=== PATIENT | female | born 1965 | race Hispanic/Latino ===

== ENCOUNTER 2017-10-22 16:16 | Emergency (ER) | payer OTHER ==
--- NOTE | 2017-10-22 16:41 | EDPHYS ---
Physician Documentation [facility] Name: Kianna Horton Age: 52 yrs Sex: Female : 1965 Arrival Date: 10/22/2017 Time: 16:20 Bed 13 Private MD: ED Physician Momo Up HPI: 10/22 16:35 This 52 yrs old Female presents to ER via Unassigned with complaints of joint rn pains. 16:35 Reports generalized aches and pains for months, told has arthritis, mad MRIs of knees rn yesterday, pcp just sent bloodwork, no results yet, states was tired of waiting for answers thought we could do faster tests here, so came in for evaluation. . Severity of symptoms: At their worst the symptoms were mild in the emergency department the symptoms are unchanged. The patient has experienced similar episodes in the past, chronically. 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 - Social history:: Smoking status: Patient/guardian denies using tobacco. - Family history:: not pertinent. - Hospitalizations: : No recent hospitalization is reported. ROS: 16:35 Constitutional: Negative for fever, chills, and weight loss, Eyes: Negative for injury, rn pain, redness, and discharge, Neck: Negative for injury, pain, and swelling, Cardiovascular: Negative for chest pain, palpitations, and edema, Respiratory: Negative for shortness of breath, cough, wheezing, and pleuritic chest pain, Abdomen/GI: Negative for abdominal pain, nausea, vomiting, diarrhea, and constipation, Back: Negative for injury and pain, MS/Extremity: Negative for injury and deformity, Skin: Negative for injury, rash, and discoloration, Neuro: Negative for headache, weakness, numbness, tingling, and seizure. Exam: 16:35 Constitutional: This is a well developed, well nourished patient who is awake, alert, rn and in no acute distress. Eyes: Pupils equal round and reactive to light, extra-ocular motions intact. Lids and lashes normal. Conjunctiva and sclera are non-icteric and not injected. Cornea within normal limits. Periorbital areas with no swelling, redness, or edema. Neck: Trachea midline, no thyromegaly or masses palpated, and no cervical lymphadenopathy. Supple, full range of motion without nuchal rigidity, or vertebral point tenderness. No Meningismus. Cardiovascular: Regular rate and rhythm with a normal S1 and S2. No gallops, murmurs, or rubs. Normal PMI, no JVD. No pulse deficits. Respiratory: Lungs have equal breath sounds bilaterally, clear to auscultation and percussion. No rales, rhonchi or wheezes noted. No increased work of breathing, no retractions or nasal flaring. Abdomen/GI: Soft, non-tender, with normal bowel sounds. No distension or tympany. No guarding or rebound. No evidence of tenderness throughout. MS/ Extremity: Pulses equal, no cyanosis. Neurovascular intact. Full, normal range of motion. Equal circumference. Neuro: Awake and alert, GCS 15, oriented to person, place, time, and situation. Cranial nerves II-XII grossly intact. Motor strength 5/5 in all extremities. Sensory grossly intact. Vital Signs: 16:23 BP 128 / 88; Pulse 109; Resp 19; Temp 98.7(O); Pulse Ox 100% on R/A; Weight 62.14 kg rb1 (R); Height 5 ft. 3 in. (160.02 cm) (R); Pain 9/10; 16:23 Body Mass Index 24.27 (62.14 kg, 160.02 cm) rb1 MDM: 16:22 Patient medically screened. rn 16:35 Differential Diagnosis osteoarthritis, polyarthritis, RA, lupus, autoimmune disorder. rn Data reviewed: vital signs, nurses notes, and as a result, I will discharge patient. Counseling: I had a detailed discussion with the patient and/or guardian regarding: the historical points, exam findings, and any diagnostic results supporting the discharge/admit diagnosis, the need for outpatient follow up, to return to the emergency department if symptoms worsen or persist or if there are any questions or concerns that arise at home. Special discussion: I discussed with the patient/guardian in detail that at this point there is no indication for admission to the hospital. It is understood, however, that if the symptoms persist or worsen the patient needs to return immediately for re-evaluation. Based on the history and exam findings, there is no indication for further emergent testing or inpatient evaluation. I discussed with the patient/guardian the need to see the primary care provider for further evaluation of the symptoms. ED course: No emergent testing indicated here, needs to f/u with pcp who has already started w/u, return precautions given and understood.. Administered Medications: No medications were administered Disposition: 10/22/17 16:40 Discharged to Home as Medical Screen. Impression: Polyarthritis, unspecified. - Condition is Stable. - Discharge Instructions: Arthritis, Nonspecific. - Medication Reconciliation Form, Thank You Letter, Antibiotic Education, Prescription Opioid Use form. - Follow up: Private Physician; When: As needed; Reason: Recheck today's complaints, Re-evaluation by your physician. - Problem is chronic. - Symptoms have improved. Signatures: Momo Up MD MD rn Barber, Rebecca, RN RN rb1 Corrections: (The following items were deleted from the chart) 16:40 16:40 10/22/2017 16:40 Discharged to Home. Impression: Polyarthritis, unspecified. rn Condition is Stable. Forms are Medication Reconciliation Form, Thank You Letter, Antibiotic Education, Prescription Opioid Use. Follow up: Private Physician; When: As needed; Reason: Recheck today's complaints, Re-evaluation by your physician. Problem is chronic. Symptoms have improved. rn 16:54 16:40 10/22/2017 16:40 Discharged to Home as Medical Screen. Impression: Polyarthritis, rb1 unspecified. Condition is Stable. Forms are Medication Reconciliation Form, Thank You Letter, Antibiotic Education, Prescription Opioid Use. Follow up: Private Physician; When: As needed; Reason: Recheck today's complaints, Re-evaluation by your physician. Problem is chronic. Symptoms have improved. rn
--- NOTE | 2017-10-22 16:41 | ER ---
Nurse's Notes [facility] Name: Kianna Horton Age: 52 yrs Sex: Female : 1965 Arrival Date: 10/22/2017 Time: 16:20 Bed 13 Private MD: Diagnosis: Polyarthritis, unspecified Presentation: 10/22 16:23 Presenting complaint: EMS states: Pt. is 52 yr. old female and is A x O x 4. Pt. called rb1 for c/o of body pain all over. She has had recent tests done at the doctors but has not received any results yet. The doctor is weaning her off of steroids. Pt. took 1/2 a hydrocodone at 1400 today. History of HTN, ulcerative colitis, and anxiety. Pt. takes medicine for HTN but doesn't know the name of it and also takes Adderall. NKA, BP 122/84, P 113, O2 95% RA. Transition of care: patient was not received from another setting of care. Onset of symptoms is unknown. Initial Sepsis Screen: Does the patient meet any 2 criteria? No. Patient's initial sepsis screen is negative. Does the patient have a suspected source of infection? No. Patient's initial sepsis screen is negative. Care prior to arrival: None. 16:23 Acuity: ANGELICA 3 rb1 16:23 Method Of Arrival: EMS: [facility] Triage Assessment: 16:23 General: Appears in no apparent distress. comfortable, Behavior is calm, cooperative. rb1 Pain: Complains of pain in generalized body aches Pain currently is 9 out of 10 on a pain scale. Neuro: Level of Consciousness is awake, alert, obeys commands, Oriented to person, place, time, situation. Cardiovascular: Capillary refill < 3 seconds is brisk in bilateral fingers. Respiratory: Airway is patent Respiratory effort is even, unlabored, Respiratory pattern is regular, symmetrical. GI: No signs and/or symptoms were reported involving the gastrointestinal system. : No signs and/or symptoms were reported regarding the genitourinary system. Derm: Skin is pink, warm \T\ dry. Musculoskeletal: Range of motion: intact in all extremities. 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 - Social history:: Smoking status: Patient/guardian denies using tobacco. - Family history:: not pertinent. - Hospitalizations: : No recent hospitalization is reported. Screenin:23 Abuse screen: Denies threats or abuse. Nutritional screening: No deficits noted. rb1 Tuberculosis screening: No symptoms or risk factors identified. Fall Risk None identified. Assessment: 16:23 General: see triage assessment. rb1 Vital Signs: 16:23 BP 128 / 88; Pulse 109; Resp 19; Temp 98.7(O); Pulse Ox 100% on R/A; Weight 62.14 kg rb1 (R); Height 5 ft. 3 in. (160.02 cm) (R); Pain 9/10; 16:23 Body Mass Index 24.27 (62.14 kg, 160.02 cm) rb1 ED Course: 16:20 Patient arrived in ED. aj1 16:22 Momo Up MD is Attending Physician. rn 16:23 Arm band placed on right wrist. rb1 16:23 Patient has correct armband on for positive identification. Bed in low position. Call rb1 light in reach. Side rails up X 1. Pulse ox on. NIBP on. 16:32 Kathleen Salguero, RN is Primary Nurse. rb1 16:37 Triage completed. rb1 16:54 No provider procedures requiring assistance completed. Patient did not have IV access rb1 during this emergency room visit. Administered Medications: No medications were administered Outcome: 16:40 Discharge ordered by . rn 16:54 Patient left the ED. rb1 16:54 Discharged to home via wheelchair. rb1 16:54 Condition: stable 16:54 Discharge instructions given to patient, Instructed on discharge instructions, follow up and referral plans. Demonstrated understanding of instructions, follow-up care, Prescriptions given X none Signatures: Maida Fritz RN RN aj1 Momo Up MD MD rn Barber, Rebecca, DANISH RN rb1
== END 2017-10-22 16:54 | disposition home or self-care (01) ==
LOC: ER 16:16
DX: M13.0 Polyarthritis, unspecified (principal); I10 Essential (primary) hypertension; F41.9 Anxiety disorder, unspecified
CPT/HCPCS: 99283

== ENCOUNTER 2018-02-12 16:39 | Emergency (ER) | payer OTHER ==
--- OUTSIDE RECORDS SUMMARY | 2018-02-12 16:41 | XMS REPORT | Continuity of Care Document ---
:1965 Author Organization Interface Problems Problem Status Onset Classification Date Comments Source Date Reported ABDOMINAL PAIN Active Sugar GENERALIZED-R10 6 Land .84 / ULCE Nonspecific Active Problem 01/07/2017 [facility] ulcerative [place], colitis [facility] Medications Medication Details Route Status Patient Ordering Order Source Instructions Provider Date Allergies, Adverse Reactions, Alerts Substance Category Reaction Severity Reaction Status Date Comments Source type Reported NKDA Assertion Drug Active [facility] allergy [place] Immunizations Immunization Date Given Site Status Last Updated Comments Source Results Order Results Value Reference Date Interpretation Comments Source Name Range Abdomen Abdomen Study: Abdomen complete US 01/04 - [facility] complete complete /2016 - [place] US US Clinical Indication: R74.0 Nonspecific elevation of levels of transaminase and lactic acid dehydrogenase [LDH] - R74.0 Nonspecific elevation of levels of transaminase and lactic acid dehydrogenase [LDH] Read by: Paramjit Campbell MD Dictated Date/time: 01/04/17 09:43 Electronically Signed by: Paramjit Campbell MD 01/04/17 09:46 FINAL REPORT Comparison: MRI of the abdomen from 12/21/2016. TECHNIQUE: Grayscale and limited color sonographic evaluation of the abdomen was performed with standard technique. FINDINGS: The liver is echogenic measuring 17.1 cm.The visualized portions of the pancreas are unremarkable. The visualized portions of the abdominal aorta and IVC are unremarkable. The gallbladder is mildly contracted. 4 mm polyp in the gallbladder lumen is seen. No pericholecystic fluid is present. No echogenic shadowing gallstone or gallbladder sludge is present. There is no biliary duct dilatation. Common bile duct measures 4 mm. The bilateral kidneys are normal in size and echotexture without stones or hydronephrosis. The right kidney measures 10.8 x 3.5 x 5 cm. The left kidney measures 10.9 x 5 x 5.3 cm. The spleen is normal in size and echotexture measuring 7.1 cm. The main portal vein is patent and with hepatopedal flow. The right, middle , and left hepatic veins are patent with hepatofugal flow. Hepatic artery is patent. No free fluid is noted. IMPRESSION: 1. Hepatomegaly with increased echotexture of the liver, compatible with fatty infiltration or fibrosis. 2. 4 mm gallbladder polyp. SL: [id number] Abdomen Abdomen 12/21 - [facility] wo /2016 - [place] contrast contrast EXAM: Abdomen wo contrast MRI MRI MRI Read by: Paramjit Campbell MD Dictated Date/time: 12/21/16 10:57 INDICATION: R10.13 Epigastric pain - R10.13 Epigastric pain Electronically Signed by: Paramjit Campbell MD 12/21/16 11 :00 FINAL REPORT COMPARISON: CT abdomen and pelvis from 01/30/2009 TECHNIQUE: Multiplanar, multisequence magnetic resonance imaging of the abdomen was performed without the administration of intravenous gadolinium contrast. MRCP protocol was utilized. FINDINGS: Hepatomegaly is noted. No filling defect is noted throughout the gallbladder to suggest stone. No intrahepatic or extra hepatic biliary duct dilatation is seen. Common bile duct measures 3 mm in diameter. No filling defect in the common bile duct to suggest stone is seen. No pancreatic ductal dilatation is noted. Pancreas, spleen, adrenal glands, and kidneys are normal in appearance. No pathologic adenopathy or ascites is seen. IMPRESSION: 1. No intrahepatic or extrahepatic biliary duct dilatation and no evidence of choledocholithiasis. 2. No cholelithiasis. 3. Hepatomegaly. SL: [id number] Vital Signs Vital Sign Value Date Comments Source Weight 46.818 10/12/2015 [facility] BMI Calculated 20.16 10/12/2015 [facility] Height 152.4 cm 10/12/2015 [facility] Encounters Location Location Encounter Encounter Reason Attending ADM DC Status Source Details Type Number For Provider Date Date Visit Outpatient [id number] SILVINO 09/07 [facility] Outpatient [id number] SILVINO 09/28 [facility] Bedded [id number] Silvino 10/13 10/13 [facility] Outpatient Garcia /2015 [facility] Outpatient [id number] SILVINO 11/02 [facility] Outpatient [id number] SILVINO 01/18 [facility] Outpt Diag [id number] Fritz 12/21 12/22 [facility] Outpt Diag [id number] Fritz 01/04 01/05 [facility] Outpatient Services [facility] [address] Procedures Procedure Code Date Perfomer Comments Source
[2018-02-12] MEDS ORDERED: ONDANSETRON 4 MG/2 ML VIAL ONE (18:56)
[2018-02-12] MEDS ORDERED: NA CHLORIDE 0.9% 1,000 ML ONE (18:56)
[2018-02-12] MEDS ORDERED: MORPHINE 4 MG/ML SYR ONE (18:56)
[2018-02-12 19:35] LABS: Absolute Lymphocytes (CBC) 2.2 K/uL (0.7-4.9); Absolute Monocytes 1.1 K/uL (0.1-1.3); Absolute Neutrophil 9.6 K/uL (1.8-8.0); Basophils % 1.4 % (0-1.3); Eosinophils % 1.1 % (0-4.4); Hematocrit 38.1 % (36.0-45.0); Lymphocytes % 16.3 % (15.3-44.8); MCH 24.9 pg (27.0-35.0); MCV 75.9 fL (80-100); MPV 8.2 fL (7.6-11.3); Monocytes % 8.3 % (3.3-12.3); RBC Red Blood Cell Count 5.02 M/uL (3.86-4.86)
[2018-02-12 19:44] LABS: Potassium 3.8 mmol/L (3.5-5.1)
--- NOTE | 2018-02-12 20:16 | RAD REPORT ---
EXAM DESCRIPTION: CTAbdomen Pelvis W Contrast - 02/12/2018 8:02 pm CLINICAL HISTORY: Abdominal pain. bilateral flank pain, iv contrast only;Abd pain COMPARISON: CT ABD PELVIS W CONTRAST dated 10/12/2014 TECHNIQUE: Biphasic CT imaging of the abdomen and pelvis was performed with 100 ml non-ionic IV cont rast. All CT scans are performed using dose optimization technique as appropriate and may include automated exposure control or mA/KV adjustment according to patient size. FINDINGS: The lung bases are clear. The liver, spleen, pancreas, adrenal glands are within normal limits. The pelvicaliceal system of bot h kidneys appear somewhat prominent. There is mild enhancement suspected of the uroepithelium bilater ally, greater on the right. The findings raise suspicion for ascending urinary tract infection. CT fi ndings of pyelonephritis are not seen. No bowel obstruction, free air, free fluid or abscess. The colon is incompletely distended and is not fully evaluated. The appendix is normal. No evidence of significant lymphadenopathy. Lumbosacral degenerative changes are noted. IMPRESSION: Findings suspicious for ascending urinary tract infection are noted. Recommend correlati on with urinalysis. Elsewhere, no acute abnormality is detected.
[2018-02-12 20:25] LABS: Urine Blood 3+ (NEG); Urine Glucose NEGATIVE (NEG); Urine Protein 3+ (NEG); Urine Specific Gravity 1.025 (1.005-1.030)
--- NOTE | 2018-02-12 20:46 | EDPHYS ---
Physician Documentation [facility] Name: Kianna Horton Age: 52 yrs Sex: Female : 1965 Arrival Date: 02/12/2018 Time: 16:40 Bed 23 Private MD: Jamarcus Young E ED Physician Wallace Lemons HPI: 02/12 19:48 This 52 yrs old Female presents to ER via Wheelchair with complaints of kb Abdominal Pain, Vomiting. 19:48 The patient complains of pain in the left flank and right flank. The pain does not kb radiate. Onset: The symptoms/episode began/occurred yesterday. Modifying factors: The symptoms are alleviated by nothing. the symptoms are aggravated by palpation/percussion. Associated signs and symptoms: Pertinent positives: nausea, vomiting. Severity of pain: At its worst the pain was moderate in the emergency department the pain is unchanged. The patient has not experienced similar symptoms in the past. The patient has not recently seen a physician. 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 - Social history:: Smoking status: Patient uses tobacco products, smokes one-half pack cigarettes per day. - Ebola Screening: : No symptoms or risks identified at this time. ROS: 19:48 Constitutional: Negative for fever, chills, and weight loss, Cardiovascular: Negative kb for chest pain, palpitations, and edema, Respiratory: Negative for shortness of breath, cough, wheezing, and pleuritic chest pain, : Negative for injury, bleeding, discharge, and swelling, MS/Extremity: Negative for injury and deformity, Skin: Negative for injury, rash, and discoloration, Neuro: Negative for headache, weakness, numbness, tingling, and seizure. 19:48 Abdomen/GI: Positive for nausea and vomiting, Negative for abdominal pain, diarrhea, constipation, abdominal cramps, abdominal distension, anorexia. Exam: 19:50 Constitutional: This is a well developed, well nourished patient who is awake, alert, kb and in no acute distress. Head/Face: Normocephalic, atraumatic. ENT: Nares patent. No nasal discharge, no septal abnormalities noted. Tympanic membranes are normal and external auditory canals are clear. Oropharynx with no redness, swelling, or masses, exudates, or evidence of obstruction, uvula midline. Mucous membranes moist. Neck: Trachea midline, no thyromegaly or masses palpated, and no cervical lymphadenopathy. Supple, full range of motion without nuchal rigidity, or vertebral point tenderness. No Meningismus. Chest/axilla: Normal chest wall appearance and motion. Nontender with no deformity. No lesions are appreciated. Cardiovascular: Regular rate and rhythm with a normal S1 and S2. No gallops, murmurs, or rubs. Normal PMI, no JVD. No pulse deficits. Respiratory: Lungs have equal breath sounds bilaterally, clear to auscultation and percussion. No rales, rhonchi or wheezes noted. No increased work of breathing, no retractions or nasal flaring. Abdomen/GI: Soft, non-tender, with normal bowel sounds. No distension or tympany. No guarding or rebound. No evidence of tenderness throughout. Skin: Warm, dry with normal turgor. Normal color with no rashes, no lesions, and no evidence of cellulitis. MS/ Extremity: Pulses equal, no cyanosis. Neurovascular intact. Full, normal range of motion. Neuro: Awake and alert, GCS 15, oriented to person, place, time, and situation. Cranial nerves II-XII grossly intact. Motor strength 5/5 in all extremities. Sensory grossly intact. Cerebellar exam normal. Normal gait. 19:50 Back: CVA tenderness, that is moderate, is noted on the right, is noted on the left. Vital Signs: 16:57 BP 143 / 98; Pulse 91; Resp 18 S; Temp 98.0(TE); Pulse Ox 100% on R/A; Weight 54.43 kg aa5 (R); Height 5 ft. 0 in. (152.40 cm) (R); Pain 10/10; 21:13 BP 149 / 105; Pulse 77; Resp 18; Pulse Ox 97% on R/A; tl3 16:57 Body Mass Index 23.44 (54.43 kg, 152.40 cm) aa5 MDM: 18:19 Patient medically screened. kb 19:50 Data reviewed: vital signs, nurses notes. Data interpreted: Pulse oximetry: on room air kb is 100 %. Interpretation: normal. 20:33 Counseling: I had a detailed discussion with the patient and/or guardian regarding: the kb historical points, exam findings, and any diagnostic results supporting the discharge/admit diagnosis, lab results, radiology results, the need for outpatient follow up, a family practitioner, to return to the emergency department if symptoms worsen or persist or if there are any questions or concerns that arise at home. 02/12 18:23 Order name: CBC with Diff; Complete Time: 19:46 kb 02/12 18:23 Order name: Basic Metabolic Panel; Complete Time: 19:46 kb 02/12 18:23 Order name: Urine Microscopic Only; Complete Time: 21:13 kb 02/12 19:45 Order name: Urine Dipstick--Ancillary (enter results); Complete Time: 20:31 rg2 02/12 19:45 Order name: Urine --Ancillary (enter results); Complete Time: 20:31 rg2 02/12 18:23 Order name: Urine Dipstick-Ancillary (obtain specimen) kb 02/12 18:24 Order name: IV Start; Complete Time: 21:05 kb 02/12 19:47 Order name: CT Abd/Pelvis - W/Contrast; Complete Time: 20:18 kb Administered Medications: 19:00 Drug: NS 0.9% 1000 ml Route: IV; Rate: 1000 ml; Site: left antecubital; Delivery: tl3 Primary tubing; 20:00 Follow up: IV Status: Completed infusion; IV Intake: 1000ml tl3 19:00 Drug: Zofran 4 mg Route: IVP; Infused Over: 2 mins; Site: left antecubital; tl3 21:06 Follow up: Response: No adverse reaction tl3 19:00 Drug: morphine 4 mg Route: IVP; Infused Over: 3 mins; Site: left antecubital; tl3 21:09 Follow up: Response: Pain is decreased tl3 21:09 Drug: Rocephin - (cefTRIAXone) 1 grams {Note: ivp.} Route: IVPB; Infused Over: 5 mins; tl3 Site: left antecubital; 21:09 Follow up: IV Status: Completed infusion; IV Intake: 20ml tl3 Disposition: 02/13 06:49 Co-signature as Attending Physician, Wallace Lemons MD I agree with the assessment and robert plan of care. Disposition: 02/12/18 20:46 Discharged to Home. Impression: Urinary tract infection, site not specified. - Condition is Stable. - Discharge Instructions: Urinary Tract Infection, Adult, [id number], Form - Return To Work. - Prescriptions for Augmentin 875- 125 mg Oral Tablet - take 1 tablet by ORAL route every 12 hours for 10 days; 20 tablet. - Medication Reconciliation Form, Thank You Letter, Antibiotic Education, Prescription Opioid Use, Work release form form. - Follow up: Emergency Department; When: As needed; Reason: Worsening of condition. Follow up: Private Physician; When: 2 - 3 days; Reason: Recheck today's complaints, Continuance of care, Re-evaluation by your physician. Signatures: Dispatcher [employer] EDMS Petra Faye, AGRICULTURAL ENGINEERING TECHNOLOGIST-C AGRICULTURAL ENGINEERING TECHNOLOGIST-Saravananb Wallace Lemons MD MD cha Calderon, Audri, RN RN aa5 Nellie Toribio, RN RN tl3 Corrections: (The following items were deleted from the chart) 02/12 19:50 19:48 Associated signs and symptoms: The patient has no apparent associated signs or kb symptoms, kb 21:16 20:46 02/12/2018 20:46 Discharged to Home. Impression: Urinary tract infection, site tl3 not specified. Condition is Stable. Discharge Instructions: Urinary Tract Infection, Adult, [id number]-Zpli. Prescriptions for Augmentin 875-125 mg Oral Tablet - take 1 tablet by ORAL route every 12 hours for 10 days; 20 tablet. and Forms are Medication Reconciliation Form, Thank You Letter, Antibiotic Education, Prescription Opioid Use. Follow up: Emergency Department; When: As needed; Reason: Worsening of condition. Follow up: Private Physician; When: 2 - 3 days; Reason: Recheck today's complaints, Continuance of care, Re-evaluation by your physician. kb
--- NOTE | 2018-02-12 20:46 | ER ---
Nurse's Notes [facility] Name: Kianna Horton Age: 52 yrs Sex: Female : 1965 Arrival Date: 02/12/2018 Time: 16:40 Bed 23 Private MD: Jamarcus Young E Diagnosis: Urinary tract infection, site not specified Presentation: 02/12 16:56 Presenting complaint: Patient states: shahzad flank pain that began yesterday. Pt reports aa5 nausea, denies vomiting, denies diarrhea. Transition of care: patient was not received from another setting of care. Onset of symptoms was February 2018. Risk Assessment: Do you want to hurt yourself or someone else? Patient reports no desire to harm self or others. Initial Sepsis Screen: Does the patient meet any 2 criteria? No. Patient's initial sepsis screen is negative. Does the patient have a suspected source of infection? No. Patient's initial sepsis screen is negative. Care prior to arrival: None. 16:56 Method Of Arrival: Wheelchair aa5 16:56 Acuity: ANGELICA 3 aa5 Triage Assessment: 21:16 General: Behavior is calm, cooperative, anxious. 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 - Social history:: Smoking status: Patient uses tobacco products, smokes one-half pack cigarettes per day. - Ebola Screening: : No symptoms or risks identified at this time. Screenin:00 Abuse screen: Denies threats or abuse. Nutritional screening: No deficits noted. tl3 Tuberculosis screening: No symptoms or risk factors identified. Fall Risk None identified. Assessment: 17:00 General: Appears distressed, uncomfortable, slender, well groomed, well developed, well tl3 nourished. Pain: Complains of pain in right flank and left flank Pain currently is 10 out of 10 on a pain scale. Neuro: Level of Consciousness is awake, alert, obeys commands. Cardiovascular: Patient's skin is warm and dry. Respiratory: Airway is patent Respiratory effort is even, unlabored, Respiratory pattern is regular, symmetrical. GI: No signs and/or symptoms were reported involving the gastrointestinal system. : Urine is cloudy, Reports urinary frequency. EENT: No signs and/or symptoms were reported regarding the EENT system. Derm: No signs and/or symptoms reported regarding the dermatologic system. Musculoskeletal: No signs and/or symptoms reported regarding the musculoskeletal system. 21:13 Reassessment: No changes from previously documented assessment. Patient and/or family tl3 updated on plan of care and expected duration. Pain level reassessed. Patient is alert, oriented x 3, equal unlabored respirations, skin warm/dry/pink. 21:16 GI: tl3 Vital Signs: 16:57 BP 143 / 98; Pulse 91; Resp 18 S; Temp 98.0(TE); Pulse Ox 100% on R/A; Weight 54.43 kg aa5 (R); Height 5 ft. 0 in. (152.40 cm) (R); Pain 10/10; 21:13 BP 149 / 105; Pulse 77; Resp 18; Pulse Ox 97% on R/A; tl3 16:57 Body Mass Index 23.44 (54.43 kg, 152.40 cm) aa5 ED Course: 16:40 Patient arrived in ED. mr 16:41 Jamarcus Young MD is Private Physician. mr 16:56 Triage completed. aa5 16:58 Arm band placed on Patient placed in waiting room, Patient notified of wait time. aa5 17:00 Patient has correct armband on for positive identification. Bed in low position. Call tl3 light in reach. Side rails up X 1. Adult w/ patient. Pulse ox on. NIBP on. 17:00 No provider procedures requiring assistance completed. Inserted saline lock: 20 gauge tl3 in left antecubital area, using aseptic technique. Blood collected. 18:19 Petra Faye FNP-C is PHCP. kb 18:19 Wallace Lemons MD is Attending Physician. kb 18:48 Nellie Toribio, DANISH is Primary Nurse. tl3 19:[address] sj 20:02 CT completed. Patient tolerated procedure well. Patient moved back from CT. nj 20:03 CT Abd/Pelvis - W/Contrast In Process Unspecified. EDMS 21:13 IV discontinued, intact, bleeding controlled, No redness/swelling at site. Pressure tl3 dressing applied. Administered Medications: 19:00 Drug: NS 0.9% 1000 ml Route: IV; Rate: 1000 ml; Site: left antecubital; Delivery: tl3 Primary tubing; 20:00 Follow up: IV Status: Completed infusion; IV Intake: 1000ml tl3 19:00 Drug: Zofran 4 mg Route: IVP; Infused Over: 2 mins; Site: left antecubital; tl3 21:06 Follow up: Response: No adverse reaction tl3 19:00 Drug: morphine 4 mg Route: IVP; Infused Over: 3 mins; Site: left antecubital; tl3 21:09 Follow up: Response: Pain is decreased tl3 21:09 Drug: Rocephin - (cefTRIAXone) 1 grams {Note: ivp.} Route: IVPB; Infused Over: 5 mins; tl3 Site: left antecubital; 21:09 Follow up: IV Status: Completed infusion; IV Intake: 20ml tl3 Intake: 20:00 IV: 1000ml; Total: 1000ml. tl3 21:09 IV: 20ml; Total: 1020ml. tl3 Outcome: 20:46 Discharge ordered by MD. calderón 21:13 Discharged to home ambulatory. tl3 21:13 Condition: stable 21:13 Discharge instructions given to patient, family, Instructed on discharge instructions, follow up and referral plans. medication usage, Demonstrated understanding of instructions, follow-up care, medications, Prescriptions given X 1. 21:16 Patient left the ED. tl3 Signatures: Dispatcher [employer] EDMS Petra Faye, GREGOR BYRDP-Aria Flowers Susan sj Calderon, Audri, RN RN aa5 Nathanael Lopez Tammy, RN RN tl3
[2018-02-12] MEDS ORDERED: CEFTRIAXONE/SWI 1gm 1 GM/10 ML SYR ONE (21:03)
[2018-02-12 21:10] LABS: Urine Bacteria <20 /HPF (<20); Urine RBC TNTC /HPF (NONE SEEN)
[2018-02-12 21:11] LABS: Urine Culture Reflex Order NOT NEEDED
== END 2018-02-12 21:16 | disposition home or self-care (01) ==
LOC: ER 16:39
DX: N39.0 Urinary tract infection, site not specified (principal); I10 Essential (primary) hypertension; F17.210 Nicotine dependence, cigarettes, uncomplicated
CPT/HCPCS: 36415; 74177; 80048; 81003; 81015; 81025; 85025; 96361; 96374; 96375; 99284; J0696; J2405; J7030; Q9967

== ENCOUNTER 2018-05-23 11:19 | Emergency (ER) | payer OTHER ==
--- OUTSIDE RECORDS SUMMARY | 2018-05-23 11:21 | XMS REPORT | Continuity of Care Document ---
:1965 Author Organization Interface Problems Problem Status Onset Classification Date Comments Source Date Reported ABDOMINAL PAIN Active Sugar GENERALIZED-R10 6 Land .84 / ULCE Nonspecific Active Problem 01/07/2017 [facility] ulcerative [place], colitis [place] Medications Medication Details Route Status Patient Ordering Order Source Instructions Provider Date Allergies, Adverse Reactions, Alerts Substance Category Reaction Severity Reaction Status Date Comments Source type Reported Immunizations Immunization Date Given Site Status Last Updated Comments Source Results Order Results Value Reference Date Interpretation Comments Source Name Range Abdomen Abdomen Study: Abdomen complete US 01/04 - [facility] complete complete /2016 - [place] US US Clinical Indication: R74.0 Nonspecific elevation [...] fibrosis. 2. 4 mm gallbladder polyp. SL: [id number] Abdomen Abdomen 12/21 - [facility] wo wo /2016 - [place] contrast contrast EXAM: Abdomen wo contrast MRI [...] choledocholithiasis. 2. No cholelithiasis. 3. Hepatomegaly. SL: [id number] Vital Signs Vital Sign Value Date Comments Source Weight 46.818 10/12/2015 [facility] BMI Calculated 20.16 10/12/2015 [facility] Height 152.4 cm 10/12/2015 [facility] Encounters Location Location Encounter Encounter Reason Attending ADM [place] Status Source Details Type Number For Provider Date Date Visit Outpatient [id number] SILVINO 09/07 [facility] [place] Outpatient [id number] SILVINO 09/28 [facility] Bedded [id number] Silvino 10/13 10/13 [facility] Outpatient Garcia [facility] Outpatient [id number] SILVINO 11/02 [facility] Outpatient [id number] SILVINO 01/18 [facility] Outpt Diag [id number] Fritz 12/21 12/22 [facility] Outpt Diag [id number] Fritz 01/04 01/05 [facility] Procedures Procedure Code Date Perfomer Comments Source
[2018-05-23] MEDS ORDERED: TETANUS & DIPHTHERIA TOX,ADULT 0.5 ML VIAL ONE (12:11)
[2018-05-23] MEDS ORDERED: IBUPROFEN 400 MG TAB ONE (13:02)
--- NOTE | 2018-05-23 13:07 | RAD REPORT ---
EXAM DESCRIPTION: RAD - Hand Left 3 View - 05/23/2018 12:55 pm CLINICAL HISTORY: Dog bite left second digit COMPARISON: None. FINDINGS: No fracture, dislocation or periosteal reaction noted. No acute bone or joint finding. Min imal soft tissue injury is evident left second digit. No air or foreign body. IMPRESSION: No left hand bone abnormality. No air or foreign body in the soft tissues.
--- NOTE | 2018-05-23 13:13 | ER ---
Nurse's Notes [facility] Name: Kianna Horton Age: 52 yrs Sex: Female : 1965 Arrival Date: 05/23/2018 Time: 11:22 Bed 24 Private MD: Jamarcus Young E Diagnosis: Bitten by dog-Left index finger, right lower leg and upper legs Presentation: 05/23 11:35 Presenting complaint: Patient states: dog bite by a friends dog, bitten to the LLE, sv RLE, and left 2nd digit. Transition of care: patient was not received from another setting of care. Onset of symptoms was May 22, 2018. Care prior to arrival: None. 11:35 Method Of Arrival: Ambulatory sv 11:35 Acuity: ANGELICA 4 sv 11:45 Note [place] PD called and stated they would let their aerospace engineer officer armament know. sv 12:05 Risk Assessment: Do you want to hurt yourself or someone else? Patient reports no ss desire to harm self or others. Initial Sepsis Screen: Does the patient meet any 2 criteria? No. Patient's initial sepsis screen is negative. Does the patient have a suspected source of infection? No. Patient's initial sepsis screen is negative. Triage Assessment: 12:05 Bite description: bite sustained to L hand, R buttock, L buttock by a dog, animal ss information: vaccination(s) is current. 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 - Social history:: Smoking status: Patient uses tobacco products, smokes one pack cigarettes per day. - Ebola Screening: : No symptoms or risks identified at this time. Screenin:00 Abuse screen: Denies threats or abuse. Denies injuries from another. Nutritional ss screening: No deficits noted. Tuberculosis screening: No symptoms or risk factors identified. Never had TB. Fall Risk None identified. Assessment: 11:50 General: Appears in no apparent distress. comfortable, Behavior is cooperative, ss restless, Denies fever, feeling ill, fatigue, chills. Pain: Complains of pain in L finger, R buttock, L thigh Pain currently is 5 out of 10 on a pain scale. Quality of pain is described as tender, Pain began 1 day ago. Is continuous. Neuro: Level of Consciousness is awake, alert, obeys commands, Oriented to person, place, time, situation. Cardiovascular: Capillary refill < 3 seconds is brisk. Respiratory: Airway is patent Respiratory effort is even, unlabored, Respiratory pattern is regular, symmetrical. GI: Patient currently denies diarrhea, nausea, vomiting. : No signs and/or symptoms were reported regarding the genitourinary system. EENT: Nares are clear Oral mucosa is moist. Throat is clear. Derm: Skin is intact, is healthy with good turgor, Skin is pink, warm \T\ dry. normal. Musculoskeletal: Circulation, motion, and sensation intact. Range of motion: intact in all extremities, Swelling absent. Injury Description: small puncture wounds from dog bite noted to L thigh, R buttock, L index finger, no bleeding noted. 12:30 Reassessment: wounds cleaned with saline and hibiclens. Covered with non adherent ss dressing, antibiotic ointment and tape. Pt tolerated well. Is grateful for care received. 13:07 Reassessment: Patient appears in no apparent distress at this time. awaiting XRAY ss results. Vital Signs: 11:37 BP 151 / 117; Pulse 94; Resp 16; Temp 97; Pulse Ox 97% ; Weight 56.7 kg; Height 5 ft. 0 sv in. (152.40 cm); Pain 5/10; 11:37 Body Mass Index 24.41 (56.70 kg, 152.40 cm) sv ED Course: 11:22 Patient arrived in ED. sb2 11:22 Jamarcus Young MD is Private Physician. sb2 11:36 Triage completed. sv 11:38 Arm band placed on. sv 11:48 Wallace Padilla PA is PHCP. cp 11:48 Wallace Lemons MD is Attending Physician. cp 12:00 Kymberly Bishop RN is Primary Nurse. ss 12:00 Patient has correct armband on for positive identification. Bed in low position. Call ss light in reach. 12:52 X-ray completed. Portable x-ray completed in exam room. Patient tolerated procedure ls3 well. 12:56 XRAY Hand LEFT 3 View In Process Unspecified. EDMS 13:08 No provider procedures requiring assistance completed. Patient did not have IV access ss during this emergency room visit. Administered Medications: 12:13 Drug: Tetanus-Diphtheria Toxoid Adult 0.5 ml {Recep: [employer]. Exp: ss 06/28/2020. Lot #: [id number]. } Route: IM; Site: right deltoid; 12:51 Follow up: Response: No adverse reaction ss 12:54 Drug: Ibuprofen 800 mg Route: PO; ss 13:22 Follow up: Response: No adverse reaction; Medication administered at discharge. ss 13:22 Drug: Augmentin 875 mg Route: PO; ss 13:22 Follow up: Response: Medication administered at discharge. Outcome: 13:12 Discharge ordered by MD. cp 13:22 Discharged to home ambulatory. ss 13:22 Condition: good 13:22 Discharge instructions given to patient, Instructed on discharge instructions, follow up and referral plans. medication usage, wound care, Demonstrated understanding of instructions, follow-up care, medications, wound care, Prescriptions given X 2. 13:51 Patient left the ED. kr2 Signatures: Dispatcher [employer] EDKY Marge Hernandez RN RN Kymberly Bishop RN RN Wallace Padilla PA PA cp Reaves, Karey, RN RN kr2 Sweta Gurrola2 Dereck Haywood ls3 Corrections: (The following items were deleted from the chart) 11:38 11:37 BP 151 / 117; Pulse 94bpm; Resp 16bpm; Pulse Ox 97%; Temp 97F; sv sv
--- NOTE | 2018-05-23 13:13 | EDPHYS ---
Physician Documentation [facility] Name: Kianna Horton Age: 52 yrs Sex: Female : 1965 Arrival Date: 05/23/2018 Time: 11:22 Bed 24 Private MD: Jamarcus Young E ED Physician Wallace Lemons HPI: 05/23 11:55 This 52 yrs old Female presents to ER via Ambulatory with complaints of Dog cp Bite. 11:55 The patient was bitten on the left hand, right leg and left leg, by a dog, in an cp unprovoked manner, at a friend's house. 11:55 Onset: The symptoms/episode began/occurred yesterday. Animal information: cp Patient/Caregiver unable to provide information related to the animal. Animal control has been notified. Secondary to the bite the patient reports multiple puncture wounds, that are superficial. Associated signs and symptoms: Pertinent negatives: fever, suspected foreign body. OFFICE ADMINISTRATION: 12:05 LMP N/A - ss Historical: - Allergies: 11:36 No Known Allergies; sv - PMHx: 11:36 Anxiety; Hypertension; ulcerative colitis; sv - PSHx: 11:36 None; sv - Immunization history:: Last tetanus immunization: unknown. - Social history:: Smoking status: Patient uses tobacco products, smokes one pack cigarettes per day. - Ebola Screening: : No symptoms or risks identified at this time. ROS: 12:00 Constitutional: Negative for chills, fever, poor PO intake. cp 12:00 Eyes: Negative for injury, pain, redness, and discharge. cp 12:00 ENT: Negative for drainage from ear(s), ear pain, sore throat, difficulty swallowing, difficulty handling secretions. 12:00 Cardiovascular: Negative for chest pain, edema, palpitations. 12:00 Respiratory: Negative for cough, shortness of breath, wheezing. 12:00 Abdomen/GI: Negative for abdominal pain, nausea, vomiting, and diarrhea. 12:00 Skin: Positive for of the left hand, right leg and left leg, multiple dog bite. 12:00 All other systems are negative. Exam: 12:10 Constitutional: The patient appears in no acute distress, alert, awake, non-toxic, well cp developed, well nourished. 12:10 Head/Face: Normocephalic, atraumatic. cp 12:10 Eyes: Periorbital structures: appear normal, Conjunctiva: normal, no exudate, no injection, Lids and lashes: appear normal, bilaterally. 12:10 ENT: External ear(s): are unremarkable, Nose: is normal, Mouth: is normal, Posterior pharynx: Airway: no evidence of obstruction, patent. 12:10 Chest/axilla: Inspection: normal. 12:10 Cardiovascular: Rate: normal. 12:10 Respiratory: the patient does not display signs of respiratory distress, Respirations: normal, no use of accessory muscles, no retractions, no splinting, no tachypnea. 12:10 Abdomen/GI: Exam negative for discomfort, distension, guarding, Inspection: abdomen appears normal. 12:10 Skin: injury, bite(s), superficial, of the bilateral upper leg and distal phalanx left index finger, that can be described as without bleeding. Vital Signs: 11:37 BP 151 / 117; Pulse 94; Resp 16; Temp 97; Pulse Ox 97% ; Weight 56.7 kg; Height 5 ft. 0 sv in. (152.40 cm); Pain 5/10; 11:37 Body Mass Index 24.41 (56.70 kg, 152.40 cm) sv MDM: 11:48 Patient medically screened. cp 13:11 Data reviewed: vital signs, nurses notes, radiologic studies, plain films, and as a cp result, I will discharge patient. 13:11 Differential diagnosis: superficial laceration, rabies, cellulitis. Test cp interpretation: by ED physician or midlevel provider: plain radiologic studies. Counseling: I had a detailed discussion with the patient and/or guardian regarding: the historical points, exam findings, and any diagnostic results supporting the discharge/admit diagnosis, radiology results, to return to the emergency department if symptoms worsen or persist or if there are any questions or concerns that arise at home. 05/23 12:14 Order name: XRAY Hand LEFT 3 View; Complete Time: 13:08 cp 05/23 13:09 Interpretation: Report reviewed. cp 05/23 12:42 Order name: Wound dressing; Complete Time: 12:51 cp Administered Medications: 12:13 Drug: Tetanus-Diphtheria Toxoid Adult 0.5 ml {Carrier Packer: [employer]. Exp: ss 06/28/2020. Lot #: [id number]. } Route: IM; Site: right deltoid; 12:51 Follow up: Response: No adverse reaction 12:54 Drug: Ibuprofen 800 mg Route: PO; ss 13:22 Follow up: Response: No adverse reaction; Medication administered at discharge. ss 13:22 Drug: Augmentin 875 mg Route: PO; ss 13:22 Follow up: Response: Medication administered at discharge. Disposition: 16:15 Co-signature as Attending Physician, Wallace Lemons MD I agree with the assessment and robert plan of care. Disposition: 05/23/18 13:12 Discharged to Home. Impression: Bitten by dog - Left index finger, right lower leg and upper legs. - Condition is Stable. - Discharge Instructions: Animal Bite. - Prescriptions for Augmentin 875- 125 mg Oral Tablet - take 1 tablet by ORAL route every 12 hours for 10 days; 20 tablet. Tramadol 50 mg Oral Tablet - take 1 tablet by ORAL route every 8 hours as needed; 12 tablet. - Medication Reconciliation Form, Thank You Letter, Antibiotic Education, Prescription Opioid Use form. - Follow up: Private Physician; When: 48 Hours; Reason: Wound Recheck. - Problem is new. - Symptoms have improved. Signatures: Dispatcher [employer] Marge Camilo RN Wallace Rascon MD MD cha Smirch, Shelby RN Wallace Dhillon PA PA cp Reaves, Karey, RN RN kr2 Corrections: (The following items were deleted from the chart) 13:51 13:12 05/23/2018 13:12 Discharged to Home. Impression: Bitten by dog - Left index kr2 finger, right lower leg and upper legs. Condition is Stable. Forms are Medication Reconciliation Form, Thank You Letter, Antibiotic Education, Prescription Opioid Use. Follow up: Private Physician; When: 48 Hours; Reason: Wound Recheck. Problem is new. Symptoms have improved. cp
[2018-05-23] MEDS ORDERED: AMOX/K CLAV 875 MG TAB ONE (13:28)
== END 2018-05-23 13:51 | disposition home or self-care (01) ==
LOC: ER 11:19
DX: S80.872A Other superficial bite, left lower leg, initial encounter (principal); S80.871A Other superficial bite, right lower leg, initial encounter; S60.471A Other superficial bite of left index finger, initial encounter; W54.0XXA Bitten by dog, initial encounter; Y93.9 Activity, unspecified; Y92.89 Other specified places as the place of occurrence of the external cause; Z23 Encounter for immunization; F17.210 Nicotine dependence, cigarettes, uncomplicated; I10 Essential (primary) hypertension
CPT/HCPCS: 90714; 99283

== ENCOUNTER 2018-10-10 16:34 | Emergency (ER) | payer OTHER ==
--- OUTSIDE RECORDS SUMMARY | 2018-10-10 16:35 | XMS REPORT ---
:1965 [facility] Address [address] [place] [id number] Care Team Providers Name Role Phone Unavailable Unavailable Unavailable Problems This patient has no known problems. Allergies, Adverse Reactions, Alerts This patient has no known allergies or adverse reactions. Medications This patient has no known medications.
[2018-10-10] MEDS ORDERED: LIDOCAINE 1% MPF 5 ML VIAL ONE (17:16)
[2018-10-10] MEDS ORDERED: BUPIVACAINE 0.5% PF 10 ML VIAL ONE (17:16)
[2018-10-10] MEDS ORDERED: ACETAMINOPHEN 500 MG TAB ONE (17:28)
--- NOTE | 2018-10-10 17:36 | ER ---
Nurse's Notes [facility] Name: Kianna Horton Age: 53 yrs Sex: Female : 1965 Arrival Date: 10/10/2018 Time: 16:35 Bed 11 Private MD: Diagnosis: Pain in right finger(s)-ulceration to distal index finger Presentation: 10/10 16:55 Presenting complaint: Right index finger pain 10/10 after puncture with crab leg 1 hb month ago. Transition of care: patient was not received from another setting of care. Onset of symptoms is unknown. Risk Assessment: Do you want to hurt yourself or someone else? Patient reports no desire to harm self or others. Initial Sepsis Screen: Does the patient meet any 2 criteria? No. Patient's initial sepsis screen is negative. Does the patient have a suspected source of infection? No. Patient's initial sepsis screen is negative. Care prior to arrival: None. 16:55 Method Of Arrival: Ambulatory hb 16:55 Acuity: ANGELICA 4 hb Triage Assessment: 16:57 General: Appears in no apparent distress. Behavior is calm, cooperative. Pain: Pain hb currently is 10 out of 10 on a pain scale. EENT: No signs and/or symptoms were reported regarding the EENT system. Neuro: Level of Consciousness is awake, alert, obeys commands, Oriented to person, place, time, situation. Cardiovascular: Capillary refill < 3 seconds Patient's skin is warm and dry. Respiratory: Airway is patent Respiratory effort is even, unlabored, Respiratory pattern is regular, symmetrical. GI: No signs and/or symptoms were reported involving the gastrointestinal system. : No signs and/or symptoms were reported regarding the genitourinary system. Derm: Skin is intact, is healthy with good turgor, bruising noted to right index finger pad. Musculoskeletal: Reports right finger pain 10/10. 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 - Social history:: Smoking status: Patient/guardian denies using tobacco. - Ebola Screening: : No symptoms or risks identified at this time. Screenin:58 Abuse screen: Denies threats or abuse. Denies injuries from another. Nutritional hb screening: No deficits noted. Tuberculosis screening: No symptoms or risk factors identified. Fall Risk None identified. Assessment: 16:58 General: see triage assessment. hb 17:18 Reassessment: Pt c/o headache 8/10. VAULT PERSON Petra notified, Tylenol administered as hb ordered. Vital Signs: 16:56 BP 139 / 92; Pulse 88; Resp 16; Temp 98.1; Pulse Ox 100% ; Pain 10/10; hb ED Course: 16:35 Patient arrived in ED. as 16:55 Petra Faye FNP-C is [facility]. kb 16:55 Momo Up MD is Attending Physician. kb 16:56 Triage completed. hb 16:56 Arm band placed on. hb 16:58 Patient has correct armband on for positive identification. Bed in low position. Call hb light in reach. 17:08 Cindy Bean, RN is Primary Nurse. hb Administered Medications: 17:08 Drug: Lidocaine (1 %) 1 vials {Note: administered by FELIPE Lambert.} Volume: 5 ml; Route: hb Infiltration; 17:09 Drug: Marcaine (0.5 %) 1 vials {Note: administered by FELIPE Lambert.} Volume: 10 ml; hb Route: Infiltration; 17:17 Drug: Tylenol 1000 mg Route: PO; hb Outcome: 17:35 Discharge ordered by . kb 18:03 Patient left the ED. hb Signatures: Petra Faye FNP-C FNP-Ckb Martinez, Amelia as Cindy Bean, RN RN hb
--- NOTE | 2018-10-10 17:36 | EDPHYS ---
Physician Documentation [facility] Name: Kianna Horton Age: 53 yrs Sex: Female : 1965 Arrival Date: 10/10/2018 Time: 16:35 Bed 11 Private MD: ED Physician Momo Up HPI: 10/10 17:07 This 53 yrs old Female presents to ER via Ambulatory with complaints of Finger kb Problem. 17:09 the patient presents with a swollen area of the palmar aspect of distal phalanx of kb right index finger. Description: erythematous, swollen. Onset: The symptoms/episode began/occurred 2 month(s) ago. Possible cause(s): unknown. Associated signs and symptoms: Pertinent positives: erythema, swelling, Pertinent negatives: discharge, drainage, foreign body sensation, fever, headache, nausea, shortness of breath, vomiting. Modifying factors: the symptoms are alleviated by nothing, the symptoms are aggravated by nothing. Severity of symptoms: At their worst the symptoms were mild, in the emergency department the symptoms are unchanged. The patient has not experienced similar symptoms in the past. The patient has not recently seen a physician. 17:10 Pt reports skin infection to distal right index finger that started 2 months ago. kb States she has had a course of antibiotics and an x-ray, but has had no relief. . PORTFOLIO LEAD: 16:56 LMP N/A - Post-menopause hb Historical: - Allergies: 16:57 No Known Drug Allergies; hb - PMHx: 16:57 Anxiety; Hypertension; ulcerative colitis; hb - PSHx: 16:57 None; hb - Immunization history:: Adult Immunizations up to date. - Social history:: Smoking status: Patient/guardian denies using tobacco. - Ebola Screening: : No symptoms or risks identified at this time. ROS: 17:07 Constitutional: Negative for fever, chills, and weight loss, Cardiovascular: Negative kb for chest pain, palpitations, and edema, Respiratory: Negative for shortness of breath, cough, wheezing, and pleuritic chest pain, Abdomen/GI: Negative for abdominal pain, nausea, vomiting, diarrhea, and constipation, Neuro: Negative for headache, weakness, numbness, tingling, and seizure. 17:07 MS/extremity: Positive for pain, swelling, tenderness, of the palmar aspect of distal phalanx of right index finger, discoloration. Exam: 17:07 Constitutional: This is a well developed, well nourished patient who is awake, alert, kb and in no acute distress. Head/Face: Normocephalic, atraumatic. Chest/axilla: Normal chest wall appearance and motion. Nontender with no deformity. No lesions are appreciated. Cardiovascular: Regular rate and rhythm with a normal S1 and S2. No gallops, murmurs, or rubs. Normal PMI, no JVD. No pulse deficits. Respiratory: Lungs have equal breath sounds bilaterally, clear to auscultation and percussion. No rales, rhonchi or wheezes noted. No increased work of breathing, no retractions or nasal flaring. Abdomen/GI: Soft, non-tender, with normal bowel sounds. No distension or tympany. No guarding or rebound. No evidence of tenderness throughout. MS/ Extremity: Pulses equal, no cyanosis. Neurovascular intact. Full, normal range of motion. Neuro: Awake and alert, GCS 15, oriented to person, place, time, and situation. Cranial nerves II-XII grossly intact. Motor strength 5/5 in all extremities. Sensory grossly intact. Cerebellar exam normal. Normal gait. 17:09 Skin: lesion(s), noted, and can be described as raised, ulcerated, located on the kb palmar aspect of distal phalanx of right index finger. Vital Signs: 16:56 BP 139 / 92; Pulse 88; Resp 16; Temp 98.1; Pulse Ox 100% ; Pain 10/10; hb Procedures: 17:06 Nerve block: (digital) of palmar aspect of proxima; phalanx of right index finger kb Medication: Lidocaine 1% without epinephrine Marcaine 0.5%, Amount: 3 mls were injected, Effect: the patient has resolution of the pain, Set up for procedure. Performed by Petra BUNDY Patient tolerated well. MDM: 16:55 Patient medically screened. kb 17:06 Data reviewed: vital signs, nurses notes. Data interpreted: Pulse oximetry: on room air kb is 100 %. Interpretation: normal. 17:31 Counseling: I had a detailed discussion with the patient and/or guardian regarding: the kb historical points, exam findings, and any diagnostic results supporting the discharge/admit diagnosis, radiology results, the need for outpatient follow up, a sign maintenance, a hand specialist, to return to the emergency department if symptoms worsen or persist or if there are any questions or concerns that arise at home. ED course: x-ray from earlier this week reviewed. Administered Medications: 17:08 Drug: Lidocaine (1 %) 1 vials {Note: administered by FELIPE Lambert.} Volume: 5 ml; Route: hb Infiltration; 17:09 Drug: Marcaine (0.5 %) 1 vials {Note: administered by FELIPE Lambert.} Volume: 10 ml; hb Route: Infiltration; 17:17 Drug: Tylenol 1000 mg Route: PO; hb Disposition: 10/10/18 17:35 Discharged to Home. Impression: Pain in right finger(s) - ulceration to distal index finger. - Condition is Stable. - Discharge Instructions: Excision of Skin Lesions, Skin Biopsy. - Prescriptions for Tramadol 50 mg Oral Tablet - take 1 tablet by ORAL route every 8 hours as needed; 12 tablet. - Medication Reconciliation Form, Thank You Letter, Antibiotic Education, Prescription Opioid Use form. - Follow up: Emergency Department; When: As needed; Reason: Worsening of condition. Follow up: Private Physician; When: 2 - 3 days; Reason: Recheck today's complaints, Continuance of care, Re-evaluation by your physician. Addendum: 10/11/2018 22:27 Co-signature as Attending Physician, Momo Up MD. r n Signatures: Petra Faye, ELECTRONIC EQUIPMENT SET UP OPERATOR-C ELECTRONIC EQUIPMENT SET UP OPERATOR-Ckb Momo Up MD MD rn Baxter, Heather, RN RN Corrections: (The following items were deleted from the chart) 10/10 17:34 17:09 Skin: cellulitis, that is minimal, on the palmar aspect of distal phalanx of kb right index finger, kb 18:03 17:35 10/10/2018 17:35 Discharged to Home. Impression: Pain in right finger(s) - hb ulceration to distal index finger. Condition is Stable. Prescriptions for Tramadol 50 mg Oral Tablet - take 1 tablet by ORAL route every 8 hours as needed; 12 tablet. and Forms are Medication Reconciliation Form, Thank You Letter, Antibiotic Education, Prescription Opioid Use. Follow up: Emergency Department; When: As needed; Reason: Worsening of condition. Follow up: Private Physician; When: 2 - 3 days; Reason: Recheck today's complaints, Continuance of care, Re-evaluation by your physician. kb
== END 2018-10-10 18:03 | disposition home or self-care (01) ==
LOC: ER 16:34
DX: L98.499 Non-pressure chronic ulcer of skin of other sites with unspecified severity (principal); I10 Essential (primary) hypertension; F41.9 Anxiety disorder, unspecified
CPT/HCPCS: 64450; 99282

== ENCOUNTER 2019-11-10 10:20 | Emergency (ER) | payer OTHER ==
[2019-11-10] MEDS ORDERED: DIPHENHYDRAMINE 50 MG/ML VIAL ONE (11:25)
[2019-11-10] MEDS ORDERED: METOCLOPRAMIDE 10 MG/2mL INJ ONE (11:25)
[2019-11-10] MEDS ORDERED: NA CHLORIDE 0.9% 1,000 ML ONE (11:25)
--- NOTE | 2019-11-10 11:39 | RAD REPORT ---
EXAM DESCRIPTION: CT - Head Brain Wo Cont - 11/10/2019 11:29 am CLINICAL HISTORY: HEADACHE Headache, drowsiness COMPARISON: Head Brain Wo Cont dated 09/19/2018; Head Brain Wo Cont dated 05/17/2017 TECHNIQUE: All CT scans are performed using dose optimization technique as appropriate and may inclu de automated exposure control or mA/KV adjustment according to patient size. FINDINGS: No intracranial hemorrhage, hydrocephalus or extra-axial fluid collection.No areas of brai n edema or evidence of midline shift. The paranasal sinuses and mastoids are clear. The calvarium is intact. IMPRESSION: No acute intracranial abnormality.
[2019-11-10 11:53] LABS: Absolute Lymphocytes (CBC) 1.5 K/uL (0.7-4.9); Basophils % 1.2 % (0-1.3); Hematocrit 36.9 % (36.0-45.0); Lymphocytes % 10.7 % (15.3-44.8); MPV 7.9 fL (7.6-11.3); RBC Red Blood Cell Count 4.88 M/uL (3.86-4.86)
[2019-11-10 11:54] LABS: Protime INR 0.92
[2019-11-10 12:09] LABS: ALT/SGPT 24 U/L (12-78); AST/SGOT 17 U/L (15-37); Albumin 3.5 g/dL (3.4-5.0); Alkaline Phosphatase 47 U/L (45-117); BUN Blood Urea Nitrogen 12 mg/dL (7-18); Bicarbonate 28 mmol/L (21-32); Bilirubin Direct < 0.1 mg/dL (0-0.2); Bilirubin Total 0.2 mg/dL (0.2-1.0); Glucose Level 105 mg/dL (74-106); Potassium 3.4 mmol/L (3.5-5.1); Protein, Total 6.6 g/dL (6.4-8.2); Sodium Level 144 mmol/L (136-145)
--- OUTSIDE RECORDS SUMMARY | 2019-11-10 12:30 | XMS REPORT | Continuity of Care Document ---
:1965 Author Organization [facility] t Address [address] [place] [address] Care Team Providers Name Role Phone Osmani Ennis MD Attending Clinician Laron Duff MD Attending Clinician Fritz Rizzo Attending Clinician Donovan Sparks Attending Clinician Raymon THOMAS Admitting Clinician Problems Condition Condition Condition Status Onset Resolution Last Treating Co mments Source Name Details Category Date Date Treatment Clinician Date ABDOMINAL Diagnosis Active 2017-01-02 PAIN 4-29 08:16:00 [place] GENERALIZE 00:00: [place] D-R10.84 / ABDOMINAL 00 ULCE PAIN GENERALIZE D-R10.84 / ULCE Active 10/07/2015 [place] Ulcerative Problem Active 2017-01-07 M H OPID colitis 00:39:08 Christopher (disorder) royce Ulcerative [place] colitis [place] (disorder) Active Problem 01/07/2017 Era Villeda [place] Allergies, Adverse Reactions, Alerts This patient has no known allergies or adverse reactions. Social History Social Habit Start Date Stop Date Quantity Comments Source Social History 2015-08-26 2015-08-26 Zachary nugent 20:16:32 20:16:32 [facility] Medications This patient has no known medications. Vital Signs Vital Name Observation Time Observation Value Comments Source Weight 2015-10-12 19:43:00 [facility] [place] BMI Calculated 2015-10-12 19:43:00 MH [place] Height 2015-10-12 19:43:00 152.4 cm MH [place] Procedures This patient has no known procedures. Encounters Start End Encounter Admission Attending Care Care Encounter Source Date/Time Date/Time Type Type Clinicians Facility Department ID 2019-01-09 2019-01-10 Emergency Gisell Ennis [id number] 19:47:42 13:00:00 Osmani Moe [id number] [facility] [id number] 2019-01-09 2019-01-09 Emergency Omega [facility] [id number] 16:27:15 19:10:00 Laronlibby Harris [id number] [place] [id number] [place] [id number] 2017-01-04 2017-01-05 Outpt Diag MHIEALT [facility] [id number] MH OPID 12:53:00 04:59:00 Services Outpatient 01 [facility] [place] 2017-01-04 2017-01-04 Outpatient Rizzo, MHOIP MHOIP [id number] 07:53:00 23:59:00 Fritz P 01 2016-12-21 2016-12-22 Outpt Diag MHIEALT HS [id number] MH OPID 12:54:00 04:59:00 Services Outpatient 00 [facility] [place] 2016-12-21 2016-12-21 Outpatient Matthias, MHOIP MHOIP [id number] 07:54:00 23:59:00 Fritz P 00 2016-01-19 2016-01-19 Outpatient MHIEALT MHIEALT [id number] [place] 16:00:00 16:00:00 05 donovan Cardenas 2015-11-03 2015-11-03 Outpatient MHIEALT MHIEALT [id number] [place] 13:20:00 13:20:00 04 donovan Cardenas 2015-10-14 2015-10-14 Bedded MHIEALT [facility] [id number] MH 13:49:00 16:30:00 Outpatient Ronald 02 Sug [place] 2015-10-14 2015-10-14 Outpatient BridgerSAMAN S [id number] 08:49:00 11:30:00 Silvino Craven 2015-09-29 2015-09-29 Outpatient MHIEALT MHIEALT [id number] [place] 13:40:00 13:40:00 02 donovan Cardenas 2015-09-08 2015-09-08 Outpatient MHIEALT MHIEALT [id number] [place] 14:20:00 14:20:00 01 donovan Cardenas Results This patient has no known results.
--- OUTSIDE RECORDS SUMMARY | 2019-11-10 12:30 | XMS REPORT | Continuity of Care Document ---
:1965 Author Organization [employer] Care Team Providers Name Role Phone [employer] Unavailable Un available Problems Problem Status Onset Classification Date Comments Sourc e Date Reported ABDOMINAL PAIN Active [place] gar GENERALIZED-R1 6 [place] 0.84 / ULCE Ulcerative Active Problem 01/07/2017 OP[facility] colitis [place],M (disorder) H [place] Medications No Data Provided for This Section Allergies, Adverse Reactions, Alerts No Known Medication Allergies Immunizations No Data Provided for This Section Results No Data Provided for This Section Pathology Reports No Data Provided for This Section Diagnostic Reports Report Value Date Source Abdomen complete US Study: Abdomen complete US 01/04/2017 M H RUFINO [place] Clinical Indication: R74.0 Nonspecific elevation of levels of transaminase and lactic acid dehydrogenase [LDH] - R74.0 Nonspecific elevation of levels of transaminase and lactic acid dehydrogenase [LDH] Comparison: MRI of the abdomen from 12/21/2016. TECHNIQUE: Grayscale and limited color sonographic evaluation of the abdomen was performed with standard technique. FINDINGS: The liver is echog enic measuring 17.1 cm.The visualized portions of the pancreas are unremarkable. The visualized portions of the abdominal aorta and IVC are unremarkable. The gallbladder is mildly contracted. 4 mm tata yp in the gallbladder lumen is seen. No pericholecystic fluid is present. No echogenic shadowing gallstone or gallbladder sludge is present. There is no biliary duct dilatation. Common bile duct measures 4 mm. The bilateral kidneys are no rmal in size and echotexture without stones or hydronephrosis. The right kidney measures 10.8 x 3.5 x 5 cm. The left kidney measures 10.9 x 5 x 5.3 cm. The spleen is normal in size and echotexture yadi suring 7.1 cm. The main portal vein is garnados nt and with hepatopedal flow. The right, middle, and left hepatic veins are patent with hepatofugal flow. Hepatic artery is patent. No free fluid is noted. IMPRESSION: 1. Hepatomegaly with increas ed echotexture of the liver, compatible with fatty infiltration or fibrosis. 2. 4 mm gallbladder polyp. SL: [id number] Abdomen wo contrast 12/21/2016 [facility] [place] MRI EXAM: Abdomen wo contrast MRI INDICATION: R10.13 Epigastric pain - R10.13 Epigastric pain COMPARISON: CT abdomen and pelvis from 9 TECHNIQUE: Multiplanar, mult isequence magnetic resonance imaging of the abdomen was performed without the administration of intravenous gadolinium contrast. MRCP protocol was utilized. FINDINGS: Hepatomegaly is no jesusita. No filling defect is noted throughout the gallbladder to suggest stone. No intrahepatic or extra hepatic biliary duct dilatation is seen. Common bile duct measures 3 mm in diameter. No filling defe ct in the common bile duct to suggest stone is seen. No pancreatic ductal dilatation is noted. Pancreas, spleen, adrenal gl ands, and kidneys are normal in appearance. No pathologic adenopathy or ascites is seen. IMPRESSION: 1. No intrahepatic or extrah epatic biliary duct dilatation and no evidence of choledocholithiasis. 2. No cholelithiasis. 3. Hepatomegaly. SL: [id number] Consultation Notes No Data Provided for This Section Discharge Summaries No Data Provided for This Section History and Physicals No Data Provided for This Section Vital Signs Vital Sign Value Date Comments Source Weight 46.818 10/12/2015 [facility] BMI Calculated 20.16 10/12/2015 [facility] Height 152.4 cm 10/12/2015 [place] Encounters Location Location Encounter Encounter Reason Attending ADM ID Stat Source Details Type Number For Provider Date Date Visit Outpatient [id number] SILVINO 09/07 [facility] [place] Outpatient [id number] SILVINO 09/28 [facility] Bedded [id number] Silvino 10/13 10/13 [place] [facility] Garcia Chivo d [place] Outpatient [id number] SILVINO 11/02 [facility] Outpatient [id number] SILVINO 01/18 [facility] Outpt Diag [id number] Fritz 12/21 12/22 [facility] [place] [facility] Outpt Diag [id number] Fritz 01/04 01/05 [facility] [place] [facility] [place] Procedures No Data Provided for This Section Assessment and Plan No Data Provided for This Section Plan of Care No Data Provided for This Section Social History Social History Date Source Social History TypeResponse 08/26/2015 [facility] [place] Substance Abuse Use: Past. Type: Marijuana.1 Exercise 2 Employment/School Status: Employed. Alcohol Current, Type Beer. Smoking Status Current every day smoker; Type: Cigarett es; Exposed at work; Lives with someone who smokes; Cigarette Smoking Last 365 Days Yes; Reg Smoking Cessation Counseling No 1PATIENT STATES " YOU NAME IT I TRIED IT. MOSTLY MARIJUANA A ND COCAINE."2no Social History TypeResponse 08/26/2015 [place] Substance Abuse Use: Past. Type: Marijuana.1 Exercise 2 Employment/School Status: Employed. Alcohol Current, Type Beer. Smoking Status Current every day smoker; Type: Cigarett es; Exposed at work; Lives with someone who smokes; Cigarette Smoking Last 365 Days Yes; Reg Smoking Cessation Counseling No 1PATIENT STATES " YOU NAME IT I TRIED IT. MOSTLY MARIJUANA A ND COCAINE."2no Family History No Data Provided for This Section Advance Directives No Data Provided for This Section Functional Status No Data Provided for This Section
--- NOTE | 2019-11-10 13:44 | ER ---
Nurse's Notes [facility] Name: Kianna Horton Age: 54 yrs Sex: Female : 1965 Arrival Date: 11/10/2019 Time: 10:25 Bed 6 Private MD: Diagnosis: Vertigo;Headache Presentation: 11/09 10:54 Chief complaint: Patient states: Headache, blurred vision and dizziness that started ph Saturday, also reports sensitivity to sound, denies hx of migraines. Coronavirus screen: Patient denies a cough. Patient denies shortness of breath or difficulty breathing. Patient denies measured and/or subjective temperature greater than 100.4F prior to today's visit. Patient denies travel on a cruise ship or to a country the [facility] currently lists as an affected area. Patient denies contact with known and/or suspected case of COVID-19. Ebola Screen: No symptoms or risks identified at this time. Initial Sepsis Screen: Does the patient meet any 2 criteria? No. Patient's initial sepsis screen is negative. Does the patient have a suspected source of infection? No. Patient's initial sepsis screen is negative. Risk Assessment: Do you want to hurt yourself or someone else? Patient reports no desire to harm self or others. Onset of symptoms was November 10, 2019. 10:54 Method Of Arrival: Ambulatory ph 10:54 Acuity: ANGELICA 3 ph Triage Assessment: 11:05 Pain: Pain began 2-3 days ago. Also complains of dizziness, blurred vision, headache. tw2 WOOD TURNER: 11:04 LMP N/A - tw2 Historical: - Allergies: 10:56 No Known Drug Allergies; ph - PMHx: 10:56 Anxiety; Hypertension; ulcerative colitis; ph - Immunization history:: Adult Immunizations. - Social history:: Smoking status: . Screenin:03 Abuse screen: Denies threats or abuse. Nutritional screening: No deficits noted. tw2 Tuberculosis screening: No symptoms or risk factors identified. Fall Risk None identified. Assessment: 11:00 General: Appears in no apparent distress. slender, well groomed, Behavior is tw2 cooperative, appropriate for age, talkative. Pain: Complains of pain in headache. Neuro: Level of Consciousness is awake, alert, obeys commands, Oriented to person, place, time, situation. Neuro: Reports dizziness, headache. Cardiovascular: Heart tones S1 S2 Patient's skin is warm and dry. Respiratory: Airway is patent Respiratory effort is even, unlabored, Respiratory pattern is regular, agonal Breath sounds are clear bilaterally. GI: No signs and/or symptoms were reported involving the gastrointestinal system. Abdomen is flat. : No signs and/or symptoms were reported regarding the genitourinary system. EENT: No signs and/or symptoms were reported regarding the EENT system. Derm: No signs and/or symptoms reported regarding the dermatologic system. Musculoskeletal: Range of motion: intact in all extremities. 11:50 Reassessment: Patient appears in no apparent distress at this time. No changes from tw2 previously documented assessment. Patient and/or family updated on plan of care and expected duration. Pain level reassessed. Patient is alert, oriented x 3, equal unlabored respirations, skin warm/dry/pink. 13:00 Reassessment: Patient appears in no apparent distress at this time. No changes from tw2 previously documented assessment. Patient and/or family updated on plan of care and expected duration. Pain level reassessed. Patient is alert, oriented x 3, equal unlabored respirations, skin warm/dry/pink. 14:16 Reassessment: Patient appears in no apparent distress at this time. No changes from tw2 previously documented assessment. Patient and/or family updated on plan of care and expected duration. Pain level reassessed. Patient is alert, oriented x 3, equal unlabored respirations, skin warm/dry/pink. Patient states feeling better. Patient states symptoms have improved. Vital Signs: 10:54 BP 137 / 100; Pulse 106; Resp 18; Temp 98.0; Pulse Ox 100% on R/A; Weight 50.8 kg; ph Height 5 ft. 0 in. (152.40 cm); Pain 8/10; 11:57 BP 153 / 94; Pulse 87; Resp 14; Pulse Ox 99% ; sv 12:32 BP 126 / 82; Pulse 85; Resp 13; Pulse Ox 96% ; sv 13:35 BP 131 / 93; Pulse 79; Resp 12; Pulse Ox 98% ; sv 14:10 BP 126 / 88; Pulse 76; Resp 16; Pulse Ox 100% on R/A; tw2 10:54 Body Mass Index 21.87 (50.80 kg, 152.40 cm) ph ED Course: 10:25 Patient arrived in ED. mr 10:55 Geoff Boucher MD is Attending Physician. [facility] 10:56 Triage completed. 11:02 Aidee Peterson RN is Primary Nurse. tw2 11:04 Bed in low position. Call light in reach. retail sales assistant on. Pulse ox on. NIBP on. tw2 11:04 Arm band placed on. tw2 11:28 CT Head Brain wo Cont In Process Unspecified. EDMS 11:40 Patient has correct armband on for positive identification. sv 11:40 Inserted saline lock: 20 gauge in left antecubital area, using aseptic technique. sv ,using aseptic technique. done by Aidee PENG Blood collected. 13:42 Marge Eddy MD is Referral Physician. [facility] 14:15 No provider procedures requiring assistance completed. IV discontinued, intact, tw2 bleeding controlled, No redness/swelling at site. Pressure dressing applied. Administered Medications: 11:47 Drug: NS 0.9% 1000 ml Route: IV; Rate: 1000 ml; Site: left antecubital; tw2 14:15 Follow up: Response: No adverse reaction; IV Status: Completed infusion; IV Intake: tw2 1000ml 11:47 Drug: Benadryl 50 mg Route: IVP; Site: left antecubital; tw2 14:15 Follow up: Response: No adverse reaction tw2 11:50 Drug: Reglan 10 mg Route: IVP; Site: left antecubital; tw2 14:10 Follow up: Response: No adverse reaction tw2 Intake: 14:15 IV: 1000ml; Total: 1000ml. tw2 Outcome: 13:42 Discharge ordered by . 7 14:15 Patient left the ED. tw2 14:15 Discharged to home ambulatory. tw2 14:15 Condition: stable 14:15 Discharge instructions given to patient, Instructed on discharge instructions, follow up and referral plans. medication usage, Demonstrated understanding of instructions, follow-up care, medications, Prescriptions given X 1. Signatures: Dispatcher [employer] Marge Camilo, DANISH PENG Giana HargroveChandni RN RN Aidee Peterson, DANISH RN 2 Geoff Boucher MD MD [facility] Corrections: (The following items were deleted from the chart) 14:19 14:16 Reassessment: Patient appears in no apparent distress at this time. No changes tw2 from previously documented assessment. Patient and/or family updated on plan of care and expected duration. Pain level reassessed. Patient is alert, oriented x 3, equal unlabored respirations, skin warm/dry/pink. tw2
--- NOTE | 2019-11-10 13:44 | EDPHYS ---
Physician Documentation [facility] Name: Kianna Horton Age: 54 yrs Sex: Female : 1965 Arrival Date: 11/10/2019 Time: 10:25 Bed 6 Private MD: ED Physician Geoff Boucher HPI: 11/09 12:07 This 54 yrs old Female presents to ER via Ambulatory with complaints of mh7 Dizziness, Headache, Blurred Vision. 12:07 The patient presents with dizziness, sense of spinning. Onset: The symptoms/episode mh7 began/occurred 3 day(s) ago. Context: occurred at work, occurred while the patient was working, just prior to the episode the patient experienced no apparent symptoms. Modifying factors: The symptoms are alleviated by holding head still, the symptoms are aggravated by movement of head, changing position. Associated signs and symptoms: Pertinent positives: blurred vision, headache, Pertinent negatives: abdominal pain, agitation, ataxia, chest pain, combativeness, confusion, diaphoresis, focal weakness, head injury, nausea, near-syncope, numbness, palpitations, , seizure, shortness of breath, syncope, tingling, vomiting. Severity of symptoms: At their worst the symptoms were moderate yesterday, in the emergency department the symptoms have improved moderately. The patient has been recently seen at an urgent care, two days ago. 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 - Social history:: Smoking status: . ROS: 12:07 Constitutional: Negative for fever, chills, and weight loss. mh7 12:07 ENT: Negative for injury, pain, and discharge, Neck: Negative for injury, pain, and swelling, Cardiovascular: Negative for chest pain, palpitations, and edema, Respiratory: Negative for shortness of breath, cough, wheezing, and pleuritic chest pain, Abdomen/GI: Negative for abdominal pain, nausea, vomiting, diarrhea, and constipation, Back: Negative for injury and pain, : Negative for injury, bleeding, discharge, and swelling, MS/Extremity: Negative for injury and deformity, Skin: Negative for injury, rash, and discoloration, Psych: Negative for depression, anxiety, suicide ideation, homicidal ideation, and hallucinations, Allergy/Immunology: Negative for hives, rash, and allergies, Endocrine: Negative for neck swelling, polydipsia, polyuria, polyphagia, and marked weight changes, Hematologic/Lymphatic: Negative for swollen nodes, abnormal bleeding, and unusual bruising. 12:07 Eyes: Positive for itching, matting. Exam: 12:07 Constitutional: This is a well developed, well nourished patient who is awake, alert, mh7 and in no acute distress. Head/Face: Normocephalic, atraumatic. Eyes: Pupils equal round and reactive to light, extra-ocular motions intact. Lids and lashes normal. Conjunctiva and sclera are non-icteric and not injected. Cornea within normal limits. Periorbital areas with no swelling, redness, or edema. ENT: Nares patent. No nasal discharge, no septal abnormalities noted. Tympanic membranes are normal and external auditory canals are clear. Oropharynx with no redness, swelling, or masses, exudates, or evidence of obstruction, uvula midline. Mucous membranes moist. Neck: Trachea midline, no thyromegaly or masses palpated, and no cervical lymphadenopathy. Supple, full range of motion without nuchal rigidity, or vertebral point tenderness. No Meningismus. Chest/axilla: Normal chest wall appearance and motion. Nontender with no deformity. No lesions are appreciated. Cardiovascular: Regular rate and rhythm with a normal S1 and S2. No gallops, murmurs, or rubs. Normal PMI, no JVD. No pulse deficits. Respiratory: Lungs have equal breath sounds bilaterally, clear to auscultation and percussion. No rales, rhonchi or wheezes noted. No increased work of breathing, no retractions or nasal flaring. Abdomen/GI: Soft, non-tender, with normal bowel sounds. No distension or tympany. No guarding or rebound. No evidence of tenderness throughout. Back: No spinal tenderness. No costovertebral tenderness. Full range of motion. Skin: Warm, dry with normal turgor. Normal color with no rashes, no lesions, and no evidence of cellulitis. MS/ Extremity: Pulses equal, no cyanosis. Neurovascular intact. Full, normal range of motion. Neuro: Awake and alert, GCS 15, oriented to person, place, time, and situation. Cranial nerves II-XII grossly intact. Motor strength 5/5 in all extremities. Sensory grossly intact. Cerebellar exam normal. Normal gait. Psych: Awake, alert, with orientation to person, place and time. Behavior, mood, and affect are within normal limits. Vital Signs: 10:54 BP 137 / 100; Pulse 106; Resp 18; Temp 98.0; Pulse Ox 100% on R/A; Weight 50.8 kg; ph Height 5 ft. 0 in. (152.40 cm); Pain 8/10; 11:57 BP 153 / 94; Pulse 87; Resp 14; Pulse Ox 99% ; sv 12:32 BP 126 / 82; Pulse 85; Resp 13; Pulse Ox 96% ; sv 13:35 BP 131 / 93; Pulse 79; Resp 12; Pulse Ox 98% ; sv 14:10 BP 126 / 88; Pulse 76; Resp 16; Pulse Ox 100% on R/A; tw2 10:54 Body Mass Index 21.87 (50.80 kg, 152.40 cm) ph MDM: 11:15 Patient medically screened. 7 13:39 Differential diagnosis: idiopathic dizziness. mh7 13:39 Differential diagnosis: head injury, hypovolemia, vertigo, non specific headache, mh7 migraine, cluster headache. Data reviewed: vital signs, nurses notes, old medical records, lab test result(s), CBC, electrolytes, urinalysis, radiologic studies, CT scan. Data interpreted: secured entrance monitor: rate is 79 beats/min, rhythm is normal sinus rhythm, regular, Interpretation: normal rate, normal rhythm, Pulse oximetry: on room air is 98 %. Interpretation: normal. Counseling: I had a detailed discussion with the patient and/or guardian regarding: the historical points, exam findings, and any diagnostic results supporting the discharge/admit diagnosis, the presence of at least one elevated blood pressure reading (>120/80) during this emergency department visit, lab results, radiology results, the need for outpatient follow up, to return to the emergency department if symptoms worsen or persist or if there are any questions or concerns that arise at home. Response to treatment: the patient's symptoms have resolved after treatment, the patient's blood pressure is in an acceptable range, mental status has returned to baseline, the patient no longer shows bradycardia, the patient is not short of breath, the patient is not tachycardic, the patient's pain is gone, the patient's temperature has normalized. 11/09 11:17 Order name: CBC with Diff; Complete Time: 12:03 7 11/09 11:17 Order name: Basic Metabolic Panel; Complete Time: 12:45 7 11/09 11:17 Order name: LFT's; Complete Time: 12:45 7 11/09 11:17 Order name: Protime (+inr); Complete Time: 12:03 7 11/09 11:17 Order name: CT Head Brain wo Cont; Complete Time: 12:03 7 11/09 11:17 Order name: Saline Lock; Complete Time: 11:46 mh7 Administered Medications: 11:47 Drug: NS 0.9% 1000 ml Route: IV; Rate: 1000 ml; Site: left antecubital; tw2 14:15 Follow up: Response: No adverse reaction; IV Status: Completed infusion; IV Intake: tw2 1000ml 11:47 Drug: Benadryl 50 mg Route: IVP; Site: left antecubital; tw2 14:15 Follow up: Response: No adverse reaction tw2 11:50 Drug: Reglan 10 mg Route: IVP; Site: left antecubital; tw2 14:10 Follow up: Response: No adverse reaction 2 Disposition: 11/10/19 13:42 Discharged to Home. Impression: Vertigo, Headache. - Condition is Stable. - Discharge Instructions: Vertigo, [id number], General Headache Without Cause, [id number]. - Prescriptions for Meclizine 25 mg Oral Tablet - take 1 tablet by ORAL route every 8 hours As needed; 21 tablet. - Work release form, Medication Reconciliation Form, Thank You Letter, Antibiotic Education, Prescription Opioid Use form. - Follow up: Private Physician; When: 1 - 2 days; Reason: Worsening of condition, Re-evaluation by your physician. Follow up: Marge Eddy MD; When: 1 - 2 days; Reason: Worsening of condition, Recheck today's complaints. - Problem is new. - Symptoms are resolved. Signatures: Dispatcher [employer] Chandni Portillo RN RN [facility] RN 2 Geoff Boucher MD MD 7 Corrections: (The following items were deleted from the chart) 14:15 13:42 11/10/2019 13:42 Discharged to Home. Impression: Vertigo; Headache. Condition is tw2 Stable. Forms are Work release form, Medication Reconciliation Form, Thank You Letter, Antibiotic Education, Prescription Opioid Use. Follow up: Private Physician; When: 1 - 2 days; Reason: Worsening of condition, Re-evaluation by your physician. Follow up: Marge Eddy; When: 1 - 2 days; Reason: Worsening of condition, Recheck today's complaints. Problem is new. Symptoms are resolved. mh7
[2019-11-10 14:35] VITALS: TEMP 98
[2019-11-10 14:38] VITALS: BP 131/93; O2SAT 98
== END 2019-11-10 14:15 | disposition home or self-care (01) ==
LOC: ER 10:20
DX: R42 Dizziness and giddiness (principal); R51 Headache
CPT/HCPCS: 96361; 85025; 80048; 36415; 85610; 80076; 70450; 96375; 96374; 99284; J2765; J1200; J7030

== ENCOUNTER 2020-03-25 09:33 | Emergency (ER) | payer OTHER ==
[2020-03-25 10:24] LABS: Absolute Lymphocytes (CBC) 0.9 K/uL (0.7-4.9); Basophils % 0.8 % (0-1.3); Lymphocytes % 13.6 % (15.3-44.8); MPV 8.2 fL (7.6-11.3); RBC Red Blood Cell Count 4.92 M/uL (3.86-4.86)
[2020-03-25] MEDS ORDERED: dexAMETHasone 10 MG/ML VIAL ONE (10:32)
[2020-03-25] MEDS ORDERED: NA CHLORIDE 0.9% 1,000 ML ONE (10:33)
[2020-03-25 10:39] LABS: ALT/SGPT 23 U/L (12-78); AST/SGOT 12 U/L (15-37); Albumin 3.5 g/dL (3.4-5.0); Alkaline Phosphatase 60 U/L (45-117); BUN Blood Urea Nitrogen 16 mg/dL (7-18); Bicarbonate 31 mmol/L (21-32); Bilirubin Direct < 0.1 mg/dL (0-0.2); Bilirubin Total 0.2 mg/dL (0.2-1.0); Glucose Level 114 mg/dL (74-106); Lipase 115 U/L (73-393); Protein, Total 7.3 g/dL (6.4-8.2); Sodium Level 140 mmol/L (136-145)
--- OUTSIDE RECORDS SUMMARY | 2020-03-25 10:46 | XMS REPORT | Continuity of Care Document ---
:1965 Author Organization [employer] Care Team Providers Name Role Phone [employer] Unavailable Un available Problems Problem Status Onset Classification Date Comments Sourc e Date Reported ABDOMINAL PAIN Active Ferguson gar GENERALIZED-R1 6 [place] 0.84 / ULCE Ulcerative Active Problem 01/07/2017 [facility] colitis [place],M (disorder) [facility] [place] Medications No Data Provided for This Section [...] 7.1 cm. The main portal vein is granados nt and with hepatopedal flow. The right, middle, and left hepatic veins are patent with hepatofugal flow. Hepatic artery is patent. No free fluid is noted. IMPRESSION: 1. Hepatomegaly with increas ed echotexture of the liver, compatible with fatty infiltration or fibrosis. 2. 4 mm gallbladder polyp. SL: [id number] Abdomen wo contrast 12/21/2016 [facility] [place] [...] choledocholithiasis. 2. No cholelithiasis. 3. Hepatomegaly. SL: [id number] Consultation Notes No Data Provided for This Section Discharge Summaries No Data Provided for This Section History and Physicals No Data Provided for This Section Vital Signs Vital Sign Value Date Comments Source Weight 46.818 10/12/2015 [facility] BMI Calculated 20.16 10/12/2015 [facility] Height 152.4 cm 10/12/2015 [place] Encounters Location Location Encounter Encounter Reason Attending ADM HI Stat Source Details Type Number For Provider Date Date Visit Outpatient [id number] SILVINO 09/07 [facility] [id number] SILVINO 09/28 [facility] Bedded [id number] Silvino 10/13 10/13 [facility] Garcia Chivo d [place] Out[facility] [id number] SILVINO 11/02 [facility] Outpatient [id number] SILVINO 01/18 [facility] Outpt Diag [id number] Fritz 12/21 12/22 [facility] Outpt Diag [id number] Fritz 01/04 01/05 [facility] [place] [facility] [place] Procedures No Data Provided for This Section [...]
--- OUTSIDE RECORDS SUMMARY | 2020-03-25 10:47 | XMS REPORT | Continuity of Care Document ---
:1965 Author Organization [facility] t Address [address] [place] [address] Care Team Providers Name Role Phone Osmani Ennis MD Attending Clinician Laron Duff MD Attending Clinician Fritz Rizzo Attending Clinician Caterina Sparks Attending Clinician Raymon THOMAS Admitting Clinician Problems Condition Condition Condition Status Onset Resolution Last Treating Co mments Source Name Details Category Date Date Treatment Clinician Date ABDOMINAL Diagnosis Active 2017-01-02 Memoria PAIN 4-29 08:16:00 l GENERALIZE 00:00: Aly n D-R10.84 / ABDOMINAL 00 ULCE PAIN GENERALIZE D-R10.84 / ULCE Active 10/07/2015 [place] Ulcerative Problem Active 2017-01-07 M emoria colitis 00:39:08 l (disorder) Aly humphreys Ulcerative colitis (disorder) Active Problem 01/07/2017 Era Villeda [place] Allergies, Adverse Reactions, Alerts This patient has no known allergies or adverse reactions. Social History Social Habit Start Date Stop Date Quantity Comments Source Social History 2015-08-26 2015-08-26 Zachary nugent 20:16:32 20:16:32 Medications This patient has no known medications. Vital Signs Vital Name Observation Time Observation Value Comments Source Weight 2015-10-12 19:43:00 [facility] BMI Calculated 2015-10-12 19:43:00 Christine Ireland Height 2015-10-12 19:43:00 152.4 cm [facility] Procedures This patient has no known procedures. Encounters Start End Encounter Admission Attending Care Care Encounter Source Date/Time Date/Time Type Type Clinicians Facility Department ID 2019-01-09 2019-01-10 Emergency Gisell Ennis [id number] 19:47:42 13:00:00 Osmani Kurtzy [id number] [facility] [id number] 2019-01-09 2019-01-09 Emergency [facility] [id number] 16:27:15 19:10:00 Laron Harris [id number] [place] [id number] [place] [id number] 2017-01-04 2017-01-04 Outpatient JEANNE Rizzo OIP [id number] 07:53:00 23:59:00 Fritz P 01 2016-12-21 2016-12-21 Outpatient JEANNE RizzoOIP [id number] 07:54:00 23:59:00 Fritz P 00 2015-10-14 2015-10-14 [place] [id number] 08:49:00 11:30:00 Silvino Diggs 02 Results This patient has no known results.
--- NOTE | 2020-03-25 10:49 | EDPHYS ---
Physician Documentation [facility] Name: Kianna Horton Age: 54 yrs Sex: Female : 1965 Arrival Date: 03/25/2020 Time: 09:34 Bed 15 Private MD: Alicia Nunn H ED Physician Bradley Herzog HPI: 03/25 10:02 This 54 yrs old Female presents to ER via Ambulatory with complaints of kb Ulcerative Colitis Flare Up. 10:02 The patient presents with abdominal pain that is diffuse. Onset: The symptoms/episode kb began/occurred 2 day(s) ago. The symptoms do not radiate. Associated signs and symptoms: Pertinent positives: diarrhea. The symptoms are described as constant. Modifying factors: The symptoms are alleviated by nothing, the symptoms are aggravated by nothing. Severity of pain: At its worst the pain was moderate in the emergency department the pain is unchanged. The patient has experienced similar episodes in the past, chronically. The patient has not recently seen a physician. Pt reports she is having a UC flare that started 2 days ago. "My doctor is closed and urgent care won't prescribe what I need so I came in here." Pt states these symptoms are exactly the same as previous flares. States she takes prednisone 10mg daily, but when she has a flare-up she needs 40mg for 4 days or 20mg for a week to put her back into remission.. 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 - Social history:: Smoking status: Patient reports the use of cigarette tobacco products, smokes one-half pack cigarettes per day. ROS: 10:12 Constitutional: Negative for fever, chills, and weight loss, Cardiovascular: Negative kb for chest pain, palpitations, and edema, Respiratory: Negative for shortness of breath, cough, wheezing, and pleuritic chest pain, Back: Negative for injury and pain, MS/Extremity: Negative for injury and deformity, Skin: Negative for injury, rash, and discoloration, Neuro: Negative for headache, weakness, numbness, tingling, and seizure. 10:12 Abdomen/GI: Positive for abdominal pain, diarrhea, Negative for nausea and vomiting. Exam: 10:12 Constitutional: This is a well developed, well nourished patient who is awake, alert, kb and in no acute distress. Head/Face: Normocephalic, atraumatic. Chest/axilla: Normal chest wall appearance and motion. Nontender with no deformity. No lesions are appreciated. Cardiovascular: Regular rate and rhythm with a normal S1 and S2. No gallops, murmurs, or rubs. Normal PMI, no JVD. No pulse deficits. Respiratory: Lungs have equal breath sounds bilaterally, clear to auscultation and percussion. No rales, rhonchi or wheezes noted. No increased work of breathing, no retractions or nasal flaring. Back: No spinal tenderness. No costovertebral tenderness. Full range of motion. Skin: Warm, dry with normal turgor. Normal color with no rashes, no lesions, and no evidence of cellulitis. MS/ Extremity: Pulses equal, no cyanosis. Neurovascular intact. Full, normal range of motion. Neuro: Awake and alert, GCS 15, oriented to person, place, time, and situation. Cranial nerves II-XII grossly intact. Motor strength 5/5 in all extremities. Sensory grossly intact. Cerebellar exam normal. Normal gait. 10:12 Abdomen/GI: Inspection: abdomen appears normal, Bowel sounds: normal, in all quadrants, Palpation: soft, in all quadrants, mild abdominal tenderness, in all quadrants. Vital Signs: 09:55 BP 134 / 80; Pulse 99; Resp 16; Temp 98.3; Pulse Ox 100% on R/A; Weight 51.71 kg; iw Height 5 ft. (152.40 cm); Pain 4/10; 09:55 Body Mass Index 22.26 (51.71 kg, 152.40 cm) iw MDM: 09:52 Patient medically screened. kb 10:12 Data reviewed: vital signs, nurses notes. Data interpreted: Pulse oximetry: on room air kb is 100 %. Interpretation: normal. 10:48 Counseling: I had a detailed discussion with the patient and/or guardian regarding: the kb historical points, exam findings, and any diagnostic results supporting the discharge/admit diagnosis, lab results, the need for outpatient follow up, a family practitioner, to return to the emergency department if symptoms worsen or persist or if there are any questions or concerns that arise at home. 03/25 09:57 Order name: Basic Metabolic Panel; Complete Time: 10:42 kb 03/25 09:57 Order name: CBC with Diff; Complete Time: 10:27 kb 03/25 09:57 Order name: Hepatic Function; Complete Time: 10:42 kb 03/25 09:57 Order name: Lipase; Complete Time: 10:42 kb 03/2557 Order name: IV Saline Lock; Complete Time: 10:15 kb 03/2557 Order name: Labs collected and sent; Complete Time: 10:15 kb Administered Medications: 10:33 Drug: Decadron - Dexamethasone 10 mg Route: IVP; Site: left antecubital; iw 11:00 Follow up: Response: No adverse reaction iw 10:34 Drug: NS 0.9% 1000 ml Route: IV; Rate: 1000 ml; Site: left antecubital; iw 11:30 Follow up: IV Status: Completed infusion iw Disposition: 03/25/20 10:49 Discharged to Home. Impression: Ulcerative colitis. - Condition is Stable. - Discharge Instructions: Ulcerative Colitis, Adult. - Prescriptions for Prednisone 20 mg Oral Tablet - take 2 tablet by ORAL route once daily for 5 days; 10 tablet. - Work release form, Medication Reconciliation Form, Thank You Letter, Antibiotic Education, Prescription Opioid Use form. - Follow up: Emergency Department; When: As needed; Reason: Worsening of condition. Follow up: Private Physician; When: 2 - 3 days; Reason: Recheck today's complaints, Continuance of care, Re-evaluation by your physician. Addendum: 03/26/2020 13:13 Co-signature as Attending Physician, Bradley Herzog MD I agree with the assessment and k dr plan of care. Signatures: Dispatcher [employer] EDPetra Mansfield, STREET LIGHT REPAIRER-C AILEEN-Braldey Jacinto MD MD kdr Williams, Irene, RN RN iw Corrections: (The following items were deleted from the chart) 03/25 10: 10:02 Pt reports she is having a UC flare that started 2 days ago. "My doctor is closed kb and urgent care won't prescribe what I need so I came in here.". kb 10: 10:02 Pt reports she is having a UC flare that started 2 days ago. "My doctor is closed kb and urgent care won't prescribe what I need so I came in here." Pt states these symptoms are exactly the same as previous flares. States she takes prednisone 10mg daily, but when she has a flare-up she needs 40mg for 4 days or 20mg for a week. . kb 11:00 10:49 03/25/2020 10:49 Discharged to Home. Impression: Ulcerative colitis. Condition is iw Stable. Forms are Medication Reconciliation Form, Thank You Letter, Antibiotic Education, Prescription Opioid Use. Follow up: Emergency Department; When: As needed; Reason: Worsening of condition. Follow up: Private Physician; When: 2 - 3 days; Reason: Recheck today's complaints, Continuance of care, Re-evaluation by your physician. kb
--- NOTE | 2020-03-25 10:49 | ER ---
Nurse's Notes [facility] Name: Kianna Horton Age: 54 yrs Sex: Female : 1965 Arrival Date: 03/25/2020 Time: 09:34 Bed 15 Private MD: Alicia Nunn H Diagnosis: Ulcerative colitis Presentation: 03/25 09:55 Chief complaint: Patient states: beginning of UC flare up started 2 days ago, takes iw prednisone daily. Coronavirus screen: At this time, the client does not indicate any symptoms associated with coronavirus-19. Ebola Screen: Patient negative for fever greater than or equal to 101.5 degrees Fahrenheit, and additional compatible Ebola Virus Disease symptoms Patient denies exposure to infectious person. Patient denies travel to an Ebola-affected area in the 21 days before illness onset. No symptoms or risks identified at this time. Initial Sepsis Screen: Does the patient meet any 2 criteria? No. Patient's initial sepsis screen is negative. Does the patient have a suspected source of infection? No. Patient's initial sepsis screen is negative. Risk Assessment: Do you want to hurt yourself or someone else? Patient reports no desire to harm self or others. Onset of symptoms was March 23, 2020. 09:55 Method Of Arrival: Ambulatory iw 09:55 Acuity: ANGELICA 3 iw INFORMATION MANAGEMENT SPECIALIST: 11:00 LMP N/A - iw Historical: - Allergies: 10:04 No Known Allergies; iw - Home Meds: 10:04 hydrocodone-acetaminophen 7.5-325 mg Oral tab twice a day [Active]; Adderall XR Oral iw once daily [Active]; losartan 50 mg oral tab 1 tab once daily [Active]; prednisone 10 mg Oral tab once daily [Active]; gabapentin 300 mg oral cap daily [Active]; - PMHx: 09:58 Anxiety; Hypertension; ulcerative colitis; iw - PSHx: 10:04 None; iw - Immunization history:: Adult Immunizations up to date. - Social history:: Smoking status: Patient reports the use of cigarette tobacco products, smokes one-half pack cigarettes per day. Screenin:35 Abuse screen: Denies threats or abuse. Denies injuries from another. Nutritional iw screening: No deficits noted. Tuberculosis screening: No symptoms or risk factors identified. Fall Risk None identified. Assessment: 10:34 General: Appears in no apparent distress. Behavior is calm, cooperative. Pain: iw Complains of pain in right lower quadrant and left lower quadrant. Neuro: Level of Consciousness is awake, alert, obeys commands, Oriented to person, place, time, situation, Moves all extremities. Full function. Cardiovascular: Patient's skin is warm and dry. Respiratory: Respiratory effort is even, unlabored, Respiratory pattern is regular, symmetrical. GI: Abdomen is non-distended, Reports lower abdominal pain. Derm: Skin is intact, is healthy with good turgor. Musculoskeletal: Range of motion: intact in all extremities. Vital Signs: 09:55 BP 134 / 80; Pulse 99; Resp 16; Temp 98.3; Pulse Ox 100% on R/A; Weight 51.71 kg; iw Height 5 ft. (152.40 cm); Pain 410; 09:55 Body Mass Index 22.26 (51.71 kg, 152.40 cm) iw ED Course: 09:34 Patient arrived in ED. ag5 09:35 Jamarcus Young MD is Private Physician. ag5 09:35 Alicia Nunn DO is Private Physician. ag5 09:37 Petra Faye [facility]-C [facility]. kb 09:37 Bradley Herzog MD is Attending Physician. kb 09:55 Priya Hartman, DANISH is Primary Nurse. iw 09:57 Triage completed. iw 09:57 Arm band placed on. iw 10:07 Initial lab(s) drawn, by ut, sent to lab. Inserted saline lock: 20 gauge in left dh3 antecubital area, using aseptic technique. Blood collected. 10:59 No provider procedures requiring assistance completed. IV discontinued, intact, iw bleeding controlled, No redness/swelling at site. Pressure dressing applied. 11:00 Patient has correct armband on for positive identification. iw Administered Medications: 10:33 Drug: Decadron - Dexamethasone 10 mg Route: IVP; Site: left antecubital; iw 11:00 Follow up: Response: No adverse reaction iw 10:34 Drug: NS 0.9% 1000 ml Route: IV; Rate: 1000 ml; Site: left antecubital; iw 11:30 Follow up: IV Status: Completed infusion iw Outcome: 10:49 Discharge ordered by . kb 10:59 Discharged to home ambulatory. iw 10:59 Condition: good 10:59 Discharge instructions given to patient, Instructed on discharge instructions, follow up and referral plans. medication usage, Demonstrated understanding of instructions, follow-up care, medications, Prescriptions given X 1. 11:00 Patient left the ED. iw Signatures: Petra Faye, LOCOMOTIVE CRANE ENGINEER-C LOCOMOTIVE CRANE ENGINEER-CkPriya Real, RN RN iw Naomi Eddy 3 Polly Moss 5 Corrections: (The following items were deleted from the chart) 10:02 09:55 BP 134 / 80; Pulse 99bpm; Resp 16bpm; Pulse Ox 100% RA; iw iw 10:05 09:30 Inserted saline lock: 22 gauge in right antecubital area, using aseptic iw technique. iw
[2020-03-25 12:12] VITALS: BP 134/80; TEMP 98.3; O2SAT 100
== END 2020-03-25 11:00 | disposition home or self-care (01) ==
LOC: ER 09:33
DX: K51.90 Ulcerative colitis, unspecified, without complications (principal); I10 Essential (primary) hypertension; F41.9 Anxiety disorder, unspecified; F17.210 Nicotine dependence, cigarettes, uncomplicated
CPT/HCPCS: 96361; 85025; 80048; 36415; 80076; 83690; 96374; 99284; J1100; J7030

== ENCOUNTER 2021-05-17 17:55 | Emergency (ER) | payer OTHER ==
--- OUTSIDE RECORDS SUMMARY | 2021-05-17 17:59 | XMS REPORT | Continuity of Care Document ---
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 visualized lung apices areunremarkable.THORACIC SPINE:The thoracic curvature is normal. The vertebral bodies are normal in heightand in normal alignment. No facet fracture or subluxation is present. The visualized portions of thelungs are clear.LUMBAR SPINE:The lumbar curvature is normal. The vertebral bodies are normal in heightand in normal alignment. No facet fracture or subluxation is present. The visualized sacrum and pelvic bones are unremarkable.IMPRESSIONCT head: Left occipital bone nondisplaced fracture. No significantoverlying soft tissue swelling is seen. Please correlate with previoushistory.Opacified nasal cavity and ethmoidal air cells.CT cervical, thoracic and lumbar spine: No fracture or subluxation.Lamine Castellanos have reviewed this study and agree with the abovereport.Lamine Castellanos MD., have reviewed this study and agree with theabove report.[facility] WO [id number] 22:57:27 CT head: Left occipital bone nondisplaced fracture. No significantoverlying soft tissue swelling isseen. Please correlate with previoushistory. Opacified nasal cavity and ethmoidal air cells. CT cervical, thoracic and lumbar spine: No fracture or subluxation. Lamine Castellanos have reviewed this study and agree with the abovereport. Philomena Castellanos MD., have reviewed this study and agree with theabove report.* * * * * * * * ORIGINAL REPORT * * * * * * * *CT HEAD WO CONTRAST, CT LUMBARSPINE WO CONTRAST, CT THORACIC SPINE WOCONTRAST, CT CERVICAL SPINE WO CONTRAST HISTORY: Head trauma,headache COMPARISON: None. TECHNIQUE: Noncontrast CT scan of the head and spine with coronal andsagittal reformats was performed. FINDINGS: CT HEAD: No hydrocephalus, midline shift or pathological extra-axial fluidcollection is present. The basal cisterns are unremarkable. There is no acute intracranial hemorrhage or significant mass effect. Noparenchymal attenuation abnormality. The clayton-white matter differentiationis preserved. Opacification of the nasal cavity and ethmoidal air cells is noted. Themastoid air cells and the remaining paranasal air sinuses are clear. Anondisplaced fracture is noted along the inferior aspect of the leftoccipital bone (2:29). CERVICAL SPINE: The cervical curvature is normal. The vertebral bodies are normal in heightand in normal alignment. No facet fracture or subluxation is present. Thecraniocervical junction is intact. The prevertebral soft tissues areunremarkable. The visualized cervical soft tissues and visualized lung apices areunremarkable. THORACIC SPINE:The thoracic curvature is normal. The vertebral bodies are normal in heightand in normal alignment. No facet fracture or subluxation is present. The visualized portions of the lungs are clear. LUMBAR SPINE: The lumbar curvature is normal. The vertebral bodies are normal in heightand in normal alignment. No facet fracture or subluxation is present. The visualized sacrum and pelvic bones are unremarkable. [facility], Radiant Results Inft User - 01/09/2019 5:57 PM CDT* * * * * * * * ORIGINAL REPORT * * * * * * * *CT HEAD WO CONTRAST, CT LUMBAR SPINE WO CONTRAST, CT THORACIC SPINE WOCONTRAST, CT CERVICAL SPINE WO CONTRASTHISTORY: Head trauma, headache COMPARISON: None.TECHNIQUE: Noncontrast CT scan of the head and spine with coronal andsagittal reformats was performed.FINDINGS:CT HEAD:No hydrocephalus, midline shift or pathological extra-axial fluidcollection is present. The basal cisterns are unremarkable.There is no acute intracranial hemorrhage or significant mass effect. Noparenchymal attenuation abnormality. The clayton-white matter differentiationis preserved.Opacification of the nasal cavity and ethmoidal air cells is noted. Themastoid air cells and the remaining paranasal air sinuses are clear.Anondisplaced fracture is noted along the inferior aspect of the leftoccipital bone (2:29).CERVICAL SPINE:The cervical curvature is normal. The vertebral bodies are normal in heightand in normal alignment. No facet fracture or subluxation is present. Thecraniocervical junction is intact. The prevertebr al soft tissues areunremarkable.The visualized cervical soft tissues and visualized lung apices areunremarkable.THORACIC SPINE:The thoracic curvature is normal. The vertebral bodies are normal in heightand in normal alignment. No facet fracture or subluxation is present. The visualized portions of thelungs are clear.LUMBAR SPINE:The lumbar curvature is normal. The vertebral bodies are normal in heightand in normal alignment. No facet fracture or subluxation is present. The visualized sacrum and pelvic bones are unremarkable.IMPRESSIONCT head: Left occipital bone nondisplaced fracture. No significantoverlying soft tissue swelling is seen. Please correlate with previoushistory.Opacified nasal cavity and ethmoidal air cells.CT cervical, thoracic and lumbar spine: No fracture or subluxation.Lamine Castellanos have reviewed this study and agree with the abovereport.Lamine Castellanos MD., have reviewed this study and agree with theabove report.[facility] LUM[facility] SP[facility] WO [id number] 22:57:27 CT head: Left occipital bone nondisplaced fracture. No significantoverlying soft tissue swelling isseen. Please correlate with previoushistory. Opacified nasal cavity and ethmoidal air cells. CT cervi amy, thoracic and lumbar spine: No fracture or subluxation. Lamine Castellanos have reviewed this study and agree with the abovereport. Philomena Castellanos MD., have reviewed this study and agree with theabove report.* * * * * * * * ORIGINAL REPORT * * * * * * * *CT HEAD WO CONTRAST, CT LUMBARSPINE WO CONTRAST, CT THORACIC SPINE WOCONTRAST, CT CERVICAL SPINE WO CONTRAST HISTORY: Head trauma,headache COMPARISON: None. TECHNIQUE: Noncontrast CT scan of the head and spine with coronal andsagittal reformats was performed. FINDINGS: CT HEAD: No hydrocephalus, midline shift or pathological extra-axial fluidcollection is present. The basal cisterns are unremarkable. There is no acute intracranial hemorrhage or significant mass effect. Noparenchymal attenuation abnormality. The clayton-white matter differentiationis preserved. Opacification of the nasal cavity and ethmoidal air cells is noted. Themastoid air cells and the remaining paranasal air sinuses are clear. Anondisplaced fracture is noted along the inferior aspect of the leftoccipital bone (2:29). CERVICAL SPINE: The cervical curvature is normal. The vertebral bodies are normal in heightand in normal alignment. No facet fracture or subluxation is present. Thecraniocervical junction is intact. The prevertebral soft tissues areunremarkable. The visualized cervical soft tissues and visualized lung apices areunremarkable. THORACIC SPINE:The thoracic curvature is normal. The vertebral bodies are normal in heightand in normal alignment. No facet fracture or subluxation is present. The visualized portions of the lungs are clear. LUMBAR SPINE: The lumbar curvature is normal. The vertebral bodies are normal in heightand in normal alignment. No facet fracture or subluxation is present. The visualized sacrum and pelvic bones are unremarkable. [facility], Radiant Results Inft User - 01/09/2019 5:57 PM CDT* * * * * * * * ORIGINAL REPORT * * * * * * * *CT HEAD WO CONTRAST, CT LUMBAR SPINE WO CONTRAST, CT THORACIC SPINE WOCONTRAST, CT CERVICAL SPINE WO CONTRASTHISTORY: Head trauma, headache COMPARISON: None.TECHNIQUE: Noncontrast CT scan of the head and spine with coronal andsagittal reformats was performed.FINDINGS:CT HEAD:No hydrocephalus, midline shift or pathological extra-axial fluidcollection is present. The basal cisterns are unremarkable.There is no acute intracranial hemorrhage or significant mass effect. Noparenchymal attenuation abnormality. The clayton-white matter differentiationis preserved.Opacification of the nasal cavity and ethmoidal air cells is noted. Themastoid air cells and the remaining paranasal air sinuses are clear.Anondisplaced fracture is noted along the inferior aspect of the leftoccipital bone (2:29).CERVICAL SPINE:The cervical curvature is normal. The vertebral bodies are normal in heightand in normal alignment. No facet fracture or subluxation is present. Thecraniocervical junction is intact. The prevertebr al soft tissues areunremarkable.The visualized cervical soft tissues and visualized lung apices areunremarkable.THORACIC SPINE:The thoracic curvature is normal. The vertebral bodies are normal in heightand in normal alignment. No facet fracture or subluxation is present. The visualized portions of thelungs are clear.LUMBAR SPINE:The lumbar curvature is normal. The vertebral bodies are normal in heightand in normal alignment. No facet fracture or subluxation is present. The visualized sacrum and pelvic bones are unremarkable.IMPRESSIONCT head: Left occipital bone nondisplaced fracture. No significantoverlying soft tissue swelling is seen. Please correlate with previoushistory.Opacified nasal cavity and ethmoidal air cells.CT cervical, thoracic and lumbar spine: No fracture or subluxation.Lamine Castellanos have reviewed this study and agree with the abovereport.Lamine Castellanos MD., have reviewed this study and agree with theabove report.[facility] TERMINAL [id number] 22:32:00 Test Item Value Reference Range Interpretation Comments NT-proBNP (test code 60 pg/mL See_Comment [Autom ated = 0238090156) message] The system which generated this result transmitted reference range : <=125. The reference range was not used to interpret this result as normal/abnormal . RACHEL (test code = RACHEL) Biotin has been reported to cause a negative bias, interpret results relative to patient's use of biotin. Lab Interpretation Normal (test code = 97257-5) [facility] Taylor[facility]asi Metabolic Panel (NA, K, CL, CO2, GLUCOSE, BUN, CREATININE, CA)2019-01-09 22:24:00 Test Item Value Reference Range Interpretation Comments NA (test code = 142 mmol/L 135-145 4466039593) K (test code = 4.0 mmol/L 3.5-5 7971413785) CL (test code = 106 mmol/L 98-108 0716018971) CO2 TOTAL (test code = 26 mmol/L 23-31 2657693072) AGAP (test code = 2-16 5434724300) BUN (test code = 8 mg/dL 7-23 0518638980) GLUCOSE (test code = 122 mg/dL 70-110 H 8854584568) CREATININE (test code = 0.73 mg/dL 0.5-1.04 7740229599) CALCIUM (test code = 9.6 mg/dL 8.6-10.6 2286611461) eGFR Calculation mL/min/1.73m2 (Non-) (test code = 1301877622) eGFR Calculation mL/min/1.73m2 () (test code = 9480258392) RACHEL (test code = RACHEL) Association of Glomerular Filtration Rate (GFR) and Staging of Kidney Disease*+ + + +| GFR (mL/min/1.73 m2)?| With Kidney Damage?|?Without Kidney Damage+ --------+ --------+ +|?>90?|?S tage one?|? Normal?+ ---------+ ---------+ +|?60-89? |?Stage two?|? Decreased GFR? + --+ --+ ------+|?30-59?|?Stage three?|? Stage three? + --+ --+ ------+|?15-29?|?Stage four? |? Stage four?+ -------+ -------+ +|?<15 (or dialysis)?|?Stage five? |? Stage five?+ -------+ -------+ +*Each stage assumes the associated GFR level has been in effect for at least three months.?Stages 1 to 5, with or without kidney disease, indicate chronic kidney disease.Notes: Determination of stages one and two (with eGFR >59mL/min/1.73 m2) requires estimation of kidney damage for at least three months as defined by structural or functional abnormalities of the kidney, manifested by either:Pathological abnormalities or Markers of kidney damage (including abnormalities in the composition of the blood or urine or abnormalities in imaging tests). Lab Interpretation Abnormal (test code = 79200-6) [facility] Taylor[facility] Function Panel (ALB, T.PRO, BILI T, BU/BC, ALT, AST, ALK PHOS)2019-01-09 22:24:00 Test Item Value Reference Range Interpretation Comments TOTAL BILI (test code = 2777542067) 0.3 mg/dL 0.1-1.1 BILI UNCON (test code = 8261135348) 0.2 mg/dL 0.1-1.1 BILI CONJ (test code = 4755927015) 0.0 mg/dL 0-0.3 T PROTEIN (test code = 1576097743) 7.4 g/dL 6.3-8.2 ALBUMIN (test code = 5283016465) 4.6 g/dL 3.5-5 ALK PHOS (test code = 0329157626) 61 U/L 34-122 ALT(SGPT) (test code = 4852066949) 26 U/L 9-51 AST(SGOT) (test code = 5396188310) 29 U/L 13-40 Lab Interpretation (test code = Normal 94008-4) [facility] TaylorLipase [id number] 22:24:00 Test Item Value Reference Range Interpretation Comments LIPASE (test code = 8509473570) 42 U/L 0-220 Lab Interpretation (test code = Normal 91203-1) [facility] TayloraPTT2019-08-02 22:23:00 Test Item Value Reference Range Interpretation Comments APTT Patient (test See_Comment [Automat ed code = 3173-2) message] The system which generated this result transmitted reference range : 23 - 38 Seconds . The reference range was not used to interpr et this result as normal/abnormal . RACHEL (test code = RACHEL) The [facility] patient population mean normal value for aPTT is 30 seconds. Lab Interpretation Normal (test code = 60546-2) [facility] TaylorProthrombin Time (PT) / [id number] 22:21:00 Test Item Value Reference Range Interpretation Comments PROTIME PATIENT (test See_Comment [Auto mated message] code = 5964-2) The system wh ich generated this result transmitted ref erence range: 12.0 - 1 4.7 Seconds. The re ference range was not u sed to interpret this result as normal/abnor mal. INR (test code = 6301-6) Nor mal INR <1.1; Warfarin Therap eutic range 2.0 to 3. 0 or 2.5 to 3.5, dep ending upon the indica tions. Lab Interpretation (test Normal code = 18001-8) [facility] TaylorCB WITH [id number] 22:12:00 Test Item Value Reference Range Interpretation Comments WBC (test code = See_Comment H [Automated 5190-2) message] The sy stem which generated this result transmitted reference range : 4.30 - 11.10 10*3/?L. The reference range was not used to interpret this result as normal/abnormal . RBC (test code = See_Comment [Automated 209-8) message] The sy stem which generated this result transmitted reference range : 3.93 - 5.25 10*6/?L. The reference range was not used to interpret this result as normal/abnormal . HGB (test code = 12.7 g/dL 11.6-15 718-7) HCT (test code = 40.6 % 35.7-45.2 4544-3) MCV (test code = 83.5 fL 80.6-95.5 787-2) MCH (test code = 26.1 pg 25.9-32.8 785-6) MCHC (test code = 31.3 g/dL 31.6-35.1 L 786-4) RDW-SD (test code = 41.7 fL 39-49.9 49393-0) RDW-CV (test code = 13.6 % 12-15.5 788-0) PLT (test code = See_Comment H [Automated 777-3) message] The sy stem which generated this result transmitted reference range : 166 - 358 10*3/ ?L. The reference r everette was not used to interpret this result as normal/abnormal . MPV (test code = 9.9 fL 9.5-12.9 19307-5) NRBC/100 WBC (test See_Comment [Automat ed code = 6599439998) message] The system which generated this result transmitted reference range : 0.0 - 10.0 /100 WBCs. The refer ence range was not u sed to interpret th is result as normal/abnormal . NRBC x10^3 (test code <0.01 See_Comment [Auto mated = 7360557946) message] The s ystem which generated this result transmitted reference range : 10*3/?L. The reference range was not used to interpret this result as normal/abnormal . GRAN MAT (NEUT) % 77.8 % (test code = 770-8) IMM GRAN % (test code 0.40 % = 5933756605) LYMPH % (test code = 15.4 % 736-9) MONO % (test code = 5.4 % 5905-5) EOS % (test code = 0.6 % 713-8) BASO % (test code = 0.4 % 706-2) GRAN MAT x10^3(ANC) 9.88 10*3/uL 1.88-7.09 H (test code = 9118571096) IMM GRAN x10^3 (test 0.05 10*3/uL 0-0.06 code = 5656621863) LYMPH x10^3 (test code 1.95 10*3/uL 1.32-3.29 = 731-0) MONO x10^3 (test code 0.68 10*3/uL 0.33-0.92 = 742-7) EOS x10^3 (test code = 0.08 10*3/uL 0.03-0.39 711-2) BASO x10^3 (test code 0.05 10*3/uL 0.01-0.07 = 704-7) Lab Interpretation Abnormal (test code = 34046-6) [facility]"
[2021-05-17 19:02] LABS: Absolute Lymphocytes (CBC) 1.7 K/uL (0.7-4.9); Basophils % 0.9 % (0-1.3); Hematocrit 40.3 % (36.0-45.0); Lymphocytes % 16.5 % (15.3-44.8); RBC Red Blood Cell Count 4.86 M/uL (3.86-4.86)
[2021-05-17] MEDS ORDERED: NA CHLORIDE 0.9% 1,000 ML ONE (19:13)
[2021-05-17 19:16] LABS: ALT/SGPT 25 U/L (12-78); AST/SGOT 9 U/L (15-37); Albumin 3.9 g/dL (3.4-5.0); Alkaline Phosphatase 44 U/L (45-117); BUN Blood Urea Nitrogen 10 mg/dL (7-18); Bicarbonate 29 mmol/L (21-32); Bilirubin Direct < 0.1 mg/dL (0-0.2); Bilirubin Total 0.3 mg/dL (0.2-1.0); Glucose Level 109 mg/dL (74-106); Lipase 91 U/L (73-393); Potassium 3.5 mmol/L (3.5-5.1); Protein, Total 6.8 g/dL (6.4-8.2); Sodium Level 141 mmol/L (136-145)
[2021-05-17] MEDS ORDERED: ONDANSETRON 4 MG/2 ML VIAL ONE (20:03)
[2021-05-17] MEDS ORDERED: MORPHINE 4 MG/ML SYR ONE (20:03)
--- NOTE | 2021-05-17 20:25 | RAD REPORT ---
EXAM DESCRIPTION: CTAbdomen Pelvis W Contrast - 05/17/2021 8:07 pm CLINICAL HISTORY: ABD PAIN COMPARISON: Abdomen Pelvis W Contrast dated 02/12/2018; CT ABD PELVIS W CONTRAST dated 10/12/2014 TECHNIQUE: CT of the abdomen and pelvis was performed. All CT scans are performed using dose optimization technique as appropriate and may include automated exposure control or mA/KV adjustment according to patient size. FINDINGS: Lower chest: No acute abnormality. Liver: No acute abnormality or suspicious lesions. Biliary: No biliary ductal dilatation. Stomach: No significant focal abnormality. Duodenum: No significant focal abnormality. Pancreas: No significant abnormality. Spleen: No significant abnormality. Adrenal: No suspicious lesions. Kidney/ureter: No hydronephrosis. No renal calculi. Retroperitoneum: No retroperitoneal adenopathy. Vascular: No aneurysm. Minimal atherosclerosis. Bowel: Normal appendix. Question colonic wall thickening extending from the mid transverse colon thro ugh the proximal descending colon. No bowel obstruction identified.. Peritoneum: No ascites or free air. Bladder: Grossly unremarkable. Reproductive: No adnexal masses. Bones: No acute fracture. Disc height loss at L5-S1. Other: n/a IMPRESSION: Mild colonic wall thickening at the splenic flexure that could be secondary to colitis o r underdistention. No complicating features are identified. No rectal or sigmoid inflammatory changes which would be more typical of an ulcerative colitis exacerbation. Normal appendix.
[2021-05-17 20:50] LABS: Urine Blood 2+ (Negative); Urine Glucose Negative (Negative); Urine Protein Negative (Negative); Urine Specific Gravity 1.015 (1.005-1.030)
[2021-05-17] MEDS ORDERED: METHYLPREDNISOLONE 125 MG INJ ONE (20:50)
[2021-05-17] MEDS ORDERED: metroNIDAZOLE 500 MG TABLET ONE (21:15)
[2021-05-17] MEDS ORDERED: CIPROFLOXACIN HCL 500 MG TAB ONE (21:15)
--- NOTE | 2021-05-17 21:42 | ER ---
Nurse's Notes [facility] Name: Kianna Horton Age: 55 yrs Sex: Female : 1965 Arrival Date: 05/17/2021 Time: 17:59 Bed 16 Private MD: Alicia Nunn H Diagnosis: Left sided colitis Presentation: 05/17 18:06 Chief complaint: Patient states: 'I'm starting a UC flare up and the only thing that [facility] will stop it is a high dosage steriods, I wont make it to my doctor appointment on the . I'm starting to have blood in my stool a couple days ago; I've had UC since 2005 so I know i need to get here and get on top of this". Coronavirus screen: Vaccine status: Patient reports receiving the 2nd dose of the covid vaccine. Client denies travel out of the [place] in the last 14 days. Ebola Screen: Patient negative for fever greater than or equal to 101.5 degrees Fahrenheit, and additional compatible Ebola Virus Disease symptoms Patient denies exposure to infectious person. Patient denies travel to an Ebola-affected area in the 21 days before illness onset. Initial Sepsis Screen: Does the patient meet any 2 criteria? No. Patient's initial sepsis screen is negative. Does the patient have a suspected source of infection? No. Patient's initial sepsis screen is negative. Risk Assessment: Do you want to hurt yourself or someone else? Patient reports no desire to harm self or others. Onset of symptoms was May 15, 2021. 18:06 Method Of Arrival: Ambulatory [facility] 18:06 Acuity: ANGELICA 3 5 Triage Assessment: 18:12 General: Appears uncomfortable, slender, well developed, well nourished, Behavior is [facility] calm, cooperative, appropriate for age. Pain: Complains of pain in abdomen. Historical: - Allergies: 19:23 No Known Allergies; iw - Home Meds: 18:12 Adderall XR Oral once daily [Active]; gabapentin 300 mg Oral cap daily [Active]; 5 hydrocodone-acetaminophen 7.5-325 mg Oral tab twice a day [Active]; losartan 50 mg Oral tab 1 tab once daily [Active]; prednisone 10 mg Oral tab once daily [Active]; - PMHx: 18:12 Anxiety; Hypertension; ulcerative colitis; jh5 - Immunization history:: Adult Immunizations up to date. - Social history:: Smoking status: Patient reports the use of cigarette tobacco products, smokes one-half pack cigarettes per day. Screenin:13 Abuse screen: Denies threats or abuse. Denies injuries from another. Nutritional jh5 screening: No deficits noted. Tuberculosis screening: No symptoms or risk factors identified. Fall Risk None identified. Assessment: 19:44 General: Appears in no apparent distress. comfortable, Behavior is calm, cooperative, ld1 appropriate for age. Pain: Complains of pain in abdomen Pain does not radiate. Pain currently is 8 out of 10 on a pain scale. Quality of pain is described as throbbing, Pain began suddenly, Is continuous. Neuro: Level of Consciousness is awake, alert, obeys commands, Oriented to person, place, time, situation, Appropriate for age. Cardiovascular: Capillary refill < 3 seconds Patient's skin is warm and dry. Respiratory: Airway is patent Respiratory effort is even, unlabored, Respiratory pattern is regular, symmetrical. GI: Abdomen is flat, non-distended, Reports lower abdominal pain, upper abdominal pain. : No signs and/or symptoms were reported regarding the genitourinary system. EENT: No signs and/or symptoms were reported regarding the EENT system. Derm: No signs and/or symptoms reported regarding the dermatologic system. Musculoskeletal: No signs and/or symptoms reported regarding the musculoskeletal system. 21:28 Reassessment: Patient appears in no apparent distress at this time. No changes from ld1 previously documented assessment. Patient and/or family updated on plan of care and expected duration. Pain level reassessed. Patient is alert, oriented x 3, equal unlabored respirations, skin warm/dry/pink. 21:53 Reassessment: Patient appears in no apparent distress at this time. No changes from ld1 previously documented assessment. Patient and/or family updated on plan of care and expected duration. Pain level reassessed. Patient is alert, oriented x 3, equal unlabored respirations, skin warm/dry/pink. Patient states feeling better. Vital Signs: 18:06 BP 169 / 117; Pulse 97; Resp 16; Temp 98.0; Pulse Ox 100% ; Weight 52.16 kg; Height 5 jh5 ft. 0 in. (152.40 cm); 19:00 BP 139 / 96; Pulse 83; Resp 18; Temp 98.0; Pulse Ox 100% ; Pain 8/10; al4 19:44 BP 141 / 98; Pulse 75; Resp 18; Pulse Ox 100% on R/A; ld1 21:28 BP 162 / 103; Pulse 73; Resp 18; Pulse Ox 100% on R/A; ld1 18:06 Body Mass Index 22.46 (52.16 kg, 152.40 cm) [facility] ED Course: 17:59 Patient arrived in ED. mr 18:00 Jamarcus Young MD is Private Physician. mr 18:00 Alicia Nunn DO is Private Physician. mr 18:12 Triage completed. [facility] 18:13 Arm band placed on right wrist. [facility] 18:13 Patient has correct armband on for positive identification. [facility] 18:24 Wallace Padilla PA is PHCP. cp 18:24 Anisha Brunner MD is Attending Physician. cp 18:58 Inserted saline lock: 20 gauge in left antecubital area, using aseptic technique. Blood al4 collected. 19:06 Momo Up MD is Attending Physician. cp 19:20 Priya Hartman, DANISH is Primary Nurse. iw 20:07 CT Abd/Pelvis - IV Contrast Only In Process Unspecified. EDMS 21:40 Jamarcus Burton MD is Referral Physician. cp 21:53 Removal of peripheral IV. Catheter intact, dressing applied. lt3 21:53 No provider procedures requiring assistance completed. IV discontinued, intact, ld1 bleeding controlled, No redness/swelling at site. Administered Medications: 19:21 Drug: NS 0.9% 500 ml Route: IV; Rate: bolus; Site: left antecubital; al4 20:26 Drug: Zofran (Ondansetron) 4 mg Route: IVP; Site: left antecubital; ld1 20:27 Follow up: Response: No adverse reaction ld1 20:27 Drug: NS 0.9% 500 ml Route: IV; Rate: 125 ml/hr; Site: left antecubital; ld1 20:27 Drug: morphine 4 mg Route: IVP; Site: left antecubital; ld1 20:27 Follow up: Response: No adverse reaction ld1 20:59 Drug: SOLU-Medrol (methylPrednisoLONE) 80 mg Route: IVP; Site: left antecubital; ld1 20:59 Follow up: Response: No adverse reaction ld1 21:25 Drug: Cipro (ciprofloxacin) 500 mg Route: PO; ld1 21:25 Drug: metroNIDAZOLE 500 mg Route: PO; ld1 Outcome: 21:41 Discharge ordered by . cp 21:53 Discharged to home ambulatory. ld1 21:53 Condition: stable 21:53 Discharge instructions given to patient, Instructed on discharge instructions, follow up and referral plans. medication usage, Demonstrated understanding of instructions, follow-up care, medications, Prescriptions given X 5 21:54 Patient left the ED. ld1 Signatures: Dispatcher [employer] EDIL Giana Hargrove Irene, RN RN Wallace Vivar PA PA cp Dibbern, Lauren RN RN ld1 Toya Cool RN RN jh5 Francesco Garay[address] 3
--- NOTE | 2021-05-17 21:42 | EDPHYS ---
Physician Documentation [facility] Name: Kianna Horton Age: 55 yrs Sex: Female : 1965 Arrival Date: 05/17/2021 Time: 17:59 Bed 16 Private MD: Alicia Nunn H ED Physician Momo Up HPI: 05/17 18:30 This 55 yrs old Female presents to ER via Ambulatory with complaints of UC cp flare up. 18:30 The patient presents with abdominal pain in the upper abdomen. cp 18:30 Onset: The symptoms/episode began/occurred 2 day(s) ago. cp 18:30 The symptoms do not radiate. Associated signs and symptoms: Pertinent positives: blood cp in stools, nausea, loose stools, Pertinent negatives: anorexia, constipation, fever, vomiting. The symptoms are described as constant. The patient has experienced similar episodes in the past, multiple times, today's symptoms are similar, to previous flare up of ulcerative colitis. Historical: - Allergies: 19:23 No Known Allergies; iw - Home Meds: 18:12 Adderall XR Oral once daily [Active]; gabapentin 300 mg Oral cap daily [Active]; jh5 hydrocodone-acetaminophen 7.5-325 mg Oral tab twice a day [Active]; losartan 50 mg Oral tab 1 tab once daily [Active]; prednisone 10 mg Oral tab once daily [Active]; - PMHx: 18:12 Anxiety; Hypertension; ulcerative colitis; jh5 - Immunization history:: Adult Immunizations up to date. - Social history:: Smoking status: Patient reports the use of cigarette tobacco products, smokes one-half pack cigarettes per day. ROS: 18:35 Constitutional: Negative for body aches, chills, fever, poor PO intake. cp 18:35 Eyes: Negative for injury, pain, redness, and discharge. cp 18:35 ENT: Negative for ear pain, sore throat, difficulty swallowing, difficulty handling secretions. 18:35 Cardiovascular: Negative for chest pain, edema, palpitations. 18:35 Respiratory: Negative for cough, shortness of breath, wheezing. 18:35 Abdomen/GI: Positive for abdominal pain, nausea, vomiting, and diarrhea, blood in stool, Negative for constipation. 18:35 Back: Negative for pain at rest, pain with movement. 18:35 : Negative for urinary symptoms. 18:35 Neuro: Negative for altered mental status, headache, weakness. 18:35 All other systems are negative. Exam: 18:40 Constitutional: The patient appears in no acute distress, alert, awake, cp non-diaphoretic, non-toxic, well developed, well nourished, uncomfortable. 18:40 Head/Face: Normocephalic, atraumatic. cp 18:40 Eyes: Periorbital structures: appear normal, Conjunctiva: normal, no exudate, no injection, Sclera: no appreciated abnormality, Lids and lashes: appear normal, bilaterally. 18:40 ENT: External ear(s): are unremarkable, Nose: is normal, Mouth: Lips: moist, Oral mucosa: moist, Posterior pharynx: Airway: no evidence of obstruction, patent. 18:40 Chest/axilla: Inspection: normal. 18:40 Cardiovascular: Rate: normal, Rhythm: regular, Edema: is not appreciated, JVD: is not appreciated. 18:40 Respiratory: the patient does not display signs of respiratory distress, Respirations: normal, no use of accessory muscles, no retractions, labored breathing, is not present, Breath sounds: are clear throughout, no decreased breath sounds. 18:40 Abdomen/GI: Inspection: abdomen appears normal, Bowel sounds: active, all quadrants, Palpation: soft, in all quadrants, moderate abdominal tenderness, in the right upper quadrant and left upper quadrant, rebound tenderness, is not appreciated, involuntary guarding, is not appreciated. 18:40 Back: pain, is absent, ROM is normal. 18:40 Neuro: Orientation: to person, place \T\ time. Mentation: is normal, Motor: moves all fours, strength is normal, Sensation: is normal. Vital Signs: 18:06 BP 169 / 117; Pulse 97; Resp 16; Temp 98.0; Pulse Ox 100% ; Weight 52.16 kg; Height 5 jh5 ft. 0 in. (152.40 cm); 19:00 BP 139 / 96; Pulse 83; Resp 18; Temp 98.0; Pulse Ox 100% ; Pain 8/10; al4 19:44 BP 141 / 98; Pulse 75; Resp 18; Pulse Ox 100% on R/A; ld1 21:28 BP 162 / 103; Pulse 73; Resp 18; Pulse Ox 100% on R/A; ld1 18:06 Body Mass Index 22.46 (52.16 kg, 152.40 cm) 5 MDM: 18:42 Patient medically screened. cp 20:00 Differential diagnosis: bowel obstruction, diverticulitis, gastritis, GI Bleed, cp non-specific abd pain, pancreatitis, Pyelonephritis, Ureterolithiasis, urinary tract infection. 21:41 Data reviewed: vital signs, nurses notes, lab test result(s), radiologic studies, CT cp scan. 21:41 Counseling: I had a detailed discussion with the patient and/or guardian regarding: the cp historical points, exam findings, and any diagnostic results supporting the discharge/admit diagnosis, lab results, radiology results, the need for outpatient follow up, a welcome hostess, to return to the emergency department if symptoms worsen or persist or if there are any questions or concerns that arise at home. Response to treatment: the patient's symptoms have markedly improved after treatment, VSS. Pain and nausea markedly improved. Will discharge to home for continued monitoring. 05/17 18:25 Order name: Basic Metabolic Panel; Complete Time: 20:02 cp 05/17 18:25 Order name: CBC with Diff; Complete Time: 19:04 cp 05/17 18:25 Order name: Hepatic Function; Complete Time: 20:02 cp 05/17 18:25 Order name: Lipase; Complete Time: 20:02 cp 05/17 19:05 Order name: CT Abd/Pelvis - IV Contrast Only; Complete Time: 20:36 cp 05/17 20:50 Order name: Urine Dipstick-Ancillary; Complete Time: 21:41 EDMS 05/17 18:25 Order name: IV Saline Lock; Complete Time: 18:56 cp 05/17 18:25 Order name: Labs collected and sent; Complete Time: 18:56 cp 05/17 20:38 Order name: Urine Dipstick-Ancillary (obtain specimen); Complete Time: 20:58 cp 05/17 20:52 Order name: PO challenge; Complete Time: 20:59 cp Administered Medications: 19:21 Drug: NS 0.9% 500 ml Route: IV; Rate: bolus; Site: left antecubital; al4 20:26 Drug: Zofran (Ondansetron) 4 mg Route: IVP; Site: left antecubital; ld1 20:27 Follow up: Response: No adverse reaction ld1 : Drug: NS 0.9% 500 ml Route: IV; Rate: 125 ml/hr; Site: left antecubital; ld1 : Drug: morphine 4 mg Route: IVP; Site: left antecubital; ld1 20: Follow up: Response: No adverse reaction ld1 20:59 Drug: SOLU-Medrol (methylPrednisoLONE) 80 mg Route: IVP; Site: left antecubital; ld1 20:59 Follow up: Response: No adverse reaction ld1 21:25 Drug: Cipro (ciprofloxacin) 500 mg Route: PO; ld1 21:25 Drug: metroNIDAZOLE 500 mg Route: PO; ld1 Disposition: 05/18 02:51 Co-signature as Attending Physician, Momo Up MD I agree with the assessment and rn plan of care. Attestation: The patient's history, exam findings, diagnostics, and a summary of any interventions or procedures was reviewed in detail with Wallace JUNG. Disposition Summary: 05/17/21 21:41 Discharge Ordered Location: Home cp Problem: an acute exacerbation cp Symptoms: have improved cp Condition: Stable cp Diagnosis - Left sided colitis cp Followup: cp - With: Jamarcus Burton MD - When: 2 - 3 days - Reason: Recheck today's complaints Discharge Instructions: - Discharge Summary Sheet cp - Ulcerative Colitis, Adult cp Forms: - Medication Reconciliation Form cp - Thank You Letter cp - Antibiotic Education cp - Prescription Opioid Use cp Prescriptions: - Zofran 4 mg Oral Tablet - take 1 tablet by ORAL route every 12 hours As needed; 20 tablet; Refills: 0, cp Product Selection Permitted - Cipro 500 mg Oral Tablet - take 1 tablet by ORAL route every 12 hours for 10 days; 20 tablet; Refills: 0, cp Product Selection Permitted - Metronidazole 500 mg Oral Tablet - take 1 tablet by ORAL route every 8 hours; 30 tablet; Refills: 0, Product cp Selection Permitted - Prednisone 20 mg Oral Tablet - take 2 tablets by ORAL route once daily for 5 days; 10 tablet; Refills: 0, cp Product Selection Permitted - dicyclomine 20 mg Oral Tablet - take 2 tablets by ORAL route 4 times per day; 30 tablet; Refills: 0, Product cp Selection Permitted Signatures: Dispatcher [employer] Priya De Jesus RN RN iw Nieto, Roman, MD MD rn Page, Wallace, Bebe Guzman cp, RN RN ld1 Toya Cool, RN RN jh5 Francesco Garay
[2021-05-17 22:24] VITALS: TEMP 98; O2SAT 100
[2021-05-17 22:28] VITALS: BP 162/103
== END 2021-05-17 21:54 | disposition home or self-care (01) ==
LOC: ER 17:55
DX: K51.50 Left sided colitis without complications (principal); I10 Essential (primary) hypertension; F41.9 Anxiety disorder, unspecified; F17.210 Nicotine dependence, cigarettes, uncomplicated
CPT/HCPCS: 85025; 80048; 36415; 80076; 81003; 83690; 74177; 96375; 96374; 99284; Q9967; J7030; J2930; J2405

== ENCOUNTER 2022-02-15 00:57 | Emergency (ER) | payer OTHER ==
--- OUTSIDE RECORDS SUMMARY | 2022-02-15 01:00 | XMS REPORT | Continuity of Care Document ---
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 [facility]oundLipase [id number] 22:24:00 Test Item Value Reference Range Interpretation Comments LIPASE (test code = 4976320895) 42 U/L 0-220 Lab Interpretation (test code = Normal 36447-3) [facility]aPTT2019-08-02 22:23:00 Test Item Value Reference Range Interpretation Comments APTT Patient (test See_Comment [Automat ed code = 3173-2) message] The system which generated this result transmitted reference range : 23 - 38 Seconds . The reference range was not used to interpr et this result as normal/abnormal . RACHEL (test code = RACHEL) [facility] patient population mean normal value for aPTT is 30 seconds. Lab Interpretation Normal (test code = 95691-5) [facility]oundProthrombin Time (PT) / [id number] 22:21:00 Test Item Value Reference Range Interpretation [...] tions. Lab Interpretation (test Normal code = 14239-4) [facility]oundCBC WITH [id number] 22:12:00 Test Item Value Reference Range Interpretation Comments WBC (test code = See_Comment H [Automated 7719-2) message] The sy stem which generated this result transmitted reference range : 4.30 - 11.10 10*3/?L. The reference range was not used to interpret this result as normal/abnormal . RBC (test code = See_Comment [Automated 218-8) message] The sy stem which generated this [...] RDW-SD (test code = 41.7 fL 39-49.9 95120-0) RDW-CV (test code = 13.6 % 12-15.5 788-0) PLT (test code = See_Comment H [Automated 777-3) message] The sy stem which generated this result transmitted reference range : 166 - 358 10*3/ ?L. The reference r everette was not used to interpret this result as normal/abnormal . MPV (test code = 9.9 fL 9.5-12.9 10374-5) NRBC/100 WBC (test See_Comment [Automat ed code = 8904648591) message] The system which generated this result transmitted reference range : 0.0 - 10.0 /100 WBCs. The refer ence range was not u sed to interpret th is result as normal/abnormal . NRBC x10^3 (test code <0.01 See_Comment [Auto mated = 0355175263) message] The s ystem which generated this result transmitted reference range : 10*3/?L. The reference range was not used to interpret this result as normal/abnormal . GRAN MAT (NEUT) % 77.8 % (test code = 770-8) IMM GRAN % (test code 0.40 % = 3010510437) LYMPH % (test code = 15.4 % 736-9) MONO % (test code = 5.4 % 5905-5) EOS % (test code = 0.6 % 713-8) BASO % (test code = 0.4 % 706-2) GRAN MAT x10^3(ANC) 9.88 10*3/uL 1.88-7.09 H (test code = 8281119739) IMM GRAN x10^3 (test 0.05 10*3/uL 0-0.06 code = 9637339542) LYMPH x10^3 (test code 1.95 10*3/uL 1.32-3.29 = 731-0) MONO x10^3 (test code 0.68 10*3/uL 0.33-0.92 = 742-7) EOS x10^3 (test code = 0.08 10*3/uL 0.03-0.39 711-2) BASO x10^3 (test code 0.05 10*3/uL 0.01-0.07 = 704-7) Lab Interpretation Abnormal (test code = 15822-1) [facility]"
[2022-02-15] MEDS ORDERED: DIPHENHYDRAMINE 50 MG/ML VIAL ONE (01:30)
[2022-02-15] MEDS ORDERED: KETOROLAC 30 MG/ML INJ ONE (01:30)
--- NOTE | 2022-02-15 02:13 | EDPHYS ---
Physician Documentation [facility] Name: Kianna Horton Age: 56 yrs Sex: Female : 1965 Arrival Date: 02/15/2022 Time: 01:01 Bed 20 Private MD: Alicia Nunn H ED Physician Momo Up HPI: 02/15 01:12 This 56 yrs old Female presents to ER via Unassigned with complaints of rn Chemical Burn. 01:12 The patient presents with a burn as a result of disinfectant, at work. Onset: The rn symptoms/episode began/occurred last night. The patient has not experienced similar symptoms in the past. The patient has not recently seen a physician. Pt reports sprayed her hair with disinfectant at work yesterday, feels like burned her scalp. Sprayed her hair because feels like has bugs in her scalp, has been happening for months, tried permethrin and did not work. States multiple physician and ER visits and "they think I'm crazy". States feels like scalp hurts and is sensitive. Washed hair at home "for a minute". Came in for shot of pain medication. Denies systemic symptoms. . Historical: - Allergies: 01:24 No Known Allergies; vc1 - Home Meds: 01:24 Adderall XR Oral once daily [Active]; gabapentin 300 mg Oral cap daily [Active]; vc1 hydrocodone-acetaminophen 7.5-325 mg Oral tab twice a day [Active]; - PMHx: 01:24 Anxiety; Hypertension; ulcerative colitis; vc1 - PSHx: 01:24 None; vc1 - Immunization history:: Adult Immunizations up to date, Client reports receiving the 2nd dose of the Covid vaccine. - Social history:: Smoking status: Patient reports the use of cigarette tobacco products, smokes one-half pack cigarettes per day. - Family history:: not pertinent. - Hospitalizations: : No recent hospitalization is reported. ROS: 01:12 Constitutional: Negative for fever, chills, and weight loss, Eyes: Negative for injury, rn pain, redness, and discharge, Neck: Negative for injury, pain, and swelling, Cardiovascular: Negative for chest pain, palpitations, and edema, Respiratory: Negative for shortness of breath, cough, wheezing, and pleuritic chest pain, Abdomen/GI: Negative for abdominal pain, nausea, vomiting, diarrhea, and constipation, Back: Negative for injury and pain, MS/Extremity: Negative for injury and deformity, Skin: + burning sensation to scalp Neuro: Negative for headache, weakness, numbness, tingling, and seizure. 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 Head/Face: Normocephalic. Scalp with a few subcentimeter erythematous spots, no bleeding, no skin sloughing, no drainage, no evidence of burn Eyes: Pupils equal round and reactive to light, extra-ocular motions intact. Lids and lashes normal. Conjunctiva and sclera are non-icteric and not injected. Cornea within normal limits. Periorbital areas with no swelling, redness, or edema. Skin: Warm, dry Vital Signs: 01:03 BP 161 / 80; Pulse 95; Resp 18 S; Pulse Ox 100% ; ha1 MDM: 01:02 Patient medically screened. rn 01:12 ED course: Pt showed us a "bag of bugs" that she obtained after spraying rn disinfectant, no bugs identified in bag, only wet paper towel. . 02:10 Differential diagnosis: chemical burn. Data reviewed: vital signs, nurses notes, and as rn a result, I will discharge patient. Counseling: I had a detailed discussion with the patient and/or guardian regarding: the historical points, exam findings, and any diagnostic results supporting the discharge/admit diagnosis, the need for outpatient follow up, to return to the emergency department if symptoms worsen or persist or if there are any questions or concerns that arise at home. Response to treatment: the patient's symptoms have markedly improved after treatment, and as a result, I will discharge patient. Special discussion: I discussed with the patient/guardian in detail that at this point there is no indication for admission to the hospital. It is understood, however, that if the symptoms persist or worsen the patient needs to return immediately for re-evaluation. Based on the history and exam findings, there is no indication for further emergent testing or inpatient evaluation. I discussed with the patient/guardian the need to see the dye feeder for further evaluation of the symptoms. 02/15 01:12 Order name: Wound Care; Complete Time: 02:00 rn Administered Medications: 01:35 Drug: Ketorolac 30 mg Route: IM; Site: left vastus lateralis; ha1 02:03 Follow up: Response: No adverse reaction ha1 01:35 Drug: Benadryl (diphenhydrAMINE) 25 mg Route: IM; Site: right vastus lateralis; ha1 02:02 Follow up: Response: No adverse reaction ha1 Disposition Summary: 02/15/22 02:12 Discharge Ordered Location: Home rn Problem: new rn Symptoms: have improved rn Condition: Stable rn Diagnosis - Chemical burn of scalp rn Followup: rn - With: Private Physician - When: As needed - Reason: Recheck today's complaints, Re-evaluation by your physician Discharge Instructions: - Discharge Summary Sheet rn - Chemical Burn, Adult rn Forms: - Medication Reconciliation Form rn - Thank You Letter rn - Antibiotic ldr rn - Prescription Opioid Use rn - Work release form pm1 Signatures: Momo Up MD MD rn Calcote, Vanessa, RN RN 1 Saida Thurman RN RN 1 Corrections: (The following items were deleted from the chart) 02:11 02:10 Special discussion: I discussed with the patient/guardian in detail that at this rn point there is no indication for admission to the hospital. It is understood, however, that if the symptoms persist or worsen the patient needs to return immediately for re-evaluation. rn
--- NOTE | 2022-02-15 02:13 | ER ---
Nurse's Notes [facility] Name: Kianna Horton Age: 56 yrs Sex: Female : 1965 Arrival Date: 02/15/2022 Time: 01:01 Bed 20 Private MD: Alicia Nunn H Diagnosis: Chemical burn of scalp Presentation: 02/15 01:21 Chief complaint: Patient states: "I have bugs in my hair and I sprayed it with vc1 disenfectant. Now the back of my neck salas so bad. I went to [place] for the bugs but they told me there was nothing there.". Coronavirus screen: Vaccine status: Patient reports receiving the 2nd dose of the covid vaccine. [employer]. Ebola Screen: No symptoms or risks identified at this time. Risk Assessment: Do you want to hurt yourself or someone else? Patient reports no desire to harm self or others. Onset of symptoms is unknown. 01:21 Method Of Arrival: Ambulatory vc1 01:21 Acuity: ANGELICA 4 vc1 02:24 Initial Sepsis Screen: Does the patient meet any 2 criteria? No. Patient's initial ha1 sepsis screen is negative. 02:29 Initial Sepsis Screen: Does the patient have a suspected source of infection? No. ha1 Patient's initial sepsis screen is negative. Triage Assessment: 01:24 General: Appears in no apparent distress. Behavior is cooperative, anxious. Pain: vc1 Complains of pain in base of the skull Pain does not radiate. Neuro: Level of Consciousness is awake, alert, obeys commands, Oriented to person, place. Cardiovascular: Patient's skin is warm and dry. Respiratory: Airway is patent Respiratory effort is even, unlabored, Respiratory pattern is regular, symmetrical. GI: No deficits noted. : No deficits noted. Derm: Skin is intact, Rash noted that is. Musculoskeletal: No deficits noted. Injury Description: Disinfectant. Historical: - Allergies: 01:24 No Known Allergies; vc1 - Home Meds: 01:24 Adderall XR Oral once daily [Active]; gabapentin 300 mg Oral cap daily [Active]; vc1 hydrocodone-acetaminophen 7.5-325 mg Oral tab twice a day [Active]; - PMHx: 01:24 Anxiety; Hypertension; ulcerative colitis; vc1 - PSHx: 01:24 None; vc1 - Immunization history:: Adult Immunizations up to date, Client reports receiving the 2nd dose of the Covid vaccine. - Social history:: Smoking status: Patient reports the use of cigarette tobacco products, smokes one-half pack cigarettes per day. - Family history:: not pertinent. - Hospitalizations: : No recent hospitalization is reported. Screenin:24 Abuse screen: Denies threats or abuse. Nutritional screening: No deficits noted. vc1 Tuberculosis screening: No symptoms or risk factors identified. Fall Risk None identified. Assessment: 01:03 General: Appears distressed, Behavior is cooperative, anxious. ha1 01:03 Pain: Complains of pain in scalp Pain does not radiate. Pain currently is 10 out of 10 ha1 on a pain scale. Quality of pain is described as burning. Neuro: Level of Consciousness is awake, alert, obeys commands, Oriented to person, place, time, situation. Cardiovascular: Patient's skin is warm and dry. Respiratory: Airway is patent Trachea midline Respiratory effort is even, unlabored, Respiratory pattern is regular, symmetrical. 02:02 Reassessment: Patient and/or family updated on plan of care and expected duration. Pain ha1 level reassessed. Patient is alert, oriented x 3, equal unlabored respirations, skin warm/dry/pink. Vital Signs: 01:03 BP 161 / 80; Pulse 95; Resp 18 S; Pulse Ox 100% ; ha1 ED Course: 01:01 Patient arrived in ED. es 01:01 Alicia Nunn DO is Private Physician. es 01:02 Momo Up MD is Attending Physician. rn 01:12 Berenice Reddy RN is Primary Nurse. kd3 01:24 Triage completed. vc1 01:27 Arm band placed on right wrist. vc1 01:27 Patient has correct armband on for positive identification. vc1 02:23 No provider procedures requiring assistance completed. Patient did not have IV access ha1 during this emergency room visit. Administered Medications: 01:35 Drug: Ketorolac 30 mg Route: IM; Site: left vastus lateralis; ha1 02:03 Follow up: Response: No adverse reaction ha1 01:35 Drug: Benadryl (diphenhydrAMINE) 25 mg Route: IM; Site: right vastus lateralis; ha1 02:02 Follow up: Response: No adverse reaction ha1 Medication: 02:29 VIS not applicable for this client. ha1 Outcome: 02:12 Discharge ordered by . rn 02:24 Discharged to home ambulatory. ha1 02:24 Condition: stable 02:24 Discharge instructions given to patient. 02:25 Patient left the ED. ha1 Signatures: Cinthia Suarez Roman, MD MD rn Doucette, Kyli RN RN kd3 Mellissa Whitmore RN RN vc1 Saida Thurman RN RN ha1
[2022-02-15 07:39] VITALS: BP 161/80; O2SAT 100
== END 2022-02-15 02:25 | disposition home or self-care (01) ==
LOC: ER 00:57
DX: T20.45XA Corrosion of unspecified degree of scalp [any part], initial encounter (principal); I10 Essential (primary) hypertension; F41.9 Anxiety disorder, unspecified; F17.210 Nicotine dependence, cigarettes, uncomplicated
CPT/HCPCS: 96372; 99282; J1200

== ENCOUNTER 2023-09-09 01:52 | Emergency (ER) | payer OTHER ==
[2023-09-09] MEDS ORDERED: GABAPENTIN 300 MG CAP ONE (02:01)
[2023-09-09] MEDS ORDERED: ONDANSETRON 4 MG/2 ML VIAL ONE (02:01)
[2023-09-09] MEDS ORDERED: MORPHINE 4 MG/ML SYR ONE (02:02)
[2023-09-09 02:40] LABS: Absolute Basophils 0.1 K/uL (0-0.5); Absolute Eosinophils 0.1 K/uL (0-0.5); Absolute Lymphocytes (CBC) 1.6 K/uL (0.7-4.9); Absolute Neutrophil 11.9 K/uL (1.8-8.0); Basophils % 0.5 % (0-1.3); Eosinophils % 0.4 % (0-4.4); Hematocrit 37.7 % (36.0-45.0); Lymphocytes % 10.7 % (15.3-44.8); MCH 27.3 pg (27.0-35.0); MCHC 31.9 g/dL (32.0-36.0); MCV 85.7 fL (80-100); Monocytes % 7.2 % (3.3-12.3); Neutrophils % 81.2 % (41.7-73.7); Platelets 339 thou/uL (152-406)
[2023-09-09 02:51] LABS: Albumin 3.7 g/dL (3.4-5.0); Albumin/Globulin Ratio 1.3 (1.1-1.8); Anion Gap 8.8 mEq/L (5.0-15.0); Bilirubin Total 0.3 mg/dL (0.2-1.0); Globulin 2.8 g/dL (2.3-3.5); Potassium 3.8 mEq/L (3.5-5.1); Protein, Total 6.5 g/dL (6.4-8.2)
[2023-09-09] MEDS ORDERED: KETOROLAC 30 MG/ML INJ ONE (04:27)
--- NOTE | 2023-09-09 04:46 | EDPHYS ---
Physician Documentation [facility] Name: Kianna Horton Age: 57 yrs Sex: Female : 1965 Arrival Date: 09/09/2023 Time: 01:52 Bed 19 Private MD: ED Physician Momo Up HPI: 09/08 01:57 This 57 yrs old Female presents to ER via EMS with complaints of back pain. rn 01:57 The patient presents with pain that is acute, with no known mechanism of injury. The rn symptoms are located in the low back. Onset: The symptoms/episode began/occurred 3 day(s) ago. The pain radiates to the right leg and left leg. Associated signs and symptoms: Pertinent negatives: abdominal pain, chest pain, dysuria, fever, hematuria, incontinence, nausea, numbness, tingling, urinary retention, vomiting, weakness. Modifying factors: The patient symptoms are alleviated by nothing, the patient symptoms are aggravated by any movement. Severity of symptoms: At their worst the symptoms were moderate, in the emergency department the symptoms are unchanged. The patient has experienced similar episodes in the past. Patient reports low back pain that radiates towards both hips. Patient reports chronic back pain with disc problems from the neck down to lower back. Patient states helped someone move a mattress recently and may have overdone it. No fall or direct trauma. No weakness of lower extremities. No bowel or bladder complaints. No fever. Patient reports more pain than usual so came in for evaluation.. Historical: - Allergies: 01:56 No Known Allergies; rv - PMHx: 01:56 Anxiety; Hypertension; ulcerative colitis; rv - Immunization history:: Adult Immunizations up to date. - Social history:: Smoking status: Patient denies any tobacco usage or history of. - Family history:: not pertinent. - Hospitalizations: : No recent hospitalization is reported. ROS: 01:57 Constitutional: Negative for fever, chills, and weight loss, Eyes: Negative for injury, rn pain, redness, and discharge, Neck: Negative for injury, pain, and swelling, Cardiovascular: Negative for chest pain, palpitations, and edema, Respiratory: Negative for shortness of breath, cough, wheezing, and pleuritic chest pain, Abdomen/GI: Negative for abdominal pain, nausea, vomiting, diarrhea, and constipation, Back: Positive for back pain, negative for injury MS/Extremity: Negative for injury and deformity, Skin: Negative for injury, rash, and discoloration, Neuro: Negative for headache, weakness, numbness, tingling, and seizure, Exam: 01:57 Constitutional: This is a well developed, well nourished patient who is awake, alert, rn appears uncomfortable Head/Face: Normocephalic, atraumatic. Cardiovascular: Regular rate and rhythm with a normal S1 and S2. No gallops, murmurs, or rubs. Normal PMI, no JVD. No pulse deficits. Respiratory: Lungs have equal breath sounds bilaterally, clear to auscultation and percussion. No rales, rhonchi or wheezes noted. No increased work of breathing, no retractions or nasal flaring. Abdomen/GI: Soft, non-tender, with normal bowel sounds. No distension or tympany. No guarding or rebound. No evidence of tenderness throughout. Back: Positive for lower back pain MS/ Extremity: Pulses equal, no cyanosis. Neurovascular intact. Full, normal range of motion. Equal circumference. Neuro: Awake and alert, GCS 15, oriented to person, place, time, and situation. Cranial nerves II-XII grossly intact. Motor strength 5/5 in all extremities. Sensory grossly intact. Vital Signs: 01:55 BP 157 / 91; Pulse 89; Resp 18; Temp 98; Pulse Ox 99% ; rv 05:00 BP 168 / 89; Pulse 88; Resp 18; Temp 98; Pulse Ox 97% on R/A; rv Mark Coma Score: 05:00 Eye Response: spontaneous(4). Motor Response: obeys commands(6). Verbal Response: rv oriented(5). Total: 15. MDM: 01:55 Patient medically screened. rn 04:45 Differential diagnosis: arthritis, chronic back pain, Fatigue Fracture Osteoarthritis rn sprain, vertebral fracture. Data reviewed: vital signs, nurses notes, lab test result(s), radiologic studies, CT scan, and as a result, I will discharge patient. Counseling: I had a detailed discussion with the patient and/or guardian regarding the historical points, exam findings, and any diagnostic results supporting the discharge/admit diagnosis, lab results, radiology results, the need for outpatient follow up, to return to the emergency department if symptoms worsen or persist or if there are any questions or concerns that arise at home. Response to treatment: the patient's symptoms have mildly improved after treatment, and as a result, I will discharge patient. Special discussion: I discussed with the patient/guardian in detail that at this point there is no indication for admission to the hospital. It is understood, however, that if the symptoms persist or worsen the patient needs to return immediately for re-evaluation. Based on the history and exam findings, there is no indication for further emergent testing or inpatient evaluation. I discussed with the patient/guardian the need to see the back specialist for further evaluation of the symptoms. I discussed with the patient/guardian the need to see the parking line painter for further evaluation of the symptoms. I discussed with the patient/guardian the need to see the primary care provider for further evaluation of the symptoms. 04:50 ED course: Patient has been ambulatory without assistance to bathroom during visit here.rn 09/08 01:56 Order name: CBC with Diff; Complete Time: 03:16 rn 09/08 01:56 Order name: CMP; Complete Time: 03:16 rn 09/08 01:56 Order name: Lipase; Complete Time: 03:16 rn 09/08 01:56 Order name: CT Abd/Pelvis - IV Contrast Only rn 09/08 01:56 Order name: IV Saline Lock; Complete Time: 01:59 rn 09/08 01:56 Order name: Labs collected and sent; Complete Time: 01:59 rn Administered Medications: 02:14 Drug: Ondansetron IVP 4 mg IVP once; over 2 minutes Route: IVP; Site: left antecubital; rv 05:01 Follow up: Response: No adverse reaction; Marked relief of symptoms rv 02:14 Drug: morphine IVP or IV 4 mg IVP once over 4 mins Route: IVP; Infused Over: 4 mins; rv Site: left antecubital; 05:01 Follow up: Response: No adverse reaction; Marked relief of symptoms rv 02:14 Drug: Gabapentin PO 300 mg PO once Route: PO; rv 05:01 Follow up: Response: No adverse reaction; Marked relief of symptoms rv 04:39 Drug: Ketorolac IVP 30 mg IVP once Route: IVP; Site: left antecubital; rv 05:00 Follow up: Response: No adverse reaction; Marked relief of symptoms rv Disposition Summary: 09/09/23 04:45 Discharge Ordered Notes: Location: Home rn Problem: an ongoing problem rn Symptoms: have improved rn Condition: Stable rn Diagnosis - Wedge compression fracture of unspecified lumbar vertebra - L3 rn Followup: rn - With: Private Physician - When: As needed - Reason: Recheck today's complaints, Re-evaluation by your physician Discharge Instructions: - Discharge Summary Sheet rn - Spinal Compression Fracture rn - Form - Excuse from Work, School, or Physical Activity kmf Forms: - Medication Reconciliation Form rn - Thank You Letter rn - Antibiotic furnace hand - Prescription Opioid Use rn - Patient Portal Instructions rn - Leadership Thank You Letter rn Prescriptions: - gabapentin 100 mg Oral capsule - take 1 capsule ORAL route every 12 hours As needed; 14 capsule; Refills: 0, rn Product Selection Permitted - Tramadol 50 mg Oral Tablet - take 1 tablet ORAL route every 8 hours as needed; 12 tablet; Refills: 0, rn Product Selection Permitted Signatures: Dispatcher [employer] EDMS Momo Up MD MD rn Vicente, Ronaldo, RN RN rv Corrections: (The following items were deleted from the chart) 01:57 01:56 CBC+H.LAB.BRZ ordered. EDMS EDMS 01:57 01:56 COMPREHENSIVE METABOLIC PANEL+C.LAB.BRZ ordered. EDMS EDMS 01:57 01:56 LIPASE+C.LAB.BRZ ordered. EDMS EDMS
--- NOTE | 2023-09-09 04:46 | ER ---
Nurse's Notes [facility] Name: Kianna Horton Age: 57 yrs Sex: Female : 1965 Arrival Date: 09/09/2023 Time: 01:52 Bed 19 Private MD: Diagnosis: Wedge compression fracture of unspecified lumbar vertebra-L3 Presentation: 09/08 01:55 Chief complaint: EMS states: COMPLAINING OF BACK PAIN AFTER HELPING A FRIEND MOVE A BED rv THE OTHER DAY. HX OF DISC PROBLEMS. DENIES ANY INJURY. Coronavirus screen: At this time, the client does not indicate any symptoms associated with coronavirus-19. Ebola Screen: No symptoms or risks identified at this time. Initial Sepsis Screen: Does the patient meet any 2 criteria? No. Patient's initial sepsis screen is negative. Does the patient have a suspected source of infection? No. Patient's initial sepsis screen is negative. Risk Assessment: Do you want to hurt yourself or someone else? Patient reports no desire to harm self or others. Onset of symptoms was September 09, 2023. 01:55 Method Of Arrival: EMS: [facility] rv 01:55 Acuity: ANGELICA 3 rv Triage Assessment: 01:56 General: Appears uncomfortable, Behavior is calm, cooperative. Pain: Complains of pain rv in back. Neuro: Level of Consciousness is awake, alert, obeys commands, Oriented to person, place, time, situation. Cardiovascular: Capillary refill < 3 seconds Patient's skin is warm and dry. Respiratory: Airway is patent Respiratory effort is even, unlabored, Breath sounds are clear bilaterally. GI: No signs and/or symptoms were reported involving the gastrointestinal system. : No signs and/or symptoms were reported regarding the genitourinary system. Musculoskeletal: Reports pain in back. Historical: - Allergies: 01:56 No Known Allergies; rv - PMHx: 01:56 Anxiety; Hypertension; ulcerative colitis; rv - Immunization history:: Adult Immunizations up to date. - Social history:: Smoking status: Patient denies any tobacco usage or history of. - Family history:: not pertinent. - Hospitalizations: : No recent hospitalization is reported. Screenin:57 [facility] ED Fall Risk Assessment (Adult) History of falling in the last 3 months, rv including since admission No falls in past 3 months (0 pts) Score/Fall Risk Level 0 - 2 = Low Risk Oriented to surroundings, Maintained a safe environment, Educated pt \T\ family on fall prevention, incl call for assistance when getting out of bed, Assessed \T\ reinforced patient's understanding of fall precautions. Abuse screen: Denies threats or abuse. Denies injuries from another. Nutritional screening: No deficits noted. Tuberculosis screening: No symptoms or risk factors identified. Vital Signs: 01:55 BP 157 / 91; Pulse 89; Resp 18; Temp 98; Pulse Ox 99% ; rv 05:00 BP 168 / 89; Pulse 88; Resp 18; Temp 98; Pulse Ox 97% on R/A; rv Mark Coma Score: 05:00 Eye Response: spontaneous(4). Motor Response: obeys commands(6). Verbal Response: rv oriented(5). Total: 15. ED Course: 01:55 Patient arrived in ED. rv 01:55 Momo Up MD is Attending Physician. rn 01:56 Triage completed. rv 01:56 Arm band placed on right wrist. rv 01:57 Patient has correct armband on for positive identification. Client placed on continuous rv cardiac and pulse oximetry monitoring. NIBP monitoring applied. 01:57 Door closed. Noise minimized. Moved to private room. Warm blanket given. socks. pf1 01:57 No provider procedures requiring assistance completed. rv 02:14 CBC with Diff Sent. rv 02:14 CMP Sent. rv 02:14 Lipase Sent. rv 02:15 Initial lab(s) drawn, by me, sent to lab. Inserted saline lock: 22 gauge in left rv antecubital area, using aseptic technique. Blood collected. 03:23 CT Abd/Pelvis - IV Contrast Only In Process Unspecified. EDMS 04:59 IV discontinued, intact, bleeding controlled, No redness/swelling at site. Pressure rv dressing applied. Administered Medications: 02:14 Drug: Ondansetron IVP 4 mg IVP once; over 2 minutes Route: IVP; Site: left antecubital; rv 05:01 Follow up: Response: No adverse reaction; Marked relief of symptoms rv 02:14 Drug: morphine IVP or IV 4 mg IVP once over 4 mins Route: IVP; Infused Over: 4 mins; rv Site: left antecubital; 05:01 Follow up: Response: No adverse reaction; Marked relief of symptoms rv 02:14 Drug: Gabapentin PO 300 mg PO once Route: PO; rv 05:01 Follow up: Response: No adverse reaction; Marked relief of symptoms rv 04:39 Drug: Ketorolac IVP 30 mg IVP once Route: IVP; Site: left antecubital; rv 05:00 Follow up: Response: No adverse reaction; Marked relief of symptoms rv Medication: 01:57 VIS not applicable for this client. rv Outcome: 04:45 Discharge ordered by . rn 04:59 Discharged to home ambulatory, rv 04:59 Condition: good 04:59 Discharge instructions given to patient, Instructed on discharge instructions, follow up and referral plans. medication usage, Demonstrated understanding of instructions, follow-up care, medications, Prescriptions given X 2, 05:01 Patient left the ED. rv Signatures: Dispatcher [employer] EDMS Momo Up MD MD rn Vicente, Ronaldo RN RN rv Elena Vasques RN RN pf1
[2023-09-09 10:04] VITALS: BP 168/89; TEMP 98; O2SAT 97
--- NOTE | 2023-09-09 11:07 | RAD REPORT ---
EXAM DESCRIPTION: CT - Abdomen Pelvis W Contrast - 09/09/2023 6:51 am CLINICAL HISTORY: Back pain COMPARISON: 05/17/2021 TECHNIQUE: Contiguous axial images of the abdomen and pelvis were obtained after the administration of intravenous contrast followed by reconstruction images.This exam was performed according to our de partmental dose-optimization program, which includes automated exposure control, adjustment of the mA and/or kV according to patient size and/or use of iterative reconstruction technique. FINDINGS: There is mild compression deformity of the superior endplate of the L3 vertebral body, new finding when compared with the prior exam. Linear opacities within the lungs may represent scar versus subsegmental atelectasis. Calcifications within the pelvis compatible phleboliths. There are degenerative changes of lumbar spine. Stomach is distended with fluid/presume food material. The liver, spleen, pancreas and kidneys are within normal limits. There is no hydronephrosis or renal stones. The gallbladder is unremarkable by CT criteria. Adrenal glands are within normal limits. Aor ta is of normal caliber and tapering. There is no free fluid in the abdomen or pelvis. There is no isabel wel obstruction. There is no stranding of the mesenteric fat to suggest an inflammatory response. The appendix is within normal limits. There is no pericecal inflammation. IMPRESSION: Mild compression deformity of the superior endplate of the L3 vertebral body, new findin g when compared with the prior exam. Electronically signed by: Greg Lechuga MD 09/09/2023 04:03 AM CDT Due to temporary technical issues with the PACS/Fluency reporting system, reports are being signed by the in house radiologist without review as a courtesy to ensure prompt reporting. The interpreting r adiologist is fully responsible for the content of the report.
== END 2023-09-09 05:01 | disposition home or self-care (01) ==
LOC: ER 01:52
DX: S32.030A Wedge compression fracture of third lumbar vertebra, initial encounter for closed fracture (principal)
CPT/HCPCS: 85025; 36415; 83690; 80053; 74177; 96375; 96374; 99285; Q9967; J2405

== ENCOUNTER 2023-09-14 15:03 | Emergency (ER) | payer OTHER ==
[2023-09-14] MEDS ORDERED: HYDROCODONE/APAP 7.5/325 MG TAB ONE (15:29)
[2023-09-14] MEDS ORDERED: DIAZEPAM 5 MG TABLET ONE (15:29)
--- NOTE | 2023-09-14 15:32 | ER ---
Nurse's Notes [facility] Name: Kianna Horton Age: 57 yrs Sex: Female : 1965 Arrival Date: 09/14/2023 Time: 15:03 Bed IW1 Private MD: Diagnosis: Low back pain-L3 compression fracture Presentation: 09/13 15:18 Chief complaint: Patient states: Back pain for years. Seen here 4-5 days ago, states CT nj1 scan showed a fracture and wants someone to fix it. Has not seen her PCP. Coronavirus screen: Vaccine status: Patient reports receiving the 2nd dose of the covid vaccine. Ebola Screen: Patient denies travel to an Ebola-affected area in the 21 days before illness onset. Initial Sepsis Screen: Does the patient meet any 2 criteria? HR > 90 bpm. No. Patient's initial sepsis screen is negative. Does the patient have a suspected source of infection? No. Patient's initial sepsis screen is negative. Risk Assessment: Do you want to hurt yourself or someone else? Patient reports no desire to harm self or others. Onset of symptoms. 15:18 Method Of Arrival: Wheelchair [facility] 15:18 Acuity: ANGELICA 3 [facility] Triage Assessment: 15:25 General: Appears in no apparent distress. uncomfortable, Behavior is calm, cooperative, nj appropriate for age. Historical: - Allergies: 15:20 No Known Allergies; nj1 - PMHx: 15:20 Anxiety; Hypertension; ulcerative colitis; nj1 - Immunization history:: Client reports receiving the 2nd dose of the Covid vaccine. - Infectious Disease History:: Denies. - Social history:: Smoking status: Patient reports the use of cigarette tobacco products, smokes one-half pack cigarettes per day. Vital Signs: 15:18 BP 118 / 78; Pulse 119; Resp 18; Temp 98.1(TE); Pulse Ox 100% ; Weight 51.26 kg; Height nj 5 ft. 0 in. ; Pain 10/10; 15:18 Body Mass Index 22.07 (51.26 kg, 152.4 cm) [facility] 15:18 Pain Scale: Adult [facility] ED Course: 15:06 Patient arrived in ED. rg4 15:20 Triage completed. [facility] 15:21 Petra Faye FNP-C is PHCP. kb 15:21 Wallace Lemons MD is Attending Physician. kb 15:21 Arm band placed on left wrist. nj1 15:37 No provider procedures requiring assistance completed. Patient did not have IV access nj1 during this emergency room visit. Administered Medications: 15:33 Drug: Diazepam PO 5 mg PO once Route: PO; nj1 15:33 Drug: Hydrocodone-Acetaminophen PO (7.5 mg-325 mg) 1 tabs PO once Route: PO; nj1 Outcome: 15:31 Discharge ordered by . kb 15:36 Patient left the ED. nj1 15:36 Discharged to home via wheelchair, nj1 15:36 Condition: stable 15:36 Discharge instructions given to patient, Instructed on discharge instructions, follow up and referral plans. Demonstrated understanding of instructions, follow-up care, Signatures: Petra Faye, [employer] PROGRAMMING LEAD-C [employer]GRAMMING LEAD-Christel Polanco rg4 Yas Red, RN RN nj1
--- NOTE | 2023-09-14 15:32 | EDPHYS ---
Physician Documentation [facility] Name: Kianna Horton Age: 57 yrs Sex: Female : 1965 Arrival Date: 09/14/2023 Time: 15:03 Bed IW1 Private MD: ED Physician Wallace Lemons HPI: 09/13 17:19 This 57 yrs old Female presents to ER via Wheelchair with complaints of Back kb Pain. 17:19 Pt is a 57 year old female who presents for low back pain that is chronic but got worse kb recently. States she was diagnosed with a compression fracture in her lumbar spine and was told to follow up. Pt has an appt with a Charlette Redmond spine dr but it isn't for a few weeks. Came in today because she wants it fixed now. Denies numbness, tingling. States she can walk, but the pain is worse with ambulation. . Historical: - Allergies: 15:20 No Known Allergies; nj1 - PMHx: 15:20 Anxiety; Hypertension; ulcerative colitis; nj1 - Immunization history:: Client reports receiving the 2nd dose of the Covid vaccine. - Infectious Disease History:: Denies. - Social history:: Smoking status: Patient reports the use of cigarette tobacco products, smokes one-half pack cigarettes per day. ROS: 17:18 Constitutional: As per HPI kb Exam: 17:18 Constitutional: This is a well developed, well nourished patient who is awake, alert, kb and in no acute distress. Head/Face: Normocephalic, atraumatic. ENT: Moist Mucous membranes Cardiovascular: Regular rate Respiratory: Respirations even and unlabored. No increased work of breathing. Talking in full sentences Abdomen/GI: Soft, non-tender. No distention Skin: Warm, dry with normal turgor. Normal color. MS/ Extremity: Pulses equal, no cyanosis. Neurovascular intact. Full, normal range of motion. Neuro: Awake and alert, GCS 15, oriented to person, place, time, and situation. Moves all extremities. Normal gait. 17:18 Back: pain, that is moderate, of the lumbar area, Vital Signs: 15:18 BP 118 / 78; Pulse 119; Resp 18; Temp 98.1(TE); Pulse Ox 100% ; Weight 51.26 kg; Height nj1 5 ft. 0 in. ; Pain 10/10; 15:18 Body Mass Index 22.07 (51.26 kg, 152.4 cm) nj 15:18 Pain Scale: Adult nj1 MDM: 15:21 Patient medically screened. kb 17:18 Differential diagnosis: fracture, strain. Data reviewed: vital signs, nurses notes. kb Test considered but Not performed: X-ray: lumbar x-ray considered but pt was recently seen and diagnosed with a compression fracture and has not had an trauma since then. Counseling: I had a detailed discussion with the patient and/or guardian regarding the historical points, exam findings, and any diagnostic results supporting the discharge/admit diagnosis, the need for outpatient follow up, a family practitioner, to return to the emergency department if symptoms worsen or persist or if there are any questions or concerns that arise at home. Administered Medications: 15:33 Drug: Diazepam PO 5 mg PO once Route: PO; [facility] 15:33 Drug: Hydrocodone-Acetaminophen PO (7.5 mg-325 mg) 1 tabs PO once Route: PO; [facility] Disposition Summary: 09/14/23 15:31 Discharge Ordered Notes: Location: Home kb Condition: Stable kb Diagnosis - Low back pain - L3 compression fracture kb Followup: kb - With: Emergency Department - When: As needed - Reason: Worsening of condition Followup: kb - With: Private Physician - When: 2 - 3 days - Reason: Recheck today's complaints, Continuance of care, Re-evaluation by your physician Discharge Instructions: - Discharge Summary Sheet kb - Spinal Compression Fracture kb Forms: - Medication Reconciliation Form kb - Thank You Letter kb - Antibiotic Education kb - Prescription Opioid Use kb - Patient Portal Instructions kb - Leadership Thank You Letter kb Signatures: Petra Faye, AILEEN-C AILEEN-Yas Sanders, RN RN nj1
[2023-09-14 20:49] VITALS: BP 118/78; TEMP 98.1; O2SAT 100
== END 2023-09-14 15:36 | disposition home or self-care (01) ==
LOC: ER 15:03
DX: S32.039A Unspecified fracture of third lumbar vertebra, initial encounter for closed fracture (principal); F17.210 Nicotine dependence, cigarettes, uncomplicated
CPT/HCPCS: 99283

== ENCOUNTER 2023-09-16 07:42 | Emergency (ER) | payer OTHER ==
[2023-09-16] MEDS ORDERED: HYDROCODONE/APAP 7.5/325 MG TAB ONE (08:07)
[2023-09-16] MEDS ORDERED: DIAZEPAM 5 MG TABLET ONE (08:07)
--- NOTE | 2023-09-16 08:15 | EDPHYS ---
Physician Documentation [facility] Name: Kianna Hortno Age: 57 yrs Sex: Female : 1965 Arrival Date: 09/16/2023 Time: 07:42 Bed 16 Private MD: ED Physician Taco Bah HPI: 09/15 08:04 This 57 yrs old Female presents to ER via EMS with complaints of Low Back Pain.ms3 08:04 57-year-old female with past medical history of anxiety, hypertension, ulcerative ms3 colitis presents to the emergency department for low back pain that has been ongoing for 8 days. Patient was seen previously in the emergency department diagnosed with L3 compression fracture. Patient states she has an appointment with spine this morning at 9 AM. Patient states her pain is a 10/10. Patient denies urinary or bowel incontinence, weakness, numbness. Patient denies any alleviating or inciting factors. Patient states she did not take her morning medications.. Historical: - Allergies: 07:48 No Known Allergies; iw - PMHx: 07:48 Anxiety; Hypertension; ulcerative colitis; iw - Immunization history:: Adult Immunizations up to date. - Infectious Disease History:: Denies. - Social history:: Smoking status: Patient reports the use of cigarette tobacco products, smokes one-half pack cigarettes per day. ROS: 08:04 Constitutional: Negative for fever, and chills. Neck: Negative for injury, pain, and ms3 swelling, Cardiovascular: Negative for chest pain, and palpitations. Respiratory: Negative for shortness of breath, cough, wheezing, and pleuritic chest pain, Abdomen/GI: Negative for abdominal pain, nausea, vomiting, diarrhea, and constipation, MS/Extremity: Negative for injury and deformity, Skin: Negative for injury, rash, and discoloration, Exam: 08:04 Constitutional: This is a well developed, well nourished patient who is awake, alert, ms3 and in no acute distress. Head/Face: Normocephalic, atraumatic. Neck: Trachea midline, no cervical lymphadenopathy. Supple, full range of motion without nuchal rigidity, or vertebral point tenderness. No Meningismus. Chest/axilla: Normal chest wall appearance and motion. Nontender with no deformity. Cardiovascular: Regular rate and rhythm with a normal S1 and S2. No gallops, murmurs, or rubs. Normal PMI, no JVD. No pulse deficits. Respiratory: Lungs have equal breath sounds bilaterally, clear to auscultation and percussion. No rales, rhonchi or wheezes noted. No increased work of breathing, no retractions or nasal flaring. Abdomen/GI: Soft, non-tender, with normal bowel sounds. No distension or tympany. No guarding or rebound. No evidence of tenderness throughout. Skin: Warm, dry with normal turgor. Normal color with no rashes, no lesions, and no evidence of cellulitis. 08:04 Back: pain, that is severe, of the lumbar area, left low back and right low back, ROM is normal, Vital Signs: 07:49 BP 160 / 113; Pulse 94; Resp 18; Temp 97.8; Pulse Ox 100% on R/A; Pain 10/10; iw 08:37 BP 159 / 102; Pulse 95; Resp 18; Pulse Ox 100% on R/A; Pain 7/10; ld1 07:49 Pain Scale: Adult iw 08:37 Pain Scale: Adult ld1 MDM: 08:04 Differential diagnosis: arthritis, fracture. Data reviewed: vital signs, nurses notes, ms3 and as a result, I will discharge patient. 08:12 Patient medically screened. ms3 Administered Medications: 08:09 Drug: Hydrocodone-Acetaminophen PO (7.5 mg-325 mg) 2 tabs PO once Route: PO; bm8 08:09 Drug: Diazepam PO 5 mg PO once Route: PO; bm8 Disposition Summary: 09/16/23 08:14 Discharge Ordered Notes: Location: Home ms3 Condition: Stable ms3 Diagnosis - Wedge compression fracture of unspecified lumbar vertebra - L3 ms3 - Low back pain ms3 Followup: ms3 - With: Private Physician - When: Today - Reason: Recheck today's complaints Discharge Instructions: - Discharge Summary Sheet ms3 - Acute Back Pain, Adult ms3 - Chronic Back Pain ms3 Forms: - Medication Reconciliation Form ms3 - Thank You Letter ms3 - Antibiotic Education ms3 - Prescription Opioid Use ms3 - Patient Portal Instructions ms3 - Leadership Thank You Letter ms3 Signatures: Priya Hartman RN RN iw Taco Bah DO DO ms3 Bebe Bah RN RN ld1 Ramesh Oliva RN RN bm8 Corrections: (The following items were deleted from the chart) 08:16 08:04 57-year-old female with past medical history of anxiety, hypertension, ulcerative ms3 colitis presents to the emergency department for low back pain that has been ongoing for 8 days. Patient was seen previously in the emergency department diagnosed with L3 compression fracture. Patient states she has an appointment with spine this morning at 9 AM. Patient states his pain is a 10/10. Patient denies any alleviating or inciting factors. Patient states she did not take her morning medications.. ms3
--- NOTE | 2023-09-16 08:15 | ER ---
Nurse's Notes [facility] Name: Kianna Horton Age: 57 yrs Sex: Female : 1965 Arrival Date: 09/16/2023 Time: 07:42 Bed 16 Private MD: Diagnosis: Wedge compression fracture of unspecified lumbar vertebra-L3;Low back pain Presentation: 09/15 07:45 Chief complaint: EMS states: c/o low back pain yesterday , hx of compression fracture, iw has been seen in ER a couple times this week, feels like she has sciatic nerve pain. Coronavirus screen: At this time, the client does not indicate any symptoms associated with coronavirus-19. Risk Assessment: Do you want to hurt yourself or someone else? Patient reports no desire to harm self or others. 07:45 Method Of Arrival: EMS: [facility] iw 07:45 Acuity: ANGELICA 3 iw 08:39 Ebola Screen: No symptoms or risks identified at this time. Initial Sepsis Screen: Does ld1 the patient meet any 2 criteria? No. Patient's initial sepsis screen is negative. Does the patient have a suspected source of infection? No. Patient's initial sepsis screen is negative. Onset of symptoms was September 16, 2023. Triage Assessment: 07:49 General: Appears uncomfortable, Behavior is anxious. Pain: Complains of pain in lumbar iw area, left low back and right low back Pain radiates to right leg and left leg Pain currently is 10 out of 10 on a pain scale. Historical: - Allergies: 07:48 No Known Allergies; iw - PMHx: 07:48 Anxiety; Hypertension; ulcerative colitis; iw - Immunization history:: Adult Immunizations up to date. - Infectious Disease History:: Denies. - Social history:: Smoking status: Patient reports the use of cigarette tobacco products, smokes one-half pack cigarettes per day. Screenin:37 [facility] ED Fall Risk Assessment (Adult) History of falling in the last 3 months, ld1 including since admission No falls in past 3 months (0 pts). Abuse screen: Denies threats or abuse. Denies injuries from another. Nutritional screening: No deficits noted. Tuberculosis screening: No symptoms or risk factors identified. Assessment: 08:37 General: Appears in no apparent distress. uncomfortable, Behavior is cooperative, ld1 appropriate for age, anxious. Pain: Complains of pain in left leg and right leg and back and right low back and left low back and lumbar area Pain does not radiate. Pain currently is 7 out of 10 on a pain scale. Quality of pain is described as throbbing, Pain began gradually, Is continuous, chronic. Neuro: Level of Consciousness is awake, alert, obeys commands, Oriented to person, place, time, situation. Cardiovascular: Capillary refill < 3 seconds Patient's skin is warm and dry. Respiratory: Airway is patent Respiratory effort is even, unlabored. GI: Abdomen is round non-distended. : No signs and/or symptoms were reported regarding the genitourinary system. EENT: No signs and/or symptoms were reported regarding the EENT system. Derm: No signs and/or symptoms reported regarding the dermatologic system. Musculoskeletal: No signs and/or symptoms reported regarding the musculoskeletal system. Vital Signs: 07:49 BP 160 / 113; Pulse 94; Resp 18; Temp 97.8; Pulse Ox 100% on R/A; Pain 10/10; iw 08:37 BP 159 / 102; Pulse 95; Resp 18; Pulse Ox 100% on R/A; Pain 7/10; ld1 07:49 Pain Scale: Adult iw 08:37 Pain Scale: Adult ld1 ED Course: 07:44 Patient arrived in ED. iw 07:47 Triage completed. iw 07:49 Taco Bah DO is Attending Physician. ms3 07:49 Arm band placed on. iw 08:04 Ramesh Oliva, RN is Primary Nurse. bm8 08:14 Taco Bah DO is Referral Physician. ms3 08:14 Referral Physician role handed off by Taco Bah DO ms3 08:37 Patient has correct armband on for positive identification. Placed in gown. Bed in low ld1 position. Call light in reach. Side rails up X2. classroom monitor on. Pulse ox on. NIBP on. Door closed. Noise minimized. Warm blanket given. 08:37 No provider procedures requiring assistance completed. Patient did not have IV access ld1 during this emergency room visit. 08:39 Provided Education on: pain management, follow up instructions. . ld1 Administered Medications: 08:09 Drug: Hydrocodone-Acetaminophen PO (7.5 mg-325 mg) 2 tabs PO once Route: PO; bm8 08:09 Drug: Diazepam PO 5 mg PO once Route: PO; bm8 Medication: 08:37 VIS not applicable for this client. ld1 Outcome: 08:14 Discharge ordered by . ms3 08:37 Discharged to home ambulatory, ld1 08:37 Condition: stable 08:37 Discharge instructions given to patient, Instructed on discharge instructions, follow up and referral plans. Demonstrated understanding of instructions, follow-up care, 08:40 Patient left the ED. ld1 Signatures: Priya Hartman, RN RN iw Taco Bah, DO ms3 Bebe Bah RN RN ld1 Ramesh Oliva, RN RN bm8
[2023-09-16 15:10] VITALS: BP 159/102; TEMP 97.8; O2SAT 100
== END 2023-09-16 08:40 | disposition home or self-care (01) ==
LOC: ER 07:42
DX: M48.56XA Collapsed vertebra, not elsewhere classified, lumbar region, initial encounter for fracture (principal); F17.210 Nicotine dependence, cigarettes, uncomplicated
CPT/HCPCS: 99284

== ENCOUNTER 2024-05-26 11:13 | Emergency (ER) | payer OTHER ==
[2024-05-26] MEDS ORDERED: NA CHLORIDE 0.9% 1,000 ML ONE ×2 (11:33→14:33)
[2024-05-26 12:04] LABS: Absolute Lymphocytes (CBC) 0.4 K/uL (0.7-4.9); Absolute Monocytes 0.5 K/uL (0.1-1.3); Absolute Neutrophil 13.6 K/uL (1.8-8.0); Basophils % 0.2 % (0-1.3); Eosinophils % 0.1 % (0-4.4); Hemoglobin 7.6 g/dL (12.0-15.0); Lymphocytes % 2.8 % (15.3-44.8); MCH 24.6 pg (27.0-35.0); MCHC 30.4 g/dL (32.0-36.0); MCV 81.1 fL (80-100); MPV 7.1 fL (7.6-11.3); Monocytes % 3.1 % (3.3-12.3); Neutrophils % 93.8 % (41.7-73.7); Nucleated Red Blood Cells % 0.1 % (0-0); Platelets 849 thou/uL (152-406); RBC Red Blood Cell Count 3.08 M/uL (3.86-4.86); Red Cell Distribution Width 17.1 % (12.1-15.2)
[2024-05-26 12:07] LABS: PT Prothrombin Time 11.8 SECONDS (9.4-12.5); PTT, Activated Partial Thromb 27.8 SECONDS (24.3-36.9); Protime INR 1.06
[2024-05-26 12:18] LABS: Albumin 2.7 g/dL (3.4-5.0); Albumin/Globulin Ratio 0.8 (1.1-1.8); Anion Gap 9.4 mEq/L (5.0-15.0); Bilirubin Total 0.3 mg/dL (0.2-1.0); Globulin 3.2 g/dL (2.3-3.5); Potassium 4.4 mEq/L (3.5-5.1); Protein, Total 5.9 g/dL (6.4-8.2)
[2024-05-26 12:57] LABS: Anisocytosis 1+; Blood Morphology Comment NOTED (NOT SEEN); Hypochromasia 1+; Microcytosis 1+; Platelet Estimate ADEQ; Platelets Clumped FEW; White Blood Cell Scan OK (OK)
--- NOTE | 2024-05-26 13:05 | RAD REPORT ---
EXAM: Chest Abdomen Pelvis W Cont CLINICAL INDICATION: Cough. Abdominal pain Back Pain TECHNIQUE: CT chest, abdomen and pelvis was performed, with 100 cc Isovue-300 IV contrast, as per de partment protocol. Axial, sagittal and coronal reconstructions were obtained. One or more of the following dose reduction techniques were used: Automated exposure control, adjustment of the mA and/o r kV according to the patient size, and/or iterative reconstruction. Unless otherwise specified, incidental findings do not require dedicated imaging follow-up. [id number]. Oral contrast not given. This limits evaluation of the bowel. COMPARISON: September 2023 FINDINGS: Lungs are clear. No mediastinal or hilar lymphadenopathy seen. No pleural effusion.. No pericardial effusion Liver, spleen, pancreas, adrenals, kidneys and bladder appear unremarkable. There is no evidence of diverticulitis Normal appendix Development of a mild compression deformity L1 vertebral body. Pedicular screws united by rods placed L5-S2.. Artifact from the hardware does obscure evaluation of portions of the spine. Lucencies within the L5 vertebra presumably are related to pedicular screws placed and then removed. This should be correlated clinically. Along the right and left superior aspects of the L5 endplate are lucencies having the appearance of nondisplaced fractures. The patient is status post recent back surgery. A drain is in place posteriorly. Ill-defined soft tis alisa is present within the posterior aspect of the lumbar spine IMPRESSION: Development of a mild compression fracture L1 vertebral body probably subacute. Post surgical changes involving the lumbar spine and sacrum. Hardware obscures evaluation of portions of the spine. Nondisplaced fractures superior vertebral plate L5 suspected. No obvious abscess visualized although the evaluation is limited.
--- NOTE | 2024-05-26 14:30 | ER ---
Nurse's Notes [facility] Name: Kianna Horton Age: 58 yrs Sex: Female : 1965 Arrival Date: 05/26/2024 Time: 11:13 Bed 2 Private MD: Diagnosis: Hypotension, unspecified;Low back pain Presentation: 05/26 11:29 Chief complaint: EMS states: they were toned out by home health nurse for low BP. pt kc6 reports recently having back surgery at [facility] x2 weeks ago. Coronavirus screen: At this time, the client does not indicate any symptoms associated with coronavirus-19. Ebola Screen: No symptoms or risks identified at this time. Initial Sepsis Screen: Does the patient meet any 2 criteria? Systolic BP < 90 mmHg. Does the patient have a suspected source of infection? No. Patient's initial sepsis screen is negative. Risk Assessment: Do you want to hurt yourself or someone else? Patient reports no desire to harm self or others. Onset of symptoms was May 26, 2024. 11:29 Method Of Arrival: EMS: [facility] kc6 11:29 Acuity: ANGELICA 2 kc6 Triage Assessment: 11:13 General: Appears in no apparent distress. uncomfortable, slender, well groomed, well kc6 developed, Behavior is calm, cooperative, appropriate for age. Pain: Complains of pain in back Pain does not radiate. Pain currently is 10 out of 10 on a pain scale. EENT: No signs and/or symptoms were reported regarding the EENT system. Neuro: Level of Consciousness is awake, alert, obeys commands, Oriented to person, place, time, situation, Appropriate for age. Cardiovascular: Capillary refill < 3 seconds. Respiratory: Airway is patent Trachea midline Respiratory effort is even, unlabored, Respiratory pattern is regular, symmetrical. GI: No signs and/or symptoms were reported involving the gastrointestinal system. : No signs and/or symptoms were reported regarding the genitourinary system. Derm: Skin is healthy with good turgor, Skin is dry, Skin is pink, warm \T\ dry. Skin temperature is warm pt appears to have two RAJIV drains with sanguineous drainage to the left lower back area. Musculoskeletal: Circulation, motion, and sensation intact. Capillary refill < 3 seconds, Range of motion: intact in all extremities. Historical: - Allergies: 11:30 No Known Allergies; kc6 - PMHx: 11:30 Anxiety; Degenerative disc disease (ulcerative colitis); Hypertension; ulcerative kc6 colitis; - Immunization history:: Adult Immunizations up to date. - Infectious Disease History:: Denies. - Social history:: Smoking status: Patient reports the use of cigarette tobacco products, denies chronic smoking, but will smoke occasionally, Reported history of juuling and/or vaping. - Family history:: not pertinent. - Hospitalizations: : Patient was recently seen at. Screenin:31 [facility] ED Fall Risk Assessment (Adult) History of falling in the last 3 months, kc6 including since admission No falls in past 3 months (0 pts) Confusion or Disorientation No (0 pts) Intoxicated or Sedated No (0 pts) Impaired Gait Yes (1 pt) Mobility Assist Device Used Yes (1 pt) Altered Elimination No (0 pt) Score/Fall Risk Level 0 - 2 = Low Risk Oriented to surroundings, Maintained a safe environment. Abuse screen: Denies threats or abuse. Denies injuries from another. Nutritional screening: No deficits noted. Tuberculosis screening: No symptoms or risk factors identified. Assessment: 11:29 Reassessment: please see triage. kc6 12:29 Reassessment: Patient appears in no apparent distress at this time. No changes from [facility] previously documented assessment. Patient and/or family updated on plan of care and expected duration. Pain level reassessed. Patient is alert, oriented x 3, equal unlabored respirations, skin warm/dry/pink. 13:29 Reassessment: Patient appears in no apparent distress at this time. No changes from 6 previously documented assessment. Patient and/or family updated on plan of care and expected duration. Pain level reassessed. Patient is alert, oriented x 3, equal unlabored respirations, skin warm/dry/pink. 14:29 Reassessment: Patient appears in no apparent distress at this time. No changes from kc6 previously documented assessment. Patient and/or family updated on plan of care and expected duration. Pain level reassessed. Patient is alert, oriented x 3, equal unlabored respirations, skin warm/dry/pink. 15:29 Reassessment: Patient appears in no apparent distress at this time. No changes from [facility] previously documented assessment. Patient and/or family updated on plan of care and expected duration. Pain level reassessed. Patient is alert, oriented x 3, equal unlabored respirations, skin warm/dry/pink. 16:29 Reassessment: Patient appears in no apparent distress at this time. No changes from kc6 previously documented assessment. Patient and/or family updated on plan of care and expected duration. Pain level reassessed. Patient is alert, oriented x 3, equal unlabored respirations, skin warm/dry/pink. 17:41 Reassessment: Patient appears in no apparent distress at this time. No changes from kc6 previously documented assessment. Patient and/or family updated on plan of care and expected duration. Pain level reassessed. Patient is alert, oriented x 3, equal unlabored respirations, skin warm/dry/pink. 18:47 Reassessment: Patient appears in no apparent distress at this time. No changes from kc6 previously documented assessment. Patient and/or family updated on plan of care and expected duration. Pain level reassessed. Patient is alert, oriented x 3, equal unlabored respirations, skin warm/dry/pink. attemped to call report to [facility]. states they are unable to take report right now as they are in the middle of shift change. request that we call back in 15-20min. 19:20 General: Appears uncomfortable, Behavior is cooperative. Pain: Complains of pain in ha1 back Pain currently is 8 out of 10 on a pain scale. Quality of pain is described as aching. Neuro: Level of Consciousness is awake, alert, obeys commands, Oriented to person, place, time, situation. Cardiovascular: Capillary refill < 3 seconds. Respiratory: Airway is patent Respiratory effort is even, unlabored, Respiratory pattern is regular, symmetrical. GI: in place, to gravity drainage. Site clean. GTUBE. 19:45 Reassessment: ATTEMPTED TO GIVE REPORT. ha1 19:50 Reassessment: ATTEMPTED TO GIVE REPORT. ha1 20:00 Reassessment: ATTEMPTED TO GIVE REPORT. ha1 20:11 Reassessment: REPORT GIVEN TO RECEIVING NURSE DANISH ANNA. ha1 20:45 Reassessment: Patient and/or family updated on plan of care and expected duration. Pain ha1 level reassessed. Patient is alert, oriented x 3, equal unlabored respirations, skin warm/dry/pink. PAIN 2/10 Patient states feeling better. Patient states symptoms have improved. Vital Signs: 11:29 BP 86 / 54; Pulse 92; Resp 16 S; Temp 97.5(O); Pulse Ox 100% on R/A; Weight 50.8 kg kc6 (R); Height 5 ft. 0 in. (R); 11:32 BP 76 / 60; kc6 12:04 BP 79 / 54; Pulse 74; Resp 16 S; Pulse Ox 100% on R/A; kc6 12:06 BP 82 / 48; kc6 12:19 BP 90 / 62; kc6 14:07 BP 94 / 65; Pulse 79; Resp 18 S; Pulse Ox 99% on R/A; kc6 17:41 BP 102 / 81; Pulse 110; Resp 18 S; Pulse Ox 97% on R/A; kc6 18:48 BP 133 / 82; Pulse 95; Resp 18 S; Pulse Ox 100% on R/A; kc6 19:25 BP 126 / 84; Pulse 93; Resp 19 S; Pulse Ox 100% on R/A; ha1 20:40 BP 122 / 89; Pulse 96; Resp 19 S; Pulse Ox 99% on R/A; ha1 11:29 Body Mass Index 21.87 (50.80 kg, 152.4 cm) 6 ED Course: 11:20 Patient arrived in ED. rn 11:21 Momo Up MD is Attending Physician. rn 11:30 Triage completed. kc6 11:30 Arm band placed on. kc6 11:31 Patient has correct armband on for positive identification. Bed in low position. Call [facility] light in reach. Side rails up X2. cardiac monitor on. Pulse ox on. NIBP on. Door closed. Noise minimized. Lights dimmed. Warm blanket given. Pillow given. 11:31 Patient maintains SpO2 saturation greater than 95% on room air. kc6 11:40 Initial lab(s) drawn, by ms, sent to lab. First set of blood cultures drawn by charline mancia Second set of blood cultures drawn by ms. 11:57 Blood Culture Adult (2) Sent. cc6 11:57 CMP Sent. cc6 11:57 Lactate w/ 2H reflex if indic. Sent. cc6 11:57 Protime (+inr) Sent. cc6 11:57 Ptt, Activated Sent. cc6 11:57 Urinalysis w/ reflexes Sent. cc6 11:57 Inserted saline lock: 20 gauge in left antecubital area, using aseptic technique. Blood cc6 collected. Flushed with 10 mL NS. 12:03 Niki Connor, DANISH is Primary Nurse. kc6 12:44 CT Chest, Abdomen, Pelvis - W/Contrast In Process Unspecified. EDMS 14:42 initiated transfer to [facility]. bd 15:19 Patient requests pain medication. kc6 16:12 Provided Education on: labs, meds. ko1 16:12 No provider procedures requiring assistance completed. ko1 19:00 Report given to DANISH Hutchison \T\ DANISH Cintron. kc6 20:41 Patient transferred, IV remains in place. ha1 Administered Medications: 11:55 Drug: NS 0.9% IV 1000 ml IV at 1000 ml once; to be given as a bolus over 60 minutes kc6 Route: IV; Rate: 1000 ml; Site: left antecubital; 14:07 Follow up: Response: No adverse reaction; IV Status: Completed infusion; IV Intake: kc6 1000ml 14:52 Drug: vancoMYCIN IVPB 1 grams IVPB once over 2 hrs Route: IVPB; Infused Over: 2 hrs; kc6 Site: left antecubital; 17:41 Follow up: Response: No adverse reaction; IV Status: Completed infusion; IV Intake: kc6 250ml 14:52 Drug: NS 0.9% IV 1000 ml IV at 1000 ml once; to be given as a bolus over 60 minutes kc6 Route: IV; Rate: 1000 ml; Site: left antecubital; 17:42 Follow up: Response: No adverse reaction; IV Status: Completed infusion; IV Intake: kc6 1000ml 15:34 Drug: fentaNYL (PF) IVP 25 mcg IVP once Route: IVP; Site: left antecubital; kc6 17:42 Follow up: Response: No adverse reaction; Pain is decreased; RASS: Alert and Calm (0) kc6 20:18 Drug: fentaNYL (PF) IVP 25 mcg IVP once Route: IVP; Site: left antecubital; ha1 20:45 Follow up: Response: No adverse reaction; Marked relief of symptoms; Pain is decreased; ha1 RASS: Alert and Calm (0) Medication: 16:12 VIS not applicable for this client. ko1 Intake: 14:07 IV: 1000ml; Total: 1000ml. kc6 17:41 IV: 250ml; Total: 1250ml. kc6 17:42 IV: 1000ml; Total: 2250ml. kc6 Outcome: 14:30 ER care complete, transfer ordered by . rn 20:40 Transferred by ground EMS to [facility], [facility], Transfer form completed. ha1 X-rays sent w/ patient. Note: TRANSFERRED BY [facility] 20:40 Condition: stable 20:40 Instructed on the need for transfer, Demonstrated understanding of instructions, 20:46 Patient left the ED. ha1 Signatures: Dispatcher [employer] EDMS Yola Rosario Roman, MD MD rn Ayala, Heidy RN RN carli1 Niki Connor RN RN kc6 Gi Franco RN RN ko1 Tanisha Chen cc6 Corrections: (The following items were deleted from the chart) 11:32 11:29 BP 96 / 54; Pulse 92bpm; Resp 16bpm; Spontaneous; Pulse Ox 100% RA; Temp 97.5F kc6 Oral; 50.8 kg Reported; Height 5 ft. 0 in. Reported; BMI: 21.8; kc6 11:59 11:58 Hospitalizations: No recent hospitalization is reported. rn rn 20:46 20:25 BP 122 / 89; Pulse 96bpm; Resp 19bpm; Spontaneous; Pulse Ox 99% RA; ha1 ha1
--- NOTE | 2024-05-26 14:31 | EDPHYS ---
Physician Documentation [facility] Name: Kianna Horton Age: 58 yrs Sex: Female : 1965 Arrival Date: 05/26/2024 Time: 11:13 Bed 2 Private MD: ED Physician Momo Up HPI: 05/26 11:58 This 58 yrs old Female presents to ER via EMS with complaints of Blood rn Pressure Problem. 11:58 Patient reports back surgery 10 days ago. States has been at home with decreased rn appetite and generalized weakness, home health noticed today had low blood pressure and sent her in for evaluation. Patient reports continued pain at site of surgery but not getting any worse. No fever or chills. No infectious symptoms. No weakness of lower extremities. No abdominal pain or vomiting. No diarrhea. No chest pain. No shortness of breath.. Onset: The symptoms/episode began/occurred at an unknown time. Severity of symptoms: At their worst the symptoms were moderate in the emergency department the symptoms are unchanged. The patient has not experienced similar symptoms in the past. Historical: - Allergies: 11:30 No Known Allergies; kc6 - PMHx: 11:30 Anxiety; Degenerative disc disease (ulcerative colitis); Hypertension; ulcerative kc6 colitis; - Immunization history:: Adult Immunizations up to date. - Infectious Disease History:: Denies. - Social history:: Smoking status: Patient reports the use of cigarette tobacco products, denies chronic smoking, but will smoke occasionally, Reported history of juuling and/or vaping. - Family history:: not pertinent. - Hospitalizations: : Patient was recently seen at. ROS: 11:58 Constitutional: Negative for fever, chills, and weight loss, Neck: Negative for injury, rn pain, and swelling, Cardiovascular: Negative for chest pain, palpitations, and edema, Respiratory: Negative for shortness of breath, cough, wheezing, and pleuritic chest pain, Abdomen/GI: Negative for abdominal pain, nausea, vomiting, diarrhea, and constipation, Back: Positive for back pain MS/Extremity: Negative for injury and deformity, Skin: Negative for injury, rash, and discoloration, Neuro: Negative for headache, weakness, numbness, tingling, and seizure, Exam: 11:58 Constitutional: This is a well developed, well nourished patient who is awake, alert, rn and in no acute distress. Head/Face: Normocephalic, atraumatic. ENT: Dry mucous membranes Cardiovascular: Regular rate and rhythm. No pulse deficits. Respiratory: No increased work of breathing, no retractions or nasal flaring. Abdomen/GI: Soft, non-tender MS/ Extremity: Pulses equal, no cyanosis. Neurovascular intact. Full, normal range of motion. Equal circumference. Neuro: Awake and alert, GCS 15, oriented to person, place, time, and situation. Cranial nerves II-XII grossly intact. Motor strength 5/5 in all extremities. Sensory grossly intact. 12:34 ECG was reviewed by the Attending Physician. rn Vital Signs: 11:29 BP 86 / 54; Pulse 92; Resp 16 S; Temp 97.5(O); Pulse Ox 100% on R/A; Weight 50.8 kg kc6 (R); Height 5 ft. 0 in. (R); 11:32 BP 76 / 60; kc6 12:04 BP 79 / 54; Pulse 74; Resp 16 S; Pulse Ox 100% on R/A; kc6 12:06 BP 82 / 48; kc6 12:19 BP 90 / 62; kc6 14:07 BP 94 / 65; Pulse 79; Resp 18 S; Pulse Ox 99% on R/A; kc6 17:41 BP 102 / 81; Pulse 110; Resp 18 S; Pulse Ox 97% on R/A; kc6 18:48 BP 133 / 82; Pulse 95; Resp 18 S; Pulse Ox 100% on R/A; kc6 19:25 BP 126 / 84; Pulse 93; Resp 19 S; Pulse Ox 100% on R/A; ha1 20:40 BP 122 / 89; Pulse 96; Resp 19 S; Pulse Ox 99% on R/A; ha1 11:29 Body Mass Index 21.87 (50.80 kg, 152.4 cm) [facility] MDM: 11:21 Medical Screening Exam initiated rn 14:28 Differential Diagnosis Postoperative infection, dehydration, pneumonia, sepsis. Data rn reviewed: vital signs, nurses notes, lab test result(s), radiologic studies, CT scan, and as a result, I will admit patient. Consideration of Admission/Observation Patient was admitted/placed on observation. Escalation of care including admission/observation considered. Counseling: I had a detailed discussion with the patient and/or guardian regarding the historical points, exam findings, and any diagnostic results supporting the discharge/admit diagnosis, lab results, radiology results, the need for further work-up and treatment in the hospital, the need to transfer to another facility. ED course: Patient still borderline hypotensive despite fluid administration. Current blood pressure is 94/65. Still having a lot of pain. No acute infectious etiology identified at this time. Empiric antibiotics given. Lactate normal. Will attempt to transfer back to [facility] given close proximity to surgery and abnormal hypotension. Patient states normally on the hypertensive side.. 14:28 ED course: I personally spent 35 minutes engaged in work directly related to the rn individual patient's care. This does not include any time spent performing procedures. The patient has been deemed critically ill because of hypotension requiring fluid resuscitation and organization of admission/transfer.. 15:00 ED course: [facility] is excepted patient for transfer but waiting on a bed. They will rn call back when bed is available. 05/26 11:22 Order name: CBC with Diff; Complete Time: 13:18 rn 05/26 11:22 Order name: Blood Culture Adult (2) rn 05/26 11:22 Order name: CMP; Complete Time: 13:18 rn 05/26 11:22 Order name: Lactate w/ 2H reflex if indic.; Complete Time: 13:18 rn 05/26 11:22 Order name: Protime (+inr); Complete Time: 13:18 rn 05/26 11:22 Order name: Ptt, Activated; Complete Time: 13:18 rn 05/26 11:22 Order name: Urinalysis w/ reflexes; Complete Time: 19:56 rn 05/26 12:58 Order name: CBC Smear Scan; Complete Time: 13:18 EDMS 05/26 11:22 Order name: CT Chest, Abdomen, Pelvis - W/Contrast; Complete Time: 13:18 rn 05/26 11:22 Order name: IV Start; Complete Time: 11:57 rn 05/26 11:22 Order name: Accucheck; Complete Time: 11:55 rn 05/26 11:22 Order name: Cardiac monitoring; Complete Time: 11:32 rn 05/26 11:22 Order name: EKG - Nurse/Tech; Complete Time: 11:42 rn 05/26 11:22 Order name: IV Saline Lock - Large Bore; Complete Time: 11:55 rn 05/26 11:22 Order name: Labs collected and sent; Complete Time: : rn 05/26 11:22 Order name: O2 Per Protocol; Complete Time: : rn 05/26 11:22 Order name: O2 Sat Monitoring; Complete Time: : rn 05/26 11:22 Order name: Vital Signs; Complete Time: : rn 05/26 12:05 Order name: Labs - recollect needed: recollect lactate, [place] on ice; Complete Time: bd 12:35 EC:34 Rate is 88 beats/min. Rhythm is regular. QRS [place] is Normal. RI interval is normal. QRS rn interval is normal. QT interval is normal. No Q waves. T waves are Normal. No ST changes noted. Clinical impression: NSR w/ Non-specific ST/T Changes. Interpreted by me. Reviewed by me. Administered Medications: 11:55 Drug: NS 0.9% IV 1000 ml IV at 1000 ml once; to be given as a bolus over 60 minutes kc6 Route: IV; Rate: 1000 ml; Site: left antecubital; 14:07 Follow up: Response: No adverse reaction; IV Status: Completed infusion; IV Intake: kc6 1000ml 14:52 Drug: vancoMYCIN IVPB 1 grams IVPB once over 2 hrs Route: IVPB; Infused Over: 2 hrs; kc6 Site: left antecubital; 17:41 Follow up: Response: No adverse reaction; IV Status: Completed infusion; IV Intake: kc6 250ml 14:52 Drug: NS 0.9% IV 1000 ml IV at 1000 ml once; to be given as a bolus over 60 minutes kc6 Route: IV; Rate: 1000 ml; Site: left antecubital; 17:42 Follow up: Response: No adverse reaction; IV Status: Completed infusion; IV Intake: kc6 1000ml 15:34 Drug: fentaNYL (PF) IVP 25 mcg IVP once Route: IVP; Site: left antecubital; kc6 17:42 Follow up: Response: No adverse reaction; Pain is decreased; RASS: Alert and Calm (0) kc6 20:18 Drug: fentaNYL (PF) IVP 25 mcg IVP once Route: IVP; Site: left antecubital; ha1 20:45 Follow up: Response: No adverse reaction; Marked relief of symptoms; Pain is decreased; ha1 RASS: Alert and Calm (0) Disposition Summary: 05/26/24 14:30 Transfer Ordered Notes: Transfer Location: [facility] rn Reason: Higher level of care rn Condition: Stable rn Problem: new rn Symptoms: have improved rn Accepting Physician: (05/26/24 20:46) ha1 Diagnosis - Hypotension, unspecified rn - Low back pain rn Forms: - Medication Reconciliation Form rn - SBAR form ornamental plaster sticker time excluding procedures: 14:28 Critical care time: Bedside Care: 35 minutes. Total time: 35 minutes rn Signatures: Dispatcher [employer] EDMS Yola Rosario Roman, MD MD rn Ayala, Heidy, RN RN ha1 Niki Connor RN RN kc6 Corrections: (The following items were deleted from the chart) 11:23 11:22 CBC+H.LAB.BRZ ordered. EDMS EDMS 11:23 11:23 BASIC METABOLIC PANEL+C.LAB.BRZ ordered. EDMS EDMS 11:23 11:23 BLOOD CULTURE*+BA.LAB.BRZ ordered. EDMS EDMS 11:23 11:23 COMPREHENSIVE METABOLIC PANEL+C.LAB.BRZ ordered. EDMS EDMS 11:23 11:23 LACTATE+C.LAB.BRZ ordered. EDMS EDMS 11:23 11:23 PROTIME (+INR)+COAG.LAB.BRZ ordered. EDMS EDMS 11:23 11:23 PTT, ACTIVATED+COAG.LAB.BRZ ordered. EDMS EDMS 11:23 11:23 Urinalysis+U.LAB.BRZ ordered. EDMS EDMS 11:59 11:58 Hospitalizations: No recent hospitalization is reported. rn rn 20:46 14:30 rn ha1
[2024-05-26] MEDS ORDERED: VANCOMYCIN 1 GM/VIAL ONE (14:33)
[2024-05-26] MEDS ORDERED: NA CHLORIDE 0.9% 250 ML ONE (14:33)
[2024-05-26] MEDS ORDERED: FENTANYL CITR 100 MCG/2 ML ONE ×2 (15:25→20:15)
[2024-05-26 16:03] LABS: Specific Gravity 1.027 (1.005-1.030); Urine Bilirubin NEGATIVE (Negative); Urine Blood Negative (Negative); Urine Clarity Clear (Clear); Urine Color Colorless (Yellow); Urine Glucose NEGATIVE (Negative); Urine Ketones NEGATIVE (Negative); Urine Microscopic Reflex YN NO UMIC; Urine Nitrite NEGATIVE (Negative); Urine Protein NEGATIVE (Negative); Urine Urobilinogen Normal (Normal); Urine pH 7.5 (5.0-7.0)
[2024-05-26 21:15] VITALS: TEMP 97.5
[2024-05-26 21:28] VITALS: BP 122/89; O2SAT 99
--- NOTE | 2024-05-28 11:32 | EKG ---
Test Date: 2024-05-26 Test Time: 11:39:32 Layout Designer: PERRY MEASUREMENT RESULTS: Intervals: Rate: 88 OR: 120 QRSD: 92 QT: 370 QTc: 447 [place]: P: 67 OR: 120 QRS: 78 T: 57 INTERPRETIVE STATEMENTS: Sinus rhythm with premature atrial complexes Cannot rule out Anterior infarct, age undetermined Abnormal ECG Compared to ECG 05/17/2017 23:06:25 Atrial premature complex(es) now present Myocardial infarct finding still present Electronically Signed On 05-28-24 11:30:14 CRIBBING SETTER by Mio Gu
== END 2024-05-26 20:46 | disposition short-term general hospital (02) ==
LOC: ER 11:13
DX: I95.9 Hypotension, unspecified (principal); M54.50 Low back pain, unspecified; Z98.890 Other specified postprocedural states
CPT/HCPCS: 96365; 96361; 87040 ×2; 85025; 36415; 85610; 83605; 85730; 81003; 80053; 71260; 74177; 96375; 99285; 96366; Q9967; J3010 ×2; J7050; J7030 ×2; 93005

== ENCOUNTER 2024-09-08 10:24 | Inpatient (IN) | payer OTHER ==
[2024-09-08] MEDS ORDERED: NA CHLORIDE 0.9% 1,000 ML ONE ×2 (10:31→23:01)
[2024-09-08 11:20] LABS: PT Prothrombin Time 11.4 SECONDS (10-13.0)
[2024-09-08 11:35] LABS: ALT/SGPT 35 U/L (13-56); AST/SGOT 20 U/L (15-37); Albumin 3.4 g/dL (3.4-5.0); Albumin/Globulin Ratio 1.2 (1.1-1.8); Alkaline Phosphatase 96 U/L (45-117); Anion Gap 8.9 mEq/L (5.0-15.0); BUN Blood Urea Nitrogen 6 mg/dL (7-18); Bicarbonate 28 mEq/L (21-32); Bilirubin Total 0.2 mg/dL (0.2-1.0); Globulin 2.9 g/dL (2.3-3.5); Glomerular Filtration Rate 57 ml/min (=/>90); Glucose Level 145 mg/dL (74-106); Lipase 45 U/L (13-75); Magnesium 2.3 mg/dL (1.6-2.4); NT PRO-BNP 90 pg/mL (<125); Potassium 3.9 mEq/L (3.5-5.1); Protein, Total 6.3 g/dL (6.4-8.2); Sodium Level 138 mEq/L (136-145); Troponin High Sensitivity 6.5 pg/mL (<58.9)
[2024-09-08 11:39] LABS: Bilirubin Direct < 0.2 mg/dL (0-0.2)
[2024-09-08 11:42] LABS: Absolute Basophils 0.1 K/uL (0-0.5); Absolute Lymphocytes (CBC) 1.1 K/uL (0.7-4.9); Absolute Monocytes 0.3 K/uL (0.1-1.3); Absolute Neutrophil 7.6 K/uL (1.8-8.0); Eosinophils % 0.2 % (0-4.4); Hematocrit 35.7 % (36.0-45.0); Hemoglobin 11.3 g/dL (12.0-15.0); Lymphocytes % 11.6 % (15.3-44.8); MCH 23.5 pg (27.0-35.0); MCHC 31.5 g/dL (32.0-36.0); MCV 74.5 fL (80-100); MPV 7.9 fL (7.6-11.3); Neutrophils % 84.2 % (41.7-73.7); Platelets 350 thou/uL (152-406); Red Cell Distribution Width 20.1 % (12.1-15.2)
--- NOTE | 2024-09-08 11:45 | RAD REPORT ---
EXAMINATION: ONE VIEW CHEST XR CLINICAL INDICATION: Female, 58 years old.,COUGH TECHNIQUE: Frontal chest projection is submitted. Examination is limited by patient positioning and t echnique. COMPARISON: 07/12/2021 FINDINGS: The lungs are well inflated and clear. No pneumothorax or sizable effusion. The heart is normal in s ize. Mediastinal contours are unremarkable. IMPRESSION: No acute intrathoracic abnormalities.
--- NOTE | 2024-09-08 12:13 | RAD REPORT ---
EXAM: CT CHEST, ABDOMEN AND PELVIS WITHOUT CONTRAST CLINICAL INDICATION: Female, 58 years old. [facility] MAIN DIZZY, TRAUMA TECHNIQUE: CT chest, abdomen and pelvis was performed, without IV contrast, as per department protoco l. Axial, sagittal and coronal reconstructions were obtained. One or more of the following dose reduction techniques were used: Automated exposure control, adjustment of the mA and/or kV according to the patient size, and/or iterative reconstruction. Unless otherwise specified, incidental findings do not require dedicated imaging follow-up. COMPARISON: 05/26/2024 FINDINGS: The lack of intravenous contrast limits the sensitivity of this exam for evaluation of solid visceral organs, vascular structures, and retroperitoneum. Chest: LOWER NECK/CHEST WALL: Visualized thyroid gland and soft tissues are normal. LUNGS AND AIRWAYS: Airways are clear. No evidence of airspace or interstitial process. No nodules. PLEURA: No pleural effusion. No pneumothorax. Hemidiaphragms are normally positioned. MEDIASTINUM AND LYMPH NODES: No mediastinal mass or fluid collection. Normal size mediastinal, hilar, and axillary lymph nodes. THORACIC AORTA: Normal caliber and configuration. PULMONARY ARTERIES: Normal caliber. HEART: Unremarkable. Abdomen/Pelvis LIVER: Normal in size and contour. No focal lesion. GALLBLADDER/BILE DUCTS: No biliary ductal dilatation. PANCREAS: No mass, ductal dilation, or nikolas-pancreatic fluid. SPLEEN: Normal size. No focal lesion. ADRENALS: Normal; no mass. KIDNEYS AND URETERS: Normal size and contour. No hydronephrosis. GASTROINTESTINAL TRACT: Stomach is non-dilated. Small bowel has normal course and caliber. No colonic wall thickening or pericolonic inflammatory changes. PERITONEUM: No free fluid. LYMPH NODES: No lymphadenopathy. ABDOMINAL AORTA AND OTHER VESSELS: Normal caliber aorta and IVC. URINARY BLADDER: Normal contour. REPRODUCTIVE ORGANS: No pathologic process. MUSCULOSKELETAL: Sequelae of L2 through sacral fusion with cannulated screws across the SI joints. St able wedge compression deformity at L1. ADDITIONAL FINDINGS: None IMPRESSION: No acute or significant abnormalities in the chest, abdomen, or pelvis. Stable findings as above.
--- NOTE | 2024-09-08 12:18 | RAD REPORT ---
EXAM: CT brain without contrast HISTORY: Dizziness;Trauma COMPARISON: 11/10/2019 TECHNIQUE: Multiple contiguous axial images were obtained and a CT of the brain without contrast. Sag ittal and coronal reformats were performed. FINDINGS: No evidence of hydrocephalus, intracranial hemorrhage, or extra-axial fluid collection. The brain is normal in morphology. The calvarium is intact. The visualized paranasal sinuses and mastoid air cells are essentially clear . IMPRESSION: No evidence of acute intracranial abnormality. EXAM: CT of the cervical spine without contrast HISTORY: Dizziness;Trauma COMPARISON: 01/08/2023 cervical spine radiographs TECHNIQUE: Multiple contiguous axial images were obtained in a CT of the cervical spine without contr ast. Sagittal and coronal reformats were performed. FINDINGS: The vertebral bodies demonstrate normal height. Grade 1-2 anterolisthesis of C3 over C4, du e to pronounced facet remodeling, appear stable, with other multilevel degenerative changes, contributing to marked right neural foraminal narrowing and mild bony central canal stenosis at that level. No evidence of acute fracture or subluxation.. No prevertebral soft tissue swelling is seen. The posterior facets are well aligned. Normal alignment of the skull base with the cervical spine is seen. The lung apices are unremarkable. IMPRESSION: No evidence of acute osseous abnormality of the cervical spine. Chronic degenerative changes and C3 o ed C4 anterolisthesis as above.
[2024-09-08 12:28] LABS: White Blood Cell Scan 0 (OK)
[2024-09-08 12:29] LABS: Anisocytosis 1+; Blood Morphology Comment NOTED (NOT SEEN); Microcytosis 1+; Ovalocytes 1+; Platelet Estimate ADEQ
[2024-09-08 12:34] LABS: Specific Gravity 1.007 (1.005-1.030); Sqamous Epithelial <5 /HPF (None Seen); Transitional Epithelial <5 /HPF (None Seen); Urine Bacteria <20 /HPF (<20); Urine Bilirubin NEGATIVE (Negative); Urine Blood Negative (Negative); Urine Clarity Turbid (Clear); Urine Color Light-Yellow (Yellow); Urine Culture Reflex Order NOT NEEDED; Urine Glucose NEGATIVE (Negative); Urine Ketones NEGATIVE (Negative); Urine Microscopic Reflex YN ORDER UMIC; Urine Nitrite NEGATIVE (Negative); Urine Protein NEGATIVE (Negative); Urine RBC <5 /HPF (None Seen); Urine Urobilinogen Normal (Normal); Urine WBC <5 /HPF (<5); Urine pH 6.5 (5.0-7.0)
[2024-09-08] MEDS ORDERED: CEFTRIAXONE 1000 MG/VIAL ONE (15:34)
[2024-09-08] MEDS ORDERED: LORazepam 2 MG/ML VIAL ONE ×2 (15:47→17:12)
--- NOTE | 2024-09-08 15:47 | EDPHYS ---
Physician Documentation [facility] Name: Kianna Horton Age: 58 yrs Sex: Female : 1965 Arrival Date: 09/08/2024 Time: 10:24 Bed 14 Private MD: ED Physician Wallace Lemons HPI: 09/08 15:29 This 58 yrs old Female presents to ER via EMS with complaints of Fall Injury. robert 15:29 Details of fall: The patient fell from an upright position, while walking. Onset: The robert symptoms/episode began/occurred just prior to arrival. Associated injuries: The patient sustained neck injury, upper back injury, injury to the low back. Severity of symptoms: At their worst the symptoms were mild, in the emergency department the symptoms are unchanged. The patient has not experienced similar symptoms in the past. Historical: - Allergies: 10:32 No Known Allergies; kc6 - PMHx: 10:32 ulcerative colitis; Hypertension; Degenerative disc disease (ulcerative colitis); kc6 Anxiety; - PSHx: 10:32 spinal fusion (Anxiety); kc6 - Immunization history:: Adult Immunizations up to date. - Infectious Disease History:: Denies. - Social history:: Smoking status: Patient reports the use of cigarette tobacco products, denies chronic smoking, but will smoke occasionally, Reported history of juuling and/or vaping. - Family history:: not pertinent. ROS: 15:29 Constitutional: Negative for fever, chills, and weight loss, Eyes: Negative for injury, robert pain, redness, and discharge, ENT: Negative for injury, pain, and discharge, Neck: Negative for injury, pain, and swelling, Cardiovascular: Negative for chest pain, palpitations, and edema, Respiratory: Negative for shortness of breath, cough, wheezing, and pleuritic chest pain, Abdomen/GI: Negative for abdominal pain, nausea, vomiting, diarrhea, and constipation, Back: Negative for injury and pain, : Negative for injury, bleeding, discharge, and swelling, MS/Extremity: Negative for injury and deformity, Skin: Negative for injury, rash, and discoloration, Psych: Negative for depression, anxiety, suicide ideation, homicidal ideation, and hallucinations, Allergy/Immunology: Negative for hives, rash, and allergies, Endocrine: Negative for neck swelling, polydipsia, polyuria, polyphagia, and marked weight changes, Hematologic/Lymphatic: Negative for swollen nodes, abnormal bleeding, and unusual bruising, 15:29 Neuro: Positive for near syncope, weakness, Exam: 15:29 Constitutional: This is a well developed, well nourished patient who is awake, alert, robert and in no acute distress. Head/Face: Normocephalic, atraumatic. Eyes: Pupils equal round and reactive to light, extra-ocular motions intact. Lids and lashes normal. Conjunctiva and sclera are non-icteric and not injected. Cornea within normal limits. Periorbital areas with no swelling, redness, or edema. ENT: Nares patent. No nasal discharge, no septal abnormalities noted. Tympanic membranes are normal and external auditory canals are clear. Oropharynx with no redness, swelling, or masses, exudates, or evidence of obstruction, uvula midline. Mucous membranes moist. Neck: Trachea midline, no thyromegaly or masses palpated, and no cervical lymphadenopathy. Supple, full range of motion without nuchal rigidity, or vertebral point tenderness. No Meningismus. Chest/axilla: Normal chest wall appearance and motion. Nontender with no deformity. No lesions are appreciated. Cardiovascular: Regular rate and rhythm with a normal S1 and S2. No gallops, murmurs, or rubs. Normal PMI, no JVD. No pulse deficits. Respiratory: Lungs have equal breath sounds bilaterally, clear to auscultation and percussion. No rales, rhonchi or wheezes noted. No increased work of breathing, no retractions or nasal flaring. Abdomen/GI: Soft, non-tender, with normal bowel sounds. No distension or tympany. No guarding or rebound. No evidence of tenderness throughout. Back: No spinal tenderness. No costovertebral tenderness. Full range of motion. Female : Normal external genitalia. Skin: Warm, dry with normal turgor. Normal color with no rashes, no lesions, and no evidence of cellulitis. MS/ Extremity: Pulses equal, no cyanosis. Neurovascular intact. Full, normal range of motion., bilateral aka Neuro: Awake and alert, GCS 15, oriented to person, place, time, and situation. Cranial nerves II-XII grossly intact. Motor strength 5/5 in all extremities. Sensory grossly intact. Cerebellar exam normal. Normal gait. Psych: Awake, alert, with orientation to person, place and time. Behavior, mood, and affect are within normal limits. 15:29 ECG was reviewed by the Attending Physician. 15:29 Musculoskeletal/extremity: DVT Exam: No signs of deep vein thrombosis. no pain, no swelling, no tenderness, negative Homans' sign noted on exam, no appreciated bluish discoloration, no erythema, no increased warmth, Vital Signs: 10:29 BP 90 / 64; Pulse 71; Resp 17 S; Temp 98.1(O); Pulse Ox 99% on R/A; Weight 55.79 kg kc6 (R); Height 5 ft. 0 in. (R); Pain 3/10; 10:32 BP 74 / 55; kc6 10:45 BP 88 / 60; Pulse 70; Resp 17; Pulse Ox 98% on R/A; ld1 10:50 BP 79 / 64; kc6 11:02 BP 92 / 66; Pulse 71; Resp 16 S; Pulse Ox 98% on R/A; kc6 11:39 BP 108 / 78; Pulse 70; Resp 18 S; Pulse Ox 100% on R/A; kc6 12:26 BP 129 / 81; Pulse 75; Resp 18 S; Pulse Ox 99% on R/A; kc6 13:04 BP 107 / 78; Pulse 67; Resp 16 S; Pulse Ox 98% on R/A; kc6 14:08 BP 122 / 93; Pulse 58; Resp 18 S; Pulse Ox 96% on R/A; kc6 15:06 BP 140 / 94; Pulse 77; Resp 18 S; Pulse Ox 98% on R/A; kc6 16:36 BP 138 / 98 RA Supine (man/reg); Pulse 73; kc6 16:36 BP 146 / 95 RA Sitting (man/reg); Pulse 77; kc6 16:36 BP 127 / 91 RA Standing (man/reg); Pulse 83; kc6 17:00 BP 118 / 90; Pulse 75; Resp 16; Pulse Ox 97% ; me1 18:00 BP 121 / 88; Pulse 74; Resp 16; Pulse Ox 95% ; me1 19:00 BP 129 / 93; Pulse 73; Resp 15; Pulse Ox 96% ; me1 20:00 BP 140 / 84; Pulse 74; Resp 15; Pulse Ox 96% ; me1 10:29 Body Mass Index 24.02 (55.79 kg, 152.4 cm) kc6 10:29 Pain Scale: Adult kc6 MDM: 10:47 Medical Screening Exam initiated robert 15:31 Differential diagnosis: abrasion, closed head injury, contusion, fracture, laceration, robert multiple trauma, sprain, strain. Data reviewed: vital signs, nurses notes, EMS record, lab test result(s), EKG, radiologic studies, CT scan, plain films. Consideration of Admission/Observation Escalation of care including admission/observation considered. I considered the following discharge prescriptions or medication management in the emergency department Medications were administered in the Emergency Department. See MAR. Test considered but Not performed: MRI: no mri brain. Historians other than the Patient: EMS: ems well informed. pt well informed. Care significantly affected by the following chronic conditions: Hypertension, uc, htn, ddd, anxiety. 09/08 10:52 Order name: Basic Metabolic Panel; Complete Time: 15:26 [facility] 09/08 10:52 Order name: CBC with Diff; Complete Time: 15: [facility] 09/08 10:52 Order name: LFT's; Complete Time: 15:26 [facility] 09/08 10:52 Order name: Magnesium; Complete Time: 15:26 [facility] 09/08 10:52 Order name: NT PRO-BNP; Complete Time: 15:26 [facility] 09/08 10:52 Order name: PT-INR; Complete Time: 15:26 [facility] 09/08 10:52 Order name: Troponin HS; Complete Time: 15:26 [facility] 09/08 10:52 Order name: Lipase; Complete Time: 15:26 [facility] 09/08 10:52 Order name: Urinalysis w/ reflexes; Complete Time: 15:26 [facility] 09/08 12:29 Order name: CBC Smear Scan; Complete Time: 15:26 [facility] 09/08 22:42 Order name: CBC with Automated Diff [facility]UT 09/08 22:42 Order name: CBC with Automated Diff [facility]UT 09/08 22:42 Order name: Comprehensive Metabolic Panel [facility]UT 09/08 22:42 Order name: Comprehensive Metabolic Panel [facility]UT 09/08 10:52 Order name: XRAY Chest (1 view); Complete Time: 15:26 [facility] 09/08 10:58 Order name: Chest Abd Pelvis Wo Con; Complete Time: 15:26 [facility] 09/08 10:59 Order name: Head C Spine Mpr Wo Con; Complete Time: 15:26 EDMS 09/08 10:52 Order name: Cardiac monitoring; Complete Time: 11:04 [facility] 09/08 10:52 Order name: EKG - Nurse/Tech; Complete Time: 11:04 [facility] 09/08 10:52 Order name: IV Saline Lock; Complete Time: 10:56 [facility] 09/08 10:52 Order name: Labs collected and sent; Complete Time: 10:56 [facility] 09/08 10:52 Order name: O2 Per Protocol; Complete Time: 10:56 [facility] 09/08 10:52 Order name: O2 Sat Monitoring; Complete Time: 10:56 [facility] 09/08 11:20 Order name: Labs - recollect needed: recollect lavender and blue top; Complete Time: bd 11:39 09/08 15:28 Order name: Orthostatics; Complete Time: 15:33 [facility] EC:29 Rate is 68 beats/min. Rhythm is regular. QRS [place] is Normal. [place] interval is normal. QRS robert interval is normal. QT interval is normal. No Q waves. T waves are Normal. No ST changes noted. Clinical impression: Normal ECG and No evidence of ischemia. Interpreted by me. Reviewed by me. Administered Medications: 10:55 Drug: NS 0.9% IV 1000 ml IV at 1000 ml once; to be given as a bolus over 60 minutes kc6 Route: IV; Rate: 1000 ml; Site: left antecubital; 12:27 Follow up: Response: No adverse reaction; IV Status: Completed infusion; IV Intake: kc6 1000ml 15:43 Drug: Rocephin IV 1 grams IV at per protocol once; Given slow IV push per pharmacy kc6 instructions Route: IV; Rate: per protocol; Site: right hand; 16:38 Follow up: Response: No adverse reaction; IV Status: Completed infusion; IV Intake: [id number] 15:57 Drug: Thiamine IV 100 mg IV at per protocol once Route: IV; Rate: per protocol; Site: [facility] right hand; 16:38 Follow up: Response: No adverse reaction; IV Status: Completed infusion; IV Intake: 1ml kc6 15:57 Drug: Ativan IVP 1 mg IVP once Route: IVP; Site: right hand; [facility] 16:37 Follow up: Response: No adverse reaction; Anxiety decreased; RASS: Alert and Calm (0) kc6 17:09 Drug: Banana Bag - (Multivitamin IV 1 amp, NS 0.9% IV 1000 ml, Thiamine IV 100 mg, kc6 foLIC Acid IVPB 1 mg) IV at 125 ml/hr once Route: IV; Rate: 125 ml/hr; Site: left antecubital; 18:58 Follow up: Response: No adverse reaction; IV Status: Infusion continued upon admission; kc6 IV Intake: 1000ml 17:26 Drug: Ativan IVP 1 mg IVP once; verbal with readback Route: IVP; Site: right hand; kc6 18:57 Follow up: Response: No adverse reaction; Anxiety decreased; RASS: Drowsy (-1) kc6 Disposition Summary: 09/08/24 15:47 Hospitalization Ordered Notes: Hospitalization Status: Observation robert Provider: Maryann Baird cha Condition: Fair robert Problem: new robert Symptoms: have improved robert Bed/Room Type: Standard robert Location: Telemetry/MedSurg (Inpatient)(09/09/24 15:33) sp Room Assignment: 214(09/09/24 15:33) sp Diagnosis - Syncope Near robert - Hypotension due to drugs robert - Other chronic pain robert - Adverse effect of other narcotics robert - Fall on same level, unspecified robert Discharge Instructions: - Discharge Summary Sheet robert - Hypotension robert - Near-Syncope robert - Urinary Tract Infection, Adult robert - Urinary Tract Infection, Adult, Uipz-fo-Yiac robert - Near-Syncope, [id number] robert - Hypotension, [id number] robert Forms: - Medication Reconciliation Form robert - SBAR form robert - Leadership Thank You Letter robert Prescriptions: - Cipro 250 mg Oral tablet - take 1 tablet ORAL route every 12 hours; 14 tablet; Refills: 0, Product robert Selection Permitted Signatures: Dispatcher [employer] EDMS Yola Rosario Corey, MD MD cha Pinkerton, Shawna sp Leal, Jahala, RN RN [id number] Niki Connor RN RN kc6 Corrections: (The following items were deleted from the chart) 10:53 10:53 BASIC METABOLIC PANEL+C.LAB.BRZ ordered. EDMS EDMS 10:53 10:53 CBC+H.LAB.BRZ ordered. EDMS EDMS 10:53 10:53 HEPATIC FUNCTION+C.LAB.BRZ ordered. EDMS EDMS 10:53 10:53 MAGNESIUM+C.LAB.BRZ ordered. EDMS EDMS 10:53 10:53 PROBNP+C.LAB.BRZ ordered. EDMS EDMS 10:53 10:53 PROTIME (+INR)+COAG.LAB.BRZ ordered. EDMS EDMS 10:53 10:53 Troponin High Sensitivity+C.LAB.BRZ ordered. EDMS EDMS 10:53 10:53 LIPASE+C.LAB.BRZ ordered. EDMS EDMS 10:53 10:53 Urinalysis+U.LAB.BRZ ordered. EDMS EDMS 10:53 10:53 Chest Single View+RAD.RAD.BRZ ordered. EDMS EDMS 10:53 10:53 Head C Spine Cap Wo Con+CT.RAD.BRZ ordered. EDMS EDMS 12:32 11:47 Manual Differential ordered. EDMS EDMS 16:49 15:47 Telemetry/MedSurg (observation) robert ayers 16:49 15:47 robert [email or web address] 09/09 15:33 04 16:49 BR ER HOLD [id number] sp 09/09 15:33 09/08 16:49 ERHOLD- jl7 sp
--- NOTE | 2024-09-08 15:47 | ER ---
Nurse's Notes [facility] Name: Kianna Horton Age: 58 yrs Sex: Female : 1965 Arrival Date: 09/08/2024 Time: 10:24 Bed 14 Private MD: Diagnosis: Syncope Near;Hypotension due to drugs;Other chronic pain;Adverse effect of other narcotics;Fall on same level, unspecified Presentation: 09/08 10:29 Chief complaint: Patient states: she fell from standing position while getting out of [facility] bed this AM at 0930. reports hitting the back of her head, denies LOC, (-) blood thinners. EMS reports pt being hypotensive en route and that she takes morphine and Hydrocodone daily from back sx in May. Coronavirus screen: At this time, the client does not indicate any symptoms associated with coronavirus-19. Ebola Screen: No symptoms or risks identified at this time. Initial Sepsis Screen: Does the patient meet any 2 criteria? No. Patient's initial sepsis screen is negative. Does the patient have a suspected source of infection? No. Patient's initial sepsis screen is negative. Risk Assessment: Do you want to hurt yourself or someone else? Patient reports no desire to harm self or others. Onset of symptoms was September 08, 2024. 10:29 Method Of Arrival: EMS: [facility] 10:29 Acuity: ANGELICA 2 [facility] Historical: - Allergies: 10:32 No Known Allergies; [facility] - PMHx: 10:32 ulcerative colitis; Hypertension; Degenerative disc disease (ulcerative colitis); [facility] Anxiety; - PSHx: 10:32 spinal fusion (Anxiety); [facility] - Immunization history:: Adult Immunizations up to date. - Infectious Disease History:: Denies. - Social history:: Smoking status: Patient reports the use of cigarette tobacco products, denies chronic smoking, but will smoke occasionally, Reported history of juuling and/or vaping. - Family history:: not pertinent. Screenin:33 [facility] ED Fall Risk Assessment (Adult) History of falling in the last 3 months, [facility] including since admission Yes- single mechanical fall (1 pt) Confusion or Disorientation No (0 pts) Intoxicated or Sedated No (0 pts) Impaired Gait No (0 pts) Mobility Assist Device Used No (0 pt) Altered Elimination No (0 pt) Score/Fall Risk Level 0 - 2 = Low Risk Oriented to surroundings, Maintained a safe environment, Educated pt \T\ family on fall prevention, incl call for assistance when getting out of bed. Abuse screen: Denies threats or abuse. Denies injuries from another. Nutritional screening: No deficits noted. Tuberculosis screening: No symptoms or risk factors identified. Assessment: 11:03 General: Appears in no apparent distress. comfortable, well groomed, well developed, kc6 Behavior is calm, cooperative, appropriate for age, drowsy. Pain: Complains of pain in scalp and back Pain currently is 4 out of 10 on a pain scale. Neuro: Level of Consciousness is awake, alert, obeys commands, Oriented to person, place, time, situation, Appropriate for age Reports dizziness, headache occipital area, a syncopal episode weakness. Cardiovascular: Capillary refill < 3 seconds. Respiratory: Airway is patent Trachea midline Respiratory effort is even, unlabored, Respiratory pattern is regular, symmetrical. GI: No signs and/or symptoms were reported involving the gastrointestinal system. : No signs and/or symptoms were reported regarding the genitourinary system. EENT: No signs and/or symptoms were reported regarding the EENT system. Derm: No signs and/or symptoms reported regarding the dermatologic system. Skin is intact, is healthy with good turgor, Skin is pink, warm \T\ dry. Musculoskeletal: No signs and/or symptoms reported regarding the musculoskeletal system. Circulation, motion, and sensation intact. Range of motion: intact in all extremities. 12:26 Reassessment: Patient appears in no apparent distress at this time. No changes from kc6 previously documented assessment. Patient and/or family updated on plan of care and expected duration. Pain level reassessed. Patient is alert, oriented x 3, equal unlabored respirations, skin warm/dry/pink. 13:03 Reassessment: Patient appears in no apparent distress at this time. No changes from kc6 previously documented assessment. Patient and/or family updated on plan of care and expected duration. Pain level reassessed. Patient is alert, oriented x 3, equal unlabored respirations, skin warm/dry/pink. Patient states feeling better. Patient states symptoms have improved. 14:08 Reassessment: Patient appears in no apparent distress at this time. No changes from kc6 previously documented assessment. Patient and/or family updated on plan of care and expected duration. Pain level reassessed. Patient is alert, oriented x 3, equal unlabored respirations, skin warm/dry/pink. 15:06 Reassessment: Patient appears in no apparent distress at this time. No changes from kc6 previously documented assessment. Patient and/or family updated on plan of care and expected duration. Pain level reassessed. Patient is alert, oriented x 3, equal unlabored respirations, skin warm/dry/pink. 16:37 Reassessment: Patient appears in no apparent distress at this time. No changes from kc6 previously documented assessment. Patient and/or family updated on plan of care and expected duration. Pain level reassessed. Patient is alert, oriented x 3, equal unlabored respirations, skin warm/dry/pink. Vital Signs: 10:29 BP 90 / 64; Pulse 71; Resp 17 S; Temp 98.1(O); Pulse Ox 99% on R/A; Weight 55.79 kg kc6 (R); Height 5 ft. 0 in. (R); Pain 3/10; 10:32 BP 74 / 55; kc6 10:45 BP 88 / 60; Pulse 70; Resp 17; Pulse Ox 98% on R/A; ld1 10:50 BP 79 / 64; kc6 11:02 BP 92 / 66; Pulse 71; Resp 16 S; Pulse Ox 98% on R/A; kc6 11:39 BP 108 / 78; Pulse 70; Resp 18 S; Pulse Ox 100% on R/A; kc6 12:26 BP 129 / 81; Pulse 75; Resp 18 S; Pulse Ox 99% on R/A; kc6 13:04 BP 107 / 78; Pulse 67; Resp 16 S; Pulse Ox 98% on R/A; kc6 14:08 BP 122 / 93; Pulse 58; Resp 18 S; Pulse Ox 96% on R/A; kc6 15:06 BP 140 / 94; Pulse 77; Resp 18 S; Pulse Ox 98% on R/A; kc6 16:36 BP 138 / 98 RA Supine (man/reg); Pulse 73; kc6 16:36 BP 146 / 95 RA Sitting (man/reg); Pulse 77; kc6 16:36 BP 127 / 91 RA Standing (man/reg); Pulse 83; kc6 17:00 BP 118 / 90; Pulse 75; Resp 16; Pulse Ox 97% ; me1 18:00 BP 121 / 88; Pulse 74; Resp 16; Pulse Ox 95% ; me1 19:00 BP 129 / 93; Pulse 73; Resp 15; Pulse Ox 96% ; me1 20:00 BP 140 / 84; Pulse 74; Resp 15; Pulse Ox 96% ; me1 10:29 Body Mass Index 24.02 (55.79 kg, 152.4 cm) kc6 10:29 Pain Scale: Adult [facility] ED Course: 10:29 Patient arrived in ED. kc6 10:32 Triage completed. kc6 10:32 Arm band placed on. kc6 10:32 Patient has correct armband on for positive identification. Bed in low position. Call kc6 light in reach. Side rails up X2. Pulse ox on. NIBP on. Door closed. Noise minimized. Lights dimmed. Pillow given. Verbal reassurance given. 10:32 Patient maintains SpO2 saturation greater than 95% on room air. kc 10:45 Inserted saline lock: 20 gauge in left antecubital area, using aseptic technique. Blood ld1 collected. Flushed with 10 mL NS. 10:47 Wallace Lemons MD is Attending Physician. [facility] 10:49 Niki Connor RN is Primary Nurse. kc6 10:50 Missed attempt(s): 20 gauge in right forearm. Inserted saline lock: 20 gauge in right [facility] hand, using aseptic technique. Flushed with 10 mL NS. 10:56 Patient requests pain medication. kc6 11:14 XRAY Chest (1 view) In Process Unspecified. EDMS 11:20 Chest Abd Pelvis Wo Con In Process Unspecified. EDMS 11:21 Head C Spine Mpr Wo Con In Process Unspecified. EDMS 12:26 Assisted to bedside commode. kc6 12:26 Urine collected: clean catch specimen, clear. kc6 15:09 Assisted to bathroom. kc6 15:45 Maryann Baird MD is Hospitalizing Provider. [facility] 16:55 No provider procedures requiring assistance completed. Patient admitted, IV remains in kc6 place. 20:56 Provided Education on: POC. Verbalized understanding.. me1 Administered Medications: 10:55 Drug: NS 0.9% IV 1000 ml IV at 1000 ml once; to be given as a bolus over 60 minutes kc6 Route: IV; Rate: 1000 ml; Site: left antecubital; 12:27 Follow up: Response: No adverse reaction; IV Status: Completed infusion; IV Intake: kc6 1000ml 15:43 Drug: Rocephin IV 1 grams IV at per protocol once; Given slow IV push per pharmacy kc6 instructions Route: IV; Rate: per protocol; Site: right hand; 16:38 Follow up: Response: No adverse reaction; IV Status: Completed infusion; IV Intake: [id number] 15:57 Drug: Thiamine IV 100 mg IV at per protocol once Route: IV; Rate: per protocol; Site: [facility] right hand; 16:38 Follow up: Response: No adverse reaction; IV Status: Completed infusion; IV Intake: 1ml [facility] 15:57 Drug: Ativan IVP 1 mg IVP once Route: IVP; Site: right hand; [facility] 16:37 Follow up: Response: No adverse reaction; Anxiety decreased; RASS: Alert and Calm (0) [facility] 17:09 Drug: Banana Bag - (Multivitamin IV 1 amp, NS 0.9% IV 1000 ml, Thiamine IV 100 mg, kc6 foLIC Acid IVPB 1 mg) IV at 125 ml/hr once Route: IV; Rate: 125 ml/hr; Site: left antecubital; 18:58 Follow up: Response: No adverse reaction; IV Status: Infusion continued upon admission; 6 IV Intake: 1000ml 17:26 Drug: Ativan IVP 1 mg IVP once; verbal with readback Route: IVP; Site: right hand; [facility] 18:57 Follow up: Response: No adverse reaction; Anxiety decreased; RASS: Drowsy (-1) [facility] Medication: 16:55 VIS not applicable for this client. kc6 Intake: 12:27 IV: 1000ml; Total: 1000ml. kc6 16:38 IV: 1ml; Total: 1001ml. kc6 16:38 IV: 10ml; Total: 1011ml. kc6 18:58 IV: 1000ml; Total: 2011ml. kc6 Outcome: 15:47 Decision to Hospitalize by Provider. robert 16:55 Admitted to ER Hold. Please see [facility] for further documentation. kc6 16:55 Condition: good 16:55 Instructed on the need for admit, 09/09 17:02 Patient left the ED. kj2 Signatures: Dispatcher [employer] Wallace Harper MD MD cha Sims, Lauren, RN RN ld1 Niki Connor RN RN kc6 Angela Morrow, RN RN me1 Viridiana Lopez, RN RN kj2 Corrections: (The following items were deleted from the chart) 09/08 11:03 10:29 Acuity: ANGELICA 3 kc6 kc6
[2024-09-08] MEDS ORDERED: THIAMINE 200 MG/2 ML INJ ONE (15:48)
[2024-09-08] MEDS: FOLIC ACID 1 MG, MULTIVITAMINS INJ 10 ML, THIAMINE HCL 100 MG in NA CHLORIDE 0.9% 1,000 ML IV ONE (17:00)
[2024-09-08] MEDS ORDERED: ONDANSETRON 4 MG/2 ML VIAL IV PRN (22:39)
--- NOTE | 2024-09-08 22:41 | P.HP ---
Patient History Date of Service: 09/09/24 History of Present Illness: 58-year-old female with a past medical history of hypertension, colitis, recent back surgery presenting with a fall. She states she is on multiple medications. She has been smoking majority of her life about half a pack per day. She states she drinks about 3-4 beers/wine every night. She denies fevers, chills, nausea, vomiting, diarrhea. Imaging in the emergency room did not show any acute abnormalities. Blood work relatively stable. She denies any acute issues at this time Allergies No Known Drug Allergies Allergy (Unverified 10/12/14 15:47) Unknown No Known Allergies Allergy (Uncoded 05/18/17 01:46) Unknown Home Medications: Dextroamphetamine/Amphetamine [Adderall 20 mg Tablet] 40 mg PO DAILY 07/17/18 Gabapentin [Neurontin] 100 mg PO DAILY 07/17/18 Hydrocodone 10/APAP 325 [[place] 10/325] 1 tab PO Q6H PRN 07/17/18 Losartan Potassium 25 mg PO [id number] 07/17/18 Metoprolol Tartrate [Lopressor] 50 mg PO [id number] 07/17/18 Omeprazole 20 mg PO DAILYPRN PRN 07/17/18 predniSONE [Deltasone] 10 mg PO DAILY 07/17/18 Review of Systems 10-point ROS is otherwise unremarkable General: As per HPI Physical Examination - Physical Exam General: Alert, In no apparent distress HEENT: Atraumatic Neck: Supple Respiratory: Clear to auscultation bilaterally Cardiovascular: No edema Capillary refill: <2 Seconds Gastrointestinal: Normal bowel sounds Musculoskeletal: No clubbing Integumentary: No rashes Neurological: Normal speech - Studies Laboratory Data (last 24 hrs) 09/08/24 09/08/24 09/08/24 11:31 11:00 11:00 WBC 9.00 Hgb 11.3 L Hct 35.7 L Plt Count 350 PT 11.4 INR 1.00 Sodium 138 Potassium 3.9 BUN 6 L Creatinine 1.11 H Glucose 145 H Magnesium 2.3 Total Bilirubin 0.2 AST 20 ALT 35 Alkaline Phosphatase 96 Lipase 45 Assessment and Plan - Plan Falls Polypharmacy Hypertension GERD History of ulcerative colitis Chronic back pain Imaging reviewed, start telemetry, PT OT, consider MRI if she continues to fall Obtain orthostatic vital sign Will hold her metoprolol tartrate and gabapentin at this time Continue losartan Continue prednisone 10 mg daily DVT prophylaxis with SCDs - Advance Directives Does patient have a Living Will: No Does patient have a Durable POA for Healthcare: No
[2024-09-08] MEDS: NA CHLORIDE 0.9% 1,000 ML IV SCH (23:00)
[2024-09-09] MEDS ORDERED: HYDROCODONE/APAP 5/325 MG TAB ONE ×2 (02:46→13:29)
[2024-09-09] MEDS: HYDROCODONE/APAP 5/325 MG TAB PO PRN (02:47)
[2024-09-09] MEDS ORDERED: LOSARTAN POTASSIUM 50 MG TABLET ONE (05:25)
[2024-09-09 05:45] LABS: Absolute Basophils 0.3 K/uL (0-0.5); Absolute Eosinophils 0.1 K/uL (0-0.5); Absolute Lymphocytes (CBC) 1.9 K/uL (0.7-4.9); Absolute Monocytes 1.4 K/uL (0.1-1.3); Absolute Neutrophil 8.9 K/uL (1.8-8.0); Basophils % 2.1 % (0-1.3); Eosinophils % 0.8 % (0-4.4); Hematocrit 38.8 % (36.0-45.0); Hemoglobin 11.8 g/dL (12.0-15.0); Lymphocytes % 15.1 % (15.3-44.8); MCH 22.9 pg (27.0-35.0); MCHC 30.3 g/dL (32.0-36.0); MCV 75.5 fL (80-100); Monocytes % 11.2 % (3.3-12.3); Neutrophils % 70.8 % (41.7-73.7); Nucleated Red Blood Cells % 0.1 % (0-0); Platelets 375 thou/uL (152-406); RBC Red Blood Cell Count 5.14 M/uL (3.86-4.86); Red Cell Distribution Width 20.6 % (12.1-15.2)
[2024-09-09] MEDS: LOSARTAN POTASSIUM 50 MG TABLET PO SCH (05:45)
[2024-09-09 06:02] LABS: Albumin/Globulin Ratio 1.3 (1.1-1.8); Anion Gap 7.1 mEq/L (5.0-15.0); Bilirubin Total 0.3 mg/dL (0.2-1.0); Globulin 2.4 g/dL (2.3-3.5); Potassium 3.1 mEq/L (3.5-5.1); Protein, Total 5.4 g/dL (6.4-8.2)
[2024-09-09] MEDS: POTASSIUM CL SA 10 MEQ TAB PO ONE (08:48)
[2024-09-09] MEDS: predniSONE 10 MG TAB PO SCH (09:00)
[2024-09-09] MEDS ORDERED: POTASSIUM CL SA 10 MEQ TAB PO ONE (09:48)
[2024-09-09] MEDS ORDERED: predniSONE 20 MG TAB ONE (09:48)
--- NOTE | 2024-09-09 12:35 | EKG ---
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
--- NOTE | 2024-09-09 16:43 | P.PN ---
Subjective Date of Service: 09/09/24 Patient reports intermittent dizziness. She denies any chest pain. She is moderately hypertensive. Physical Examination - Vital Signs Temperature: 98.1 F Blood Pressure: 148/75 Pulse: 78 Respirations: 18 Pulse Ox (%): 97 Assessment And Plan - Plan Physical examination General: Alert and oriented x3, NAD, HEENT: Anicteric sclera, EOMI. Neck: Supple, no elevated JVD Heart: Heart sounds 1 and 2 normal, regular rhythm, normal rate, no pedal edema Lungs: Clear to auscultation bilaterally, adequate breath sounds bilaterally, no rhonchi or crackles. Abdomen: Soft, nondistended, nontender, normal bowel sounds. Extremities: No tenderness, no deformity Skin: Normal skin turgor, no rash, no nodules or ulcers. Neuro: No focal motor deficit. Normal speech. Psychiatry: Normal mood, no agitation. Falls Polypharmacy Hypertension GERD History of ulcerative colitis Chronic back pain Plan: Differential diagnosis for dizziness and fall include polypharmacy, alcohol use or deconditioning Symptoms significantly improved and patient is at baseline Given patient chronic alcohol use need to rule out alcoholic cardiomyopathy. Obtain echocardiogram Orthostatic vitals PT and OT Hold gabapentin. Resume metoprolol for persistent high BP readings. Continue prednisone 10 mg daily. Monitor electrolytes. DVT prophylaxis: Lovenox. Advanced directive: Full code
[2024-09-09] MEDS ORDERED: HYDRALAZINE HCL 20 MG/ML VIAL IV PRN (17:20)
[2024-09-09 17:26] VITALS: O2SAT 96
[2024-09-09] MEDS: METOPROLOL TAR 50 MG TAB PO SCH (17:47)
[2024-09-09] MEDS: HYDROCODONE/APAP 10/325 TAB PO PRN (17:47)
[2024-09-09 22:30] VITALS: BMI 23.8
[2024-09-10 04:28] LABS: Absolute Basophils 0.2 K/uL (0-0.5); Absolute Eosinophils 0.1 K/uL (0-0.5); Absolute Lymphocytes (CBC) 1.7 K/uL (0.7-4.9); Absolute Monocytes 0.9 K/uL (0.1-1.3); Absolute Neutrophil 7.4 K/uL (1.8-8.0); Basophils % 1.7 % (0-1.3); Eosinophils % 0.5 % (0-4.4); Hematocrit 37.2 % (36.0-45.0); Hemoglobin 11.7 g/dL (12.0-15.0); Lymphocytes % 16.4 % (15.3-44.8); MCH 23.6 pg (27.0-35.0); MCHC 31.4 g/dL (32.0-36.0); MPV 7.9 fL (7.6-11.3); Monocytes % 8.8 % (3.3-12.3); Neutrophils % 72.6 % (41.7-73.7); Nucleated Red Blood Cells % 0.1 % (0-0); Platelets 354 thou/uL (152-406); RBC Red Blood Cell Count 4.96 M/uL (3.86-4.86)
[2024-09-10 04:39] LABS: Red Cell Distribution Width 20.3 % (12.1-15.2)
[2024-09-10 04:40] LABS: Anion Gap 9.2 mEq/L (5.0-15.0); Potassium 3.2 mEq/L (3.5-5.1)
[2024-09-10] MEDS: POTASSIUM CL SA 10 MEQ TAB PO ONE ×2 (05:53→08:28)
[2024-09-10] MEDS ORDERED: METOPROLOL TAR 50 MG TAB PO SCH (06:00)
[2024-09-10] MEDS: ENOXAPARIN 40 MG/0.4 ML SQ SCH (08:28)
[2024-09-10] MEDS ORDERED: HOME MED 1 EA UNK (Dextroamphetamine/Amphetamine [Adderall 20 Mg Tablet] 20 MG Tablet) PO SCH (09:00)
--- NOTE | 2024-09-10 12:37 | ECHO ---
HEIGHT: 5 ft 0 in WEIGHT: 122 lb 0 oz DATE OF STUDY: 09/10/[address]: Claudia Newton NP 2-DIMENSIONAL: YES M.MODE: YES DOPPLER: YES COLOR FLOW: YES TDS: PORTABLE: YES DEFINITY: BUBBLE STUDY: DIAGNOSIS: SYNCOPE CARDIAC HISTORY: CATHERIZATION: NO SURGERY: NO PROSTHETIC VALVE: NO PACEMAKER: NO MEASUREMENTS (cm) DIASTOLIC (NORMALS) SYSTOLIC (NORMALS) IVSd 0.9 (0.6-1.2) LA Diam 3.2 (1.9-4.0) LVEF 60-65% LVIDd 4.1 (3.5-5.7) LVIDs 2.5 (2.0-3.5) %FS 40% LVPWd 1.2 (0.6-1.2) Ao Diam 2.6 (2.0-3.7) 2 DIMENSIONAL ASSESSMENT: RIGHT ATRIUM: NORMAL LEFT ATRIUM: NORMAL RIGHT VENTRICLE: NORMAL LEFT VENTRICLE: NORMAL TRICUSPID VALVE: TRACE TRICUSPID REGURGITATION MITRAL VALVE: NORMAL PULMONIC VALVE: NORMAL AORTIC VALVE: NORMAL PERICARDIAL EFFUSION: NONE AORTIC ROOT: NORMAL LEFT VENTRICULAR WALL MOTION: NORMAL DOPPLER/COLOR FLOW: NORMAL COMMENTS: 1. NORMAL LEFT VENTRICULAR SYSTOLIC FUNCTION, EJECTION FRACTION 60-65%, NORMAL WALL MOTION 2. NORMAL DIASTOLIC FUNCTION TECHNOLOGIST: SORAIDA CHAPA
--- NOTE | 2024-09-10 16:12 | P.DS ---
Admission Date: 09/10/24 Discharge Date: 09/10/24 Disposition: ROUTINE DISCHARGE Discharge Condition: FAIR Brief History of Present Illness: 58-year-old female with a past medical history of hypertension, colitis, recent back surgery presented with a fall. She states she is on multiple medications. She has been smoking majority of her life about half a pack per day. She states she also drinks about 3-4 beers/wine every night. She denied fevers, chills, nausea, vomiting, diarrhea. Imaging in the emergency room did not show any acute abnormalities. Blood work unremarkable. Patient was hospitalized with further evaluation. Hospital Course: Diagnosis Falls Polypharmacy Hypertension GERD History of ulcerative colitis Chronic back pain Plan: Patient dizziness likely related to low BP on presentation. Her blood pressures low on presentation. Patient takes multiple psychoactive medications which could be contributing to his symptoms. No orthostatic hypotension. Blood pressure improved, symptoms significantly improved. Echocardiogram done did not show any LV dysfunction and was unremarkable Alcohol cessation advised. Patient evaluated by PT. She is ambulating without difficulty. Gabapentin resumed on discharge Other home medications resumed on discharge. Vital Signs/Physical Exam: Temp Pulse Resp BP Pulse Ox 98.7 F 65 14 159/83 H 97 09/10/24 11:55 09/10/24 11:55 09/10/24 11:55 09/10/24 11:55 09/10/24 11:55 General: Alert, In no apparent distress, Oriented x3 HEENT: Mucous membr. moist/pink Neck: Supple, JVD not distended Respiratory: Clear to auscultation bilaterally, Normal air movement Cardiovascular: No edema, Regular rate/rhythm, Normal S1 S2 Gastrointestinal: Soft and benign, Non-distended, No tenderness Musculoskeletal: No swelling Integumentary: No rashes, No cyanosis Neurological: Normal strength at 5/5 x4 extr Laboratory Data at Discharge: WBC 10.20 thou/uL (4.3-10.9) 09/10/24 04:07 Hgb 11.7 g/dL (12.0-15.0) L 09/10/24 04:07 Hct 37.2 % (36.0-45.0) 09/10/24 04:07 Plt Count 354 thou/uL (152-406) 09/10/24 04:07 PT 11.4 SECONDS (10-13.0) 09/08/24 11:00 INR 1.00 09/08/24 11:00 Sodium 140 mEq/L (136-145) 09/10/24 04:07 Potassium 3.2 mEq/L (3.5-5.1) L 09/10/24 04:07 BUN 6 mg/dL (7-18) L 09/10/24 04:07 Creatinine 0.70 mg/dL (0.55-1.02) 09/10/24 04:07 Glucose 104 mg/dL (74-106) 09/10/24 04:07 Magnesium 2.3 mg/dL (1.6-2.4) 09/08/24 11:00 Total Bilirubin 0.3 mg/dL (0.2-1.0) 09/09/24 05:33 AST 16 U/L (15-37) 09/09/24 05:33 ALT 27 U/L (13-56) 09/09/24 05:33 Alkaline Phosphatase 82 U/L (45-117) 09/09/24 05:33 Lipase 45 U/L (13-75) 09/08/24 11:00 Home Medications: Dextroamphetamine/Amphetamine [Adderall 20 mg Tablet] 40 mg PO DAILY 07/17/18 Gabapentin [Neurontin*] 100 mg PO DAILY 07/17/18 Hydrocodone 10/APAP 325 [[place] 10/325*] 1 tab PO Q6H PRN 07/17/18 Losartan Potassium 25 mg PO [id number] 07/17/18 Metoprolol Tartrate [Lopressor*] 50 mg PO [id number] 07/17/18 Omeprazole 20 mg PO DAILYPRN PRN 07/17/18 predniSONE [Prednisone*] 10 mg PO DAILY 07/17/18 Diet: AHA Activity: Fall precautions Followup: NONE,NONE [Primary Care Provider] - Time spent managing pt's care (in minutes): 32
[2024-09-10 16:39] VITALS: BP 180/99; TEMP 99.1
== END 2024-09-10 17:50 | disposition home or self-care (01) | DRG 312 ==
LOC: ER 10:24 → ERHOLD 22:37 → 2ND 09-09 16:00 → OBSVTOIN 09-10 09:05
PROVIDERS: ADMIT Family Medicine; ATTEND Internal Medicine
DX: I95.2 Hypotension due to drugs (principal); F10.90 Alcohol use, unspecified, uncomplicated; I10 Essential (primary) hypertension; F17.210 Nicotine dependence, cigarettes, uncomplicated; K21.9 Gastro-esophageal reflux disease without esophagitis; M54.9 Dorsalgia, unspecified; R55 Syncope and collapse; G89.29 Other chronic pain; R42 Dizziness and giddiness; T40.605A Adverse effect of unspecified narcotics, initial encounter; F41.9 Anxiety disorder, unspecified; R29.6 Repeated falls; Z87.19 Personal history of other diseases of the digestive system
CPT/HCPCS: 36415; 70450; 71045; 71250; 72125; 74176; 80048; 80053; 80076; 81001; 82947; 83690; 83735; 83880; 84132; 84484; 85025; 85610; 93005; 93306; 97110; 97112; 97161; 99285; G0378; J0696; J1650; J3411; J7030; J7512

== ENCOUNTER 2025-04-04 10:31 | Emergency (ER) | payer OTHER ==
[2025-04-04] MEDS ORDERED: MORPHINE 2 MG/ML SYR ONE (11:31)
[2025-04-04] MEDS ORDERED: ONDANSETRON 4 MG/2 ML VIAL ONE (11:32)
[2025-04-04] MEDS ORDERED: KETOROLAC 30 MG/ML INJ ONE (11:32)
[2025-04-04] MEDS ORDERED: NA CHLORIDE 0.9% 1,000 ML ONE (11:32)
[2025-04-04 11:49] LABS: Absolute Lymphocytes (CBC) 1.0 K/uL (0.7-4.9); Hematocrit 46.2 % (36.0-45.0); Hemoglobin 14.6 g/dL (12.0-15.0); MCH 25.1 pg (27.0-35.0); MCHC 31.7 g/dL (32.0-36.0); MCV 79.1 fL (80-100); MPV 7.9 fL (7.6-11.3); Nucleated RBC Absolute Count 0.0 (0-0); Nucleated Red Blood Cells % 0.0 % (0-0); RBC Red Blood Cell Count 5.83 M/uL (3.86-4.86); White Blood Count 11.40 thou/uL (4.3-10.9)
[2025-04-04 12:05] LABS: ALT/SGPT 43.0 U/L (13-56); AST/SGOT 38.0 U/L (15-37); Albumin 3.7 g/dL (3.4-5.0); Albumin/Globulin Ratio 1.2 (1.1-1.8); Alkaline Phosphatase 78.0 U/L (45-117); Anion Gap 10.6 mEq/L (5.0-15.0); BUN Blood Urea Nitrogen 8.0 mg/dL (7-18); Globulin 3.0 g/dL (2.3-3.5); Glucose Level 121.0 mg/dL (74-106); Potassium 3.6 mEq/L (3.5-5.1)
--- NOTE | 2025-04-04 12:12 | RAD REPORT ---
EXAMINATION: Spine Lumbar Wo Con CLINICAL INDICATION: Female, 59 years old. PAIN TECHNIQUE: Axial CT images were obtained through the lumbar spine in soft tissue and bone windows wit hout intravenous contrast. Coronal and Sagittal reformatted images were created from the data set. One or more of the following dose reduction techniques were used: Automated exposure control, adjustm ent of the mA and/ or kV according to patient size, and/or iterative reconstruction. Unless otherwise specified, incidental findings do not require dedicated imaging follow-up. [id number]. COMPARISON: 02/17/2025 FINDINGS: ALIGNMENT: Grade 1 anterolisthesis of L3 on L4 and L4 on L5.. BONES: Status post L2 through the lumbosacral fusion. No hardware loosening identified. Diffuse osteo penia. Unchanged compression fractures at L1, L3, and L5. Laminectomy changes at L4-5. DEGENERATIVE: Moderate disc height loss L5-S1. Mild to moderate disc height loss at L3-4. SOFT TISSUE: No soft tissue abnormalities. IMPRESSION: No new acute findings compared with 02/17/2025. Similar compression fractures as noted above. Lumbosac ral fusion hardware appears intact.
--- NOTE | 2025-04-04 12:46 | EDPHYS ---
Physician Documentation [facility] Name: Kianna Horton Age: 59 yrs Sex: Female : 1965 Arrival Date: 04/04/2025 Time: 10:31 Bed 4 Private MD: ED Physician Momo Up HPI: 04/04 12:46 This 59 yrs old Female presents to ER via EMS with complaints of Back Pain. dr5 12:46 The patient presents with pain that is chronic. The symptoms are located in the low dr5 back, left low back and right low back. Onset: The symptoms/episode began/occurred 3 day(s) ago. Patient is a 59-year-old female with history of anxiety, ulcerative colitis, hypertension, chronic back pain coming in with 3 days of bilateral lower back pain. Patient denies fall, trauma, perirectal numbness, numbness or tingling to bilateral legs, or fever.. Historical: - Allergies: 10:37 No Known Drug Allergies; ll1 - PMHx: 10:37 Anxiety; Degenerative disc disease (ulcerative colitis); Hypertension; ulcerative ll1 colitis; - PSHx: 10:37 Spinal Fusion; ll1 - Immunization history:: Adult Immunizations up to date. - Infectious Disease History:: Denies. - Social history:: Smoking status: Patient reports the use of cigarette tobacco products, smokes one-half pack cigarettes per day, Reported history of juuling and/or vaping. ROS: 12:46 Constitutional: as per hpi dr5 Exam: 12:46 Constitutional: This is a well developed, well nourished patient who is awake, alert, dr5 and in no acute distress. Head/Face: Normocephalic, atraumatic. Eyes: Pupils equal round and reactive to light, extra-ocular motions intact. Lids and lashes normal. Conjunctiva and sclera are non-icteric and not injected. Cornea within normal limits. Periorbital areas with no swelling, redness, or edema. Neck: Trachea midline, no thyromegaly or masses palpated, and no cervical lymphadenopathy. Supple, full range of motion without nuchal rigidity, or vertebral point tenderness. No Meningismus. Chest/axilla: Normal chest wall appearance and motion. Nontender with no deformity. No lesions are appreciated. Cardiovascular: Regular rate and rhythm with a normal S1 and S2. Normal PMI, no JVD. No pulse deficits. Respiratory: Lungs have equal breath sounds bilaterally, clear to auscultation. No rales, rhonchi or wheezes noted. No increased work of breathing, no retractions or nasal flaring. Skin: Warm, dry with normal turgor. Normal color with no rashes, no lesions, and no evidence of cellulitis. MS/ Extremity: Pulses equal, no cyanosis. Neurovascular intact. Full, normal range of motion. Neuro: Awake and alert, GCS 15, oriented to person, place, time, and situation. Cranial nerves II-XII grossly intact. Motor strength 5/5 in all extremities. Sensory grossly intact. Cerebellar exam normal. Normal gait. 12:46 Back: pain, that is moderate, of the left low back and right low back, ROM is normal, normal spinal alignment noted, CVA tenderness, is absent, Vital Signs: 10:53 BP 165 / 73; Pulse 82; Resp 17; Temp 97.2; Pulse Ox 100% ; Weight 53.52 kg; Height 4 ll1 ft. 11 in. ; Pain 5/10; 12:53 BP 152 / 78; Pulse 84; Resp 16; Pulse Ox 99% on R/A; dd2 10:53 Body Mass Index 23.83 (53.52 kg, 149.86 cm) ll1 10:53 Pain Scale: Adult ll1 Mark Coma Score: 11:53 Eye Response: spontaneous(4). Motor Response: obeys commands(6). Verbal Response: dd2 oriented(5). Total: 15. MDM: 10:45 Medical Screening Exam initiated dr5 12:46 Differential diagnosis: arthritis, Fracture Osteoarthritis sprain, vertebral fracture. dr5 Data reviewed: vital signs, nurses notes, lab test result(s), CBC, white blood cell count, hemoglobin, hematocrit, platelets, electrolytes, sodium, potassium, chloride, serum bicarbonate, BUN, creatinine, serum glucose, radiologic studies, CT scan. Consideration of Admission/Observation Escalation of care including admission/observation considered. Escalation considered patient found to have cauda equina or cord compression. I considered the following discharge prescriptions or medication management in the emergency department I discussed and recommended Over The Counter medications, Medications were administered in the Emergency Department. See MAR. Historians other than the Patient: EMS: EMS. Care significantly affected by the following chronic conditions: Degenerative disc disease, ulcerative colitis, hypertension, anxiety. Care significantly affected by the following Social Determinants of Health: Poor access to healthcare and/or lack of insurance, Poor access to transportation, Problems related to employment. Counseling: I had a detailed discussion with the patient and/or guardian regarding the historical points, exam findings, and any diagnostic results supporting the discharge/admit diagnosis, the presence of at least one elevated blood pressure reading (>120/80) during this emergency department visit, lab results, radiology results, the need for outpatient follow up, for definitive care, a family practitioner, a orthopedic surgeon, to return to the emergency department if symptoms worsen or persist or if there are any questions or concerns that arise at home. Medication response: Response to treatment: the patient's symptoms have resolved after treatment. Special discussion: I discussed with the patient/guardian in detail that at this point there is no indication for admission to the hospital. It is understood, however, that if the symptoms persist or worsen the patient needs to return immediately for re-evaluation. Based on the history and exam findings, there is no indication for further emergent testing or inpatient evaluation. I discussed with the patient/guardian the need to see the orthopedic surgeon for further evaluation of the symptoms. ED course: Labs and CT scan results printed and given to patient. I went over all labs and scans with her. Recommended patient follow-up with spine doctor who is Dr. Garcia. Patient reports that she will call him this week and make appointment. All question answered. Patient reports her pain is much better. Strict ER precautions given. 04/04 11:30 Order name: CBC with Diff; Complete Time: 11:51 dr5 04/04 11:30 Order name: CMP; Complete Time: 12:22 dr5 04/04 11:30 Order name: CT Lumbar Spine Wo Con; Complete Time: 12:22 dr5 04/04 11:30 Order name: IV Saline Lock; Complete Time: 11:47 dr5 04/04 11:30 Order name: Labs collected and sent; Complete Time: 11: dr5 Administered Medications: 11:47 Drug: TORadol - Ketorolac IVP 15 mg IVP once Route: IVP; Site: right forearm; bp 12:02 Follow up: Response: No adverse reaction dd2 11:47 Drug: morphine IVP or IV 4 mg IVP once over 4 mins Route: IVP; Infused Over: 4 mins; bp Site: right forearm; 12:02 Follow up: Response: No adverse reaction dd2 11:47 Drug: NS 0.9% IV 1000 ml IV at 1 bolus Per protocol; to be given as a bolus over 60 bp minutes Route: IV; Rate: 1 bolus; Site: right forearm; 12:47 Follow up: IV Status: Completed infusion dd2 11:47 Drug: Ondansetron IVP 4 mg IVP once; over 2 minutes Route: IVP; Site: right forearm; bp 12:02 Follow up: Response: No adverse reaction dd2 Disposition: 15:19 Co-signature as Attending Physician, Momo Up MD I reviewed the patient's care rn provided by the Advanced Practice Provider and agree with the diagnosis and treatment plan. Disposition Summary: 04/04/25 12:45 Discharge Ordered Notes: Location: Home dr5 Condition: Stable dr5 Diagnosis - Low back pain dr5 Followup: dr5 - With: Emergency Department - When: As needed - Reason: Worsening of condition Followup: dr5 - With: Private Physician - When: 1 - 2 days - Reason: Recheck today's complaints, Continuance of care, Re-evaluation by your physician Discharge Instructions: - Discharge Summary Sheet dr5 - Acute Back Pain, Adult dr5 Forms: - Medication Reconciliation Form dr5 - Prescription Opioid Use dr5 - Patient Portal Instructions dr5 - Leadership Thank You Letter dr5 Prescriptions: - Tramadol 50 mg Oral Tablet - take 1 tablet ORAL route every 8 hours as needed; 12 tablet; Refills: 0, dr5 Product Selection Permitted - methocarbamol 750 mg Oral tablet - take 1 tablet ORAL route 3 times per day; 30 tablet; Refills: 0, Product dr5 Selection Permitted Signatures: Dispatcher [employer] EDMomo Villegas MD MD rn Peltier, Brian, RN RN bp Jesus Brar RN RN ll1 NIGEL ORELLANA RN RN dd2 Manny Decker, AILEEN-Reanna GALLAGHER-5 Corrections: (The following items were deleted from the chart) 11:31 11:31 Spine Lumbar Wo Con+CT.RAD.BRZ ordered. [facility] EDMT
--- NOTE | 2025-04-04 12:46 | ER ---
Nurse's Notes [facility] Name: Kianna Horton Age: 59 yrs Sex: Female : 1965 Arrival Date: 04/04/2025 Time: 10:31 Bed 4 Private MD: Diagnosis: Low back pain Presentation: 04/04 10:36 Chief complaint: Patient states: Back pain for 3 days. Had back surgery 05/2024 EMS ll1 states: Back pain. 20 G IV started, gave 3/4 of tylenol IV dose, IV infiltrated. VSS. Coronavirus screen: Client denies travel out of the [place] in the last 14 days. At this time, the client does not indicate any symptoms associated with coronavirus-19. Ebola Screen: Patient denies travel to an Ebola-affected area in the 21 days before illness onset. Initial Sepsis Screen: Does the patient meet any 2 criteria? No. Patient's initial sepsis screen is negative. Does the patient have a suspected source of infection? No. Patient's initial sepsis screen is negative. Risk Assessment: Do you want to hurt yourself or someone else? Patient reports no desire to harm self or others. 10:36 Method Of Arrival: EMS ll1 10:36 Acuity: ANGELICA 3 ll1 10:53 Onset of symptoms was April 02, 2025. ll1 Historical: - Allergies: 10:37 No Known Drug Allergies; ll1 - PMHx: 10:37 Anxiety; Degenerative disc disease (ulcerative colitis); Hypertension; ulcerative ll1 colitis; - PSHx: 10:37 Spinal Fusion; ll1 - Immunization history:: Adult Immunizations up to date. - Infectious Disease History:: Denies. - Social history:: Smoking status: Patient reports the use of cigarette tobacco products, smokes one-half pack cigarettes per day, Reported history of juuling and/or vaping. Screenin:53 [facility] ED Fall Risk Assessment (Adult) History of falling in the last 3 months, dd2 including since admission No falls in past 3 months (0 pts) Confusion or Disorientation No (0 pts) Intoxicated or Sedated No (0 pts) Impaired Gait No (0 pts) Mobility Assist Device Used Yes (1 pt) Altered Elimination No (0 pt) Score/Fall Risk Level 0 - 2 = Low Risk Oriented to surroundings, Maintained a safe environment, Educated pt \T\ family on fall prevention, incl call for assistance when getting out of bed, Assessed \T\ reinforced patient's understanding of fall precautions, Hourly rounding (assess needs \T\ fall precautionary measures) done. Abuse screen: Denies threats or abuse. Denies injuries from another. Nutritional screening: No deficits noted. Tuberculosis screening: No symptoms or risk factors identified. Assessment: 11:53 General: Appears in no apparent distress. uncomfortable, Behavior is calm, cooperative, dd2 appropriate for age. Pain: Complains of pain in low back area Pain currently is 8 out of 10 on a pain scale. Neuro: Level of Consciousness is awake, alert, obeys commands, Oriented to person, place, time, situation, Appropriate for age. Cardiovascular: No deficits noted. Respiratory: No deficits noted. Airway is patent Respiratory effort is even, unlabored, Respiratory pattern is regular, symmetrical. GI: No deficits noted. No signs and/or symptoms were reported involving the gastrointestinal system. : No deficits noted. No signs and/or symptoms were reported regarding the genitourinary system. EENT: No deficits noted. No signs and/or symptoms were reported regarding the EENT system. Derm: No deficits noted. No signs and/or symptoms reported regarding the dermatologic system. Musculoskeletal: Circulation, motion, and sensation intact. Range of motion: intact in all extremities, Tenderness present in low back area Reports pain in low back area since X 3 DAYS. Pain is 8 out of 10 on a pain scale. Vital Signs: 10:53 BP 165 / 73; Pulse 82; Resp 17; Temp 97.2; Pulse Ox 100% ; Weight 53.52 kg; Height 4 ll1 ft. 11 in. ; Pain 5/10; 12:53 BP 152 / 78; Pulse 84; Resp 16; Pulse Ox 99% on R/A; dd2 10:53 Body Mass Index 23.83 (53.52 kg, 149.86 cm) ll1 10:53 Pain Scale: Adult ll1 Mark Coma Score: 11:53 Eye Response: spontaneous(4). Motor Response: obeys commands(6). Verbal Response: dd2 oriented(5). Total: 15. ED Course: 10:32 Patient arrived in ED. al6 10:37 Triage completed. ll1 10:38 Arm band placed on. ll1 10:45 Decker, Manny, POOL SERVICER-C is PHCP. dr5 10:45 Momo Up MD is Attending Physician. dr5 11:03 Patient placed in an exam room, on a stretcher. ll1 11:47 Juan Pablo Chisholm, RN is Primary Nurse. bp 11:47 Initial lab(s) drawn, by me, sent to lab. Inserted saline lock: 20 gauge in right bp forearm, using aseptic technique. Blood collected. Flushed with 10 mL NS. 11:49 CT Lumbar Spine Wo Con In Process Unspecified. EDMS 11:51 NIGEL ORELLANA, RN is Primary Nurse. dd2 11:53 Patient has correct armband on for positive identification. Bed in low position. Call dd2 light in reach. Side rails up X2. Client placed on continuous cardiac and pulse oximetry monitoring. NIBP monitoring applied. Door closed. Noise minimized. Warm blanket given. Verbal reassurance given. 11:53 No provider procedures requiring assistance completed. Patient maintains SpO2 dd2 saturation greater than 95% on room air. 12:53 Provided Education on: D/C EDUCATION. dd2 12:53 IV discontinued, intact, bleeding controlled, No redness/swelling at site. Pressure dd2 dressing applied. Administered Medications: 11:47 Drug: TORadol - Ketorolac IVP 15 mg IVP once Route: IVP; Site: right forearm; bp 12:02 Follow up: Response: No adverse reaction dd2 11:47 Drug: morphine IVP or IV 4 mg IVP once over 4 mins Route: IVP; Infused Over: 4 mins; bp Site: right forearm; 12:02 Follow up: Response: No adverse reaction dd2 11:47 Drug: NS 0.9% IV 1000 ml IV at 1 bolus Per protocol; to be given as a bolus over 60 bp minutes Route: IV; Rate: 1 bolus; Site: right forearm; 12:47 Follow up: IV Status: Completed infusion dd2 11:47 Drug: Ondansetron IVP 4 mg IVP once; over 2 minutes Route: IVP; Site: right forearm; bp 12:02 Follow up: Response: No adverse reaction dd2 Medication: 11:53 VIS not applicable for this client. dd2 Outcome: 12:45 Discharge ordered by . dr5 12:53 Discharged to home ambulatory, dd2 12:53 Condition: stable 12:53 Discharge instructions given to patient, Instructed on discharge instructions, follow up and referral plans. medication usage, Demonstrated understanding of instructions, follow-up care, medications, Prescriptions given X 2, 13:03 Patient left the ED. dd2 Signatures: Dispatcher [employer] EDMS Juan Pablo Chisholm RN RN Jesus Jay RN RN ll1 NIGEL ORELLANA RN RN dd2 Manny Decker, POOL SERVICER-C POOL SERVICER-Cdr5 Jeanne Huffman Corrections: (The following items were deleted from the chart) 10:54 10:36 Chief complaint: EMS states: Back pain. 20 G IV started, gave 3/4 of tylenol IV ll1 dose, IV infiltrated. VSS ll1 10:55 10:53 BP 195 / 73; Pulse 82bpm; Resp 17bpm; Pulse Ox 100%; Temp 97.2F; 53.52 kg; Height ll1 4 ft. 11 in.; BMI: 23.8; Pain 5/10, Adult; ll1
[2025-04-04 13:17] VITALS: TEMP 97.2
[2025-04-04 13:22] VITALS: BP 152/78; O2SAT 99
== END 2025-04-04 13:03 | disposition home or self-care (01) ==
LOC: ER 10:31
DX: M54.50 Low back pain, unspecified (principal); F17.200 Nicotine dependence, unspecified, uncomplicated
CPT/HCPCS: 96361; 85025; 36415; 80053; 72131; 96375; 96374; 99284; J1885; J2270; J2405; J7030